=== PATIENT | female | born 1985 | race Caucasian/White ===

== ENCOUNTER 2018-12-30 11:50 | Outpatient (REF) | payer MEDICAID, SELFPAY ==
--- NOTE | 2018-12-30 10:45 | PAPFT_PTH ---
PATIENT: Shania Goff LOC: [facility] U#:[id number] AGE/SX: 33/F ROOM: RE12/30/[address]: MILTON Sauer : 1985 BED: DIS: 12/30/2018 SPEC #: [id number] RECD: 12/30/18 13:02 STATUS: PANKAJHarpreet MEIER #: [id number] PAOLA: 12/30/18 10:[address]: Evon Dean [facility] Cytology RECD BY: Claudia Phelan ENTERED: 12/30/18 13:02 SP TYPE: PAPFT OTHR DR: Jen Montanez Tissues: 1 - CX/ENDOCX FOR PAP SMEARS Procedures: PAP THIN PREP/UVM Screening HPV DNA PROBE Comments: [id number]
[2018-12-31 14:43] LABS: Chlamydia Result Negative; GC Result Negative; Specimen Description CERVIX
== END 2018-12-30 12:10 ==
LOC: LBN 11:50
PROVIDERS: PCP Nurse Practitioner; Visit Provider Nurse Practitioner Family
DX: Z11.3 Encounter for screening for infections with a predominantly sexual mode of transmission (principal); Z12.4 Encounter for screening for malignant neoplasm of cervix; Z11.51 Encounter for screening for human papillomavirus (HPV)
CPT/HCPCS: 87491; 87591; 88142; 87624

== ENCOUNTER 2019-02-08 19:37 | Emergency (ER) | payer MEDICAID, SELFPAY ==
[2019-02-08 19:40] VITALS: BP 183/101; PULSE 92; RESP 16; TEMP 36.7; O2SAT 100
--- NOTE | 2019-02-08 19:51 | ED.GENADUL_ITS ---
Discharge Plan Disposition Patient Disposition: HOME Condition: Stable Discharge Details Chief Complaint: Cellulitis Clinical Impression: Paronychia Primary Care Provider: Jen Montanez ED Provider: Iam Hobbs Home Meds and New Rx's Prescriptions: New sulfamethoxazole-trimethoprim [Bactrim DS] 800-160 mg tablet 1 tab PO BID Qty: 14 RF: 0 No Action medroxyprogesterone [Depo-Provera] 150 mg/mL suspension 150 mg IM Q 12 WEEKS Qty: 1 RF: 3 lisinopril 10 MG tablet 10 mg PO DAILY RF: 0 Discharge Instructions Instructions: Paronychia (ED) Additional Instructions: follow up with your primary care provider within 1-2 weeks. You should have your blood pressure rechecked as it was elevated here if you have redness spreading down the finger or severe worsening pain return to the emergency department Medical Decision Making pt comes in after she has had distal left middle finger redness and today squeeze the area aroud the fingernail and had discharge so came here. no fevers or systmeic symptoms, arrives in no distress. The distal dorsal left middle finger around the nail bed is red and there is no longer fluctuance in the area that she drains. No pain on finger bed so doubt felmehrdad. Suspect she had a paronychia that she drained prior to arrival. Will start abx, advised f/u with pcp and return precautions given Differential Diagnosis paronychia, cellulitis HPI General Mode of arrival: ambulatory . Date/Time Provider Initiated Documentation: 02/08/19 19:44 . Limitations to Documentation: no limitations . Information obtained by: patient . History of Present Illness 33 year old F presents to the emergency department with the chief complaint of left middle finger redness, described as moderate, Quality is described as aching, and is localized to the left and upper extremity. Patient started experiencing this week(s) (1) and it has been constant. No relieving factors improve symptom(s), No exacerbating factors reported . Related Data Home Medications Medication Instructions Recorded Confirmed lisinopril 10 mg PO DAILY tab-cap 03/09/16 02/08/19 medroxyprogesterone 150 mg/mL 150 mg IM Q 12 WEEKS #1 vial 10/02/18 02/08/19 intramuscular suspension sulfamethoxazole-trimethoprim 1 tab PO BID #14 tab 02/08/19 [Bactrim DS] Previous Rx's Medication Instructions Recorded medroxyprogesterone 150 mg/mL 150 mg IM Q 12 WEEKS #1 vial 10/02/18 intramuscular suspension sulfamethoxazole-trimethoprim 1 tab PO BID #14 tab 02/08/19 [Bactrim DS] Allergies Allergy/AdvReac Type Severity Reaction Status Date / Time No Known Drug Allergies Allergy Verified 02/08/19 19:45 General Stated Complaint: Cellulitis RICHARD: 4 Review of Systems Review of Systems All systems reviewed & are unremarkable except as noted in HPI and below Constitutional Denies chills, Denies fever(s) and Denies weakness Cardiovascular Denies chest pain and Denies dyspnea Respiratory Denies cough and Denies dyspnea Gastrointestinal Denies abdominal pain, Denies nausea and Denies vomiting Neurologic Denies weakness [facility] Social History Smoking/Tobacco Use Status: Never Alcohol Intake: current Alcohol Intake frequency: holidays/special occasions only Drug use: Never Do you feel safe at home: Yes Do you feel safe in your relationship?: Yes Female Reproductive History Menstrual control method: progesterone injection History History 4 Para 3 Hx # Term Pregnancies Multiple births Hx # Pregnancies Ectopic pregnancies AB induced Hx Number of Living Children AB spontaneous Exam Const General: no acute distress Orientation: alert HENMT Head: normal to inspection Ears: external ears normal General nose exam: external nose normal Mouth: moist mucous membranes Eyes General: appearance normal, both eyes and all related structures Neck Neck: normal visual inspection Resp Effort & Inspection: normal respiratory effort and able to speak in complete sentences Cardio Rate: regular rate Skin General skin exam: elasticity normal Neuro General: alert and oriented x3 Extrem General: normal capillary refill Psych Mental Status: mental status grossly normal Course Vital Signs Temperature 36.7 C 02/08/19 19:40 Pulse 92 H 02/08/19 19:40 Respiratory Rate 16 02/08/19 19:40 Blood Pressure 183/101 H 02/08/19 19:40 Pulse Oximetry 100 02/08/19 19:40 Temperature 36.7 C 02/08/19 19:40 Temperature Source Skin 02/08/19 19:40 Pulse 92 H 02/08/19 19:40 Respiratory Rate 16 02/08/19 19:40 Respiratory Effort Non-Labored 02/08/19 19:43 Blood Pressure 183/101 H 02/08/19 19:40 Pulse Oximetry 100 02/08/19 19:40 Pain Level 6 02/08/19 19:40
[2019-02-08 20:08] VITALS: BP 156/95; PULSE 70; RESP 16
[2019-02-08] MEDS: Sulfameth/Trimeth DS TAB 1 TAB PO (20:08)
== END 2019-02-08 20:10 | disposition home or self-care (01) ==
PROVIDERS: Emergency Provider Emergency Medicine; PCP Nurse Practitioner
DX: L03.012 Cellulitis of left finger (principal)
CPT/HCPCS: 99283

== ENCOUNTER 2019-04-29 11:51 | Outpatient (CLI) | payer MEDICAID, SELFPAY ==
[2019-04-29 19:46] LABS: ALT 29 U/L (14-59); AST 14 U/L (15-37); Alkaline Phosphatase 74 U/L (46-116); BUN 17 mg/dL (7-18); Bilirubin, Total 0.5 mg/dL (0.2-1.0); CREATININE 0.91 mg/dL (0.55-1.02); Calculated LDL 100 mg/dL; Chloride 105 mmol/L (98-107); Cholesterol 164 mg/dL (50-200); Glucose 89 mg/dL (70-100); HDL Cholesterol 38 mg/dL (40-60); Sodium 141 mmol/L (136-145); Total Protein 6.9 g/dL (6.4-8.2); Triglyceride 133 mg/dL (30-150)
== END 2019-04-29 12:11 ==
PROVIDERS: PCP Nurse Practitioner; Visit Provider Nurse Practitioner
DX: I10 Essential (primary) hypertension (principal)
CPT/HCPCS: 80053; 80061

== ENCOUNTER 2019-06-25 11:04 | Outpatient (REF) | payer MEDICAID, SELFPAY ==
--- NOTE | 2019-06-25 11:00 | ENDO_PTH ---
PATIENT: Shania Goff LOC: [facility] U#:[id number] AGE/SX: 34/F ROOM: RE06/25/[address]: Isabelle Barrera : 1985 BED: DIS: 06/25/2019 SPEC #: [id number] RECD: 06/25/19 13:07 STATUS: EMILI REQ #: [id number] PAOLA: 06/25/19 11:[address]: Isabelle Barrera DEPT: Surgical Specimen RECD BY: Claudia Phelan ENTERED: 06/25/19 13:07 SP TYPE: Endo OTHR DR: Jen Montanez Tissues: 1 - ENDOCERVICAL BX/CURRETTE Procedures: GROSS AND MICRO LEVEL 4 Comments: [id number]
== END 2019-06-25 11:24 ==
LOC: LBN 11:04
PROVIDERS: PCP Nurse Practitioner; Visit Provider Obstetrics & Gynecology Gynecology
DX: N87.9 Dysplasia of cervix uteri, unspecified (principal); R87.810 Cervical high risk human papillomavirus (HPV) DNA test positive
CPT/HCPCS: 88305

== ENCOUNTER 2019-08-09 12:04 | Emergency (ER) | payer MEDICAID, SELFPAY ==
[2019-08-09 12:16] VITALS: BP 176/98; PULSE 97; RESP 18; TEMP 36.8; O2SAT 99
[2019-08-09 12:19] LABS: Bilirubin Negative (Negative); Blood Trace-lysed (Negative); Clarity Clear (Clear); Glucose Negative (Negative); Ketones Negative (Negative); Leukocyte Esterase Trace (Negative); Nitrite Negative (Negative); Urobilinogen 0.2 EU/dL (Up TO 0.2); pH 6.5 (5-8)
[2019-08-09 12:28] LABS: Epithelial Cells Few HPF (Negative); Other Cells Few Transitional (Negative); RBC Negative HPF (0-2); WBC 0-2 HPF (0-5)
[2019-08-09 12:29] LABS: Bacteria Negative HPF (Negative); C & S Indicated? No/Sq. Contamination; Casts Negative LPF (Negative); Crystals Negative HPF (Negative); Mucus Negative (Negative)
--- NOTE | 2019-08-09 12:38 | ED.GENADUL_ITS ---
Discharge Plan Disposition Patient Disposition: HOME Condition: Stable Discharge Details Chief Complaint: Urinary Clinical Impression: Vomiting, Abdominal pain, Cholelithiasis Primary Care Provider: Jen Montanez ED Provider: Krissy Correia Home Meds and New Rx's Prescriptions: No Action Mirena 20 mcg/24 hours (5 yrs) 52 mg intrauterine device 1 device IY ONCE RF: 0 lisinopril 10 MG tablet 10 mg PO DAILY RF: 0 Medical Decision Making 1230 -- 34-year-old female presents with 5 days of vomiting, upper abdominal pain and lower back pain. She states she has a history of kidney stones and states this seems similar. She states she has vomited 1-3 times daily which is mainly consisted of food or bile. States her upper abdominal pain is intermittent, sharp and stabbing. She admits to urinary frequency but states she has been drinking more water and denies any dysuria or hematuria. She admits to normal bowel movements and denies any diarrhea. Denies any known fever. Blood pressure hypertensive, otherwise vitals within normal limits. Afebrile. She appears nontoxic. Tenderness to palpation of upper abdomen and bilateral CVA tenderness. Urinalysis obtained on arrival and notes trace leukocyte esterase and trace blood but no obvious other source of infection. Differential diagnosis includes gastritis, peptic ulcer disease, cholelithiasis, cholecystitis, kidney stone, etc. Will place an IV, bolus IV fluids, screening labs, CT renal colic and give a dose of Zofran, Pepcid, GI cocktail as well as Toradol. 1420 --labs and imaging reviewed. White blood cell count 11. Potassium 3.4. Lipase within normal limits. CT noted findings suspicious for noncalcified gallstone or sludge at the neck of the gallbladder. No pericholecystic fluid or biliary ductal dilatation. Bilateral nonobstructing renal calculi but no ureteral calculi or hydronephrosis. Patient states she feels somewhat better. Discussed that labs are reassuring and that presentation may not be consistent with acute cholecystitis. Contacted radiology and will attempt to obtain gallbladder ultrasound. If unavailable, patient states she feels fine to return to the hospital tomorrow for gallbladder ultrasound. Medical Records Medical records reviewed: Yes I reviewed the patient's medical records. Imaging Data Radiologic Study: Radiologist's impression: Addendum created by Mary Alcantar MD on 08/09/2019 2:12:31 PM EST There is an error in the impression. The impression should read: 1.Bilateral nonobstructing renal calculi. No ureteral calculi or hydronephrosis. 2. Findings suspicious for non-calcified gallstone or sludge at neck of gallbladder. No evidence of pericholecystic fluid nor biliary ductal dilatation. Initial report created on 08/09/2019 2:10:40 PM EST PROCEDURE INFORMATION: Exam: CT Abdomen And Pelvis Without Contrast Exam date and time: 08/09/2019 1:02 PM Age: 34 years old Clinical indication: Localized; Patient HX: Upper abdominal pain, lower back pain, gross hematuria x2 days, HX of kidney stones, no surgeries, not . TECHNIQUE: Imaging protocol: Computed tomography of the abdomen and pelvis without contrast. Radiation optimization: All CT scans at this facility use at least one of these dose optimization techniques: automated exposure control; mA and/or kV adjustment per patient size (includes targeted exams where dose is matched to clinical indication); or iterative reconstruction. COMPARISON: No relevant prior studies available. FINDINGS: Lungs: No significant abnormality is identified at the lung bases. Liver: No focal intrahepatic abnormality is identified. The superior aspect of the liver was not included in the [id number]. Gallbladder and bile ducts: There is possible low-density gallstone or sludge within the gallbladder. This is particularly seen at the neck of the gallbladder. There is no evidence of pericholecystic fluid There is no evidence of biliary ductal dilatation. Pancreas: Pancreas is unremarkable. Spleen: Superior aspect of the spleen was not included in [id number]. The spleen is otherwise unremarkable. Adrenals: Adrenals are unremarkable. Kidneys and ureters: Bilateral nonobstructing renal calculi are noted. On the left, there is a calculus in the left mid kidney. It measures approximately 4-5 mm in maximum diameter on series 5 image 37. On the right, there is a calculus at the lower pole of the right kidney measuring approximately 4 mm in diameter on sagittal reformatted image 80. No ureteral calculi or hydronephrosis is identified. There is no evidence of a discrete renal cortical mass. Stomach and bowel: Evaluation of the bowel is limited without oral, IV contrast but there is no evidence of bowel obstruction, mass or pneumatosis. There are a few scattered colonic diverticuli but no evidence of acute diverticulitis. Appendix: There are no findings to suggest acute appendicitis Intraperitoneal space: No free fluid focal collections or free intraperitoneal air. Vasculature: Vascular calcification is noted within the abdomen, pelvis. The aorta is non-aneurysmal. Lymph nodes: There are small mesenteric, retroperitoneal nodes which are not enlarged by size criteria Bladder: Urinary bladder is unremarkable. No bladder calculi Reproductive: The uterus is anteverted. Intrauterine device is noted. There is no significant adnexal abnormality identified. Bones/joints: Degenerative disc disease at L5-S1. No acute or destructive bony abnormality is identified. Soft tissues: Small fat containing umbilical hernia. IMPRESSION: Bilateral nonobstructing renal calculi. No ureteral calculi or hydronephrosis. Patient has had prior cystectomy. No significant biliary ductal dilatation. HPI General Mode of arrival: ambulatory . Date/Time Provider Initiated Documentation: 08/09/19 12:30 . Limitations to Documentation: no limitations . Information obtained by: patient . History of Present Illness 34 year old F presents to the emergency department with the chief complaint of vomiting, abdominal pain, back pain , Quality is described as stabbing and sharp, and is localized to the back and abdomen. Patient reports radiation to back. Patient started experiencing this day(s) (5) and it has been intermittent. No relieving factors improve symptom(s), No exacerbating factors reported . Patient notes loss of appetite; denies fever/chills, malaise, nausea/vomiting and shortness of breath. Patient did receive the following treatments prior to arrival, none Related Data Home Medications Medication Instructions Recorded Confirmed lisinopril 10 mg PO DAILY tab-cap 03/09/16 08/09/19 levonorgestrel 20 mcg/24 hours (5 1 device IY ONCE 07/09/19 08/09/19 yrs) 52 mg intrauterine device Allergies Allergy/AdvReac Type Severity Reaction Status Date / Time No Known Drug Allergies Allergy Verified 08/06/19 09:56 General Stated Complaint: Urinary RICHARD: 4 Review of Systems All systems reviewed & are unremarkable except as noted in HPI and below Constitutional Constitutional: Reports as per HPI, Denies chills and Denies fever(s) Eyes Eyes: Denies blurry vision ENT Ears, Nose, Mouth, and Throat: Denies dizziness, Denies sore throat and Denies throat swelling Cardiovascular Cardiovascular: Denies chest pain and Denies dyspnea Respiratory Respiratory: Denies cough and Denies dyspnea Gastrointestinal Gastrointestinal: Reports abdominal pain, Denies diarrhea and Reports vomiting Genitourinary Genitourinary: Denies hematuria and Denies dysuria Musculoskeletal Musculoskeletal: Reports back pain and Denies numbness Integumentary/Breasts Skin/Breast: Denies lesions and Denies rash Neurologic Neurologic: Denies dizziness, Denies focal weakness and Denies numbness Allergic/Immunologic Allergic/Immunologic: Denies throat swelling [facility] Medical History (Updated 08/09/19 @ 17:24 by Krissy Correia DO) ASCUS with positive high risk HPV (Resolved 08/10/15) Body mass index (BMI) of 40.0 to 49.9 (Chronic) 06/25/2019 Contraception (Acute 04/11/15) 06/25/2019 Depo-Provera times ~ 5 years after of youngest child. Patient counseled regarding Mirena IUD. Hypertension (Acute 07/07/15) Social History (Updated 06/25/19 @ 16:40 by Isabelle Barrera MD) Smoking/Tobacco Use Status: Never Alcohol Intake: current Alcohol Intake frequency: holidays/special occasions only Drug use: Never Household members: children and other Details: Not relationship. 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 Sexually active: No (Not in relationship) Do you feel safe at home: Yes Do you feel safe in your relationship?: Yes Female Reproductive History Menstrual control method: progesterone injection History History 4 Para 3 Hx # Term Pregnancies Multiple births Hx # Pregnancies Ectopic pregnancies AB induced Hx Number of Living Children AB spontaneous Exam Const General: cooperative, healthy appearing and no acute distress HENMT Head: normal to inspection Face and sinus: normal facial exam Eyes General: appearance normal, both eyes and all related structures EOM: EOM intact bilaterally Neck Neck: normal visual inspection and No submandibular swelling Lymphatic: no lymphadenopathy noted Chest Chest: normal inspection of the chest and no tenderness Resp Effort & Inspection: normal respiratory effort and able to speak in complete sentences Auscultation: clear to auscultation bilaterally Cardio Rate: regular rate Rhythm: regular rhythm GI Inspection: normal to inspection and obesity Palpation: soft, not firm, not rigid and tender in the epigastrum, in the LUQ and in the RUQ Auscultation: hypoactive bowel sounds Back/Spine/Pelvis Back: CVA tenderness (b/l ) Thoracic/Lumbar Spine: paraspinal tenderness (b/l lumbar) Skin General skin exam: no rashes or lesions noted Neuro General: alert, awake and oriented x3 Cognition: normal cognition Speech: speech normal Motor: muscle tone normal throughout Sensory Exam: no sensory deficits noted Extrem General: normal to inspection, full ROM, normal capillary refill, no calf tenderness bilaterally and no edema Psych Appearance: grossly normal Mental Status: mental status grossly normal Speech and Movement: speech and movement normal Affect: normal affect Course Vital Signs Vital signs: Vital Signs Temperature 98.2 F 08/09/19 12:16 Pulse 97 H 08/09/19 12:16 Respiratory Rate 18 08/09/19 12:16 Blood Pressure 176/98 H 08/09/19 12:16 Pulse Oximetry 99 08/09/19 12:16 Temperature 98.2 F 08/09/19 12:16 Temperature Source Skin 08/09/19 12:16 Pulse 97 H 08/09/19 12:16 Respiratory Rate 18 08/09/19 12:16 Respiratory Effort Non-Labored 08/09/19 12:19 Blood Pressure 176/98 H 08/09/19 12:16 Blood Pressure Position Sitting 08/09/19 12:16 Pulse Oximetry 99 08/09/19 12:16 Oxygen Delivery Method Room Air 08/09/19 12:16 Oxygen Flow Rate 0 08/09/19 12:16 Pain Level 9 08/09/19 12:16 Lab/Test Results Lab/Test Results: Laboratory Tests Range/Units 08/09/19 12:14 Urine Color (Yellow) Yellow Urine Clarity (Clear) Clear Urine pH (5-8) 6.5 Ur Specific [place] (1.005-1.025) 1.010 Urine Protein (Negative) mg/dL Negative Urine Ketones (Negative) mg/dL Negative Urine Blood (Negative) Trace-lysed H Urine Nitrite (Negative) Negative Urine Bilirubin (Negative) Negative Urine Urobilinogen (Up TO 0.2) EU/dL 0.2 Ur Leukocyte Esterase (Negative) Trace H Urine RBC (0-2) HPF Negative Urine WBC (0-5) HPF 0-2 Ur Epithelial Cells (Negative) HPF Few Urine Crystals (Negative) HPF Negative Urine Bacteria (Negative) HPF Negative Urine Casts (Negative) LPF Negative Urine Mucus (Negative) Negative Urine Other (Negative) Few transitional Ur Culture Indicated? No/sq. contamination Urine Glucose (Negative) mg/dL Negative
--- NOTE | 2019-08-09 13:29 | DI.CT_ITS ---
EXAM: CT RENAL COLIC WO CLINICAL HISTORY: upper abd pain, lower back pain. TECHNIQUE: Imaging Protocol: Axial computed tomography images with coronal and sagittal reformatted images were created and reviewed. CONTRAST MATERIAL: Intravenous: Omnipaque 350 Contrast volume:0 mL contrast route:IV - Oral: No COMPARISON: ABD PELVIS WITH CONTRAST from 11/21/2011 FINDINGS: ABDOMEN: Lung Bases: Normal where visualized. Liver: Normal density. No measurable mass. Dome not included. Gallbladder and biliary tract: Sludge or low-density stones seen within the gallbladder. No biliary ductal dilatation. Pancreas: Normal density, no abnormal calcifications or inflammatory process. Spleen: Normal. Kidneys: Normal size, contour and axis. There are bilateral nonobstructing stones. No masses seen. N o ureterolithiasis or hydronephrosis. Adrenal glands: No masses seen. Abdominal Aorta: Abdominal portion non-dilated. PELVIS: Bladder: Symmetric distention, no gross wall thickening. Bowel: No obstruction or bowel wall thickening. Colonic diverticulosis but no evidence of acute diver ticulitis. Normal appendix. Peritoneal cavity: No ascites, collection or mesenteric inflammatory response. Bones: Mild degenerative changes. Lymph nodes: Unremarkable. Reproductive organs: There is an intrauterine device in place. Otherwise unremarkable. IMPRESSION: 1. Bilateral nonobstructing nephrolithiasis. No ureterolithiasis or hydronephrosis. 2. Sludge or low-density stones within the gallbladder. No biliary ductal dilatation. Ultrasound ma y be considered for further evaluation. DATA REPOSITORY: All CT scans at this facility are submitted to the National Radiology Data Registry (NRDR) Dose Index Registry (DIR) with the [employer] (ACR). RADIATION OPTIMIZATION: All CT scans at this facility use at least one of these dose optimization te chniques: automated exposure control; mA and/or kV adjustment per patient size (includes targeted exa ms where dose is matched to clinical indication); or iterative reconstruction.
[2019-08-09] MEDS: FAMOTIDINE 20 MG/50 ML BAG 200 MG IVPB (13:38)
[2019-08-09] MEDS: Ondansetron 4 MG/2 ML VIAL IVP (13:39)
[2019-08-09] MEDS: Normal Saline 1,000 ML 1000 ML IV (13:39)
[2019-08-09] MEDS: Normal Saline Flush 10 ML SYR IVP (13:40)
[2019-08-09 13:45] LABS: Abs Immature Grans 0.04 k/cumm (0.0-0.09); Absolute Basophil Count 0.02 k/cumm (0.0-0.2); Absolute Eosinophil Count 0.14 k/cumm (0.0-0.7); Absolute Lymphocyte Count 2.69 k/cumm (1.2-3.4); Absolute Monocyte Count 0.88 k/cumm (0.11-0.7); Basophils % 0.2; Eosinophils % 1.3; HCT 38.1 % (36.0-46.0); HGB 13.1 g/dL (12.0-15.5); Immature Grans % 0.4 %; Lymphocytes % 24.3; Mean Corp. HGB Concentration 34.4 g/dL (32.0-36.0); Mean Corpuscular Hemoglobin 30.1 pg (27.0-33.0); Mean Corpuscular Volume 87.6 fL (80-95); Mean Platelet Volume 10.1 fL (8.0-11.0); Neutrophils % 65.8; Platelet Count 268 x1000/uL (130-400); RBC 4.35 m/cumm (4.00-5.20); RBC Distribution Width 12.8 % (11.7-14.6); White Blood Cell Count 11.06 k/cumm (4.4-10.8)
[2019-08-09 13:50] LABS: Absolute Neutrophil Count 7.28 k/cumm (1.2-6.7)
[2019-08-09 13:54] LABS: ALT 38 U/L (14-59); AST 22 U/L (15-37); Albumin 4.1 g/dL (3.4-5.0); Alkaline Phosphatase 84 U/L (46-116); Anion Gap 11.1 mmol/L (3-11); BUN 9 mg/dL (7-18); Bilirubin, Total 0.5 mg/dL (0.2-1.0); CO2 26.9 mmol/L (21.0-32.0); CREATININE 0.93 mg/dL (0.55-1.02); Calcium 9.2 mg/dL (8.5-10.1); Chloride 103 mmol/L (98-107); Glucose 97 mg/dL (74-106); Lipase 113 U/L (73-393); Potassium 3.4 mmol/L (3.5-5.1); Sodium 141 mmol/L (136-145); Total Protein 7.5 g/dL (6.4-8.2)
--- NOTE | 2019-08-09 14:08 | DI.VRAD_ITS ---
Addendum created by Mary Alcantar MD on 08/09/2019 2:12:31 PM EST There is an error in the impression. The impression should read: 1.Bilateral nonobstructing renal calculi. No ureteral calculi or hydronephrosis. 2. Findings suspicious for non-calcified gallstone or sludge at neck of gallbladder. No evidence of pericholecystic fluid nor biliary ductal dilatation. Initial report created on 08/09/2019 2:10:40 PM EST PROCEDURE INFORMATION: Exam: CT Abdomen And Pelvis Without Contrast Exam date and time: 08/09/2019 1:02 PM Age: 34 years old Clinical indication: Localized; Patient HX: Upper abdominal pain, lower back pain, gross hematuria x2 days, HX of kidney stones, no surgeries, not . TECHNIQUE: Imaging protocol: Computed tomography of the abdomen and pelvis without contrast. Radiation optimization: All CT scans at this facility use at least one of these dose optimization techniques: automated exposure control; mA and/or kV adjustment per patient size (includes targeted exams where dose is matched to clinical indication); or iterative reconstruction. COMPARISON: No relevant prior studies available. FINDINGS: Lungs: No significant abnormality is identified at the lung bases. Liver: No focal intrahepatic abnormality is identified. The superior aspect of the liver was not included in the [id number]. Gallbladder and bile ducts: There is possible low-density gallstone or sludge within the gallbladder. This is particularly seen at the neck of the gallbladder. There is no evidence of pericholecystic fluid There is no evidence of biliary ductal dilatation. Pancreas: Pancreas is unremarkable. Spleen: Superior aspect of the spleen was not included in [id number]. The spleen is otherwise unremarkable. Adrenals: Adrenals are unremarkable. Kidneys and ureters: Bilateral nonobstructing renal calculi are noted. On the left, there is a calculus in the left mid kidney. It measures approximately 4-5 mm in maximum diameter on series 5 image 37. On the right, there is a calculus at the lower pole of the right kidney measuring approximately 4 mm in diameter on sagittal reformatted image 80. No ureteral calculi or hydronephrosis is identified. There is no evidence of a discrete renal cortical mass. Stomach and bowel: Evaluation of the bowel is limited without oral, IV contrast but there is no evidence of bowel obstruction, mass or pneumatosis. There are a few scattered colonic diverticuli but no evidence of acute diverticulitis. Appendix: There are no findings to suggest acute appendicitis Intraperitoneal space: No free fluid focal collections or free intraperitoneal air. Vasculature: Vascular calcification is noted within the abdomen, pelvis. The aorta is non-aneurysmal. Lymph nodes: There are small mesenteric, retroperitoneal nodes which are not enlarged by size criteria Bladder: Urinary bladder is unremarkable. No bladder calculi Reproductive: The uterus is anteverted. Intrauterine device is noted. There is no significant adnexal abnormality identified. Bones/joints: Degenerative disc disease at L5-S1. No acute or destructive bony abnormality is identified. Soft tissues: Small fat containing umbilical hernia. IMPRESSION: Bilateral nonobstructing renal calculi. No ureteral calculi or hydronephrosis. Patient has had prior cystectomy. No significant biliary ductal dilatation. Dictated and Authenticated by: Mary Alcantar MD. Ordering:CORNELIA Rey MD
[2019-08-09] MEDS: Ketorolac 30 MG/ML VIAL IVP (14:11)
[2019-08-09] MEDS: Ondansetron O.D.T. 4 MG TABEF, 3 TABS/BTL PO (17:37)
== END 2019-08-09 18:15 | disposition home or self-care (01) ==
PROVIDERS: Emergency Provider Physician Assistant; PCP Nurse Practitioner
DX: M54.5 Low back pain (principal); R11.2 Nausea with vomiting, unspecified; R10.10 Upper abdominal pain, unspecified; K80.20 Calculus of gallbladder without cholecystitis without obstruction; Z87.442 Personal history of urinary calculi; I10 Essential (primary) hypertension
CPT/HCPCS: 36415; 80053; 81025; 83690; 96361; 96374; 96375; 99284; 74176; 81003; 81015; 85025; 99285; J1885; J2405

== ENCOUNTER 2019-08-12 02:07 | Outpatient (CLI) | payer MEDICAID, SELFPAY ==
--- NOTE | 2019-08-12 08:16 | DI.US_ITS ---
EXAM: US ABDOMEN LIMITED CLINICAL HISTORY: RUQ PAIN, VOMITING, GALLSTONE ON CT TECHNIQUE: Ultrasound abdomen performed using standard protocol. COMPARISON: SURVEY*(P) from 05/07/2011 FINDINGS: LIVER: Hepatomegaly. 19 cm. Hepatopetal flow through the portal vein. GALLBLADDER: 3.5 cm., Immobile gallstone in the neck of the gallbladder. No evidence of wall thicken ing. No pericholecystic fluid identified. KIDNEYS: The right kidney is normal in size. No evidence of renal calculi. No evidence of hydronephr osis. No renal mass or cyst identified. BILIARY SYSTEM: Common bile duct measures 5.1 mm. No intrahepatic biliary ductal dilation. VILLELA'S SIGN: Negative. PANCREAS: Normal where visualized. ABDOMINAL AORTA AND IVC: Visualized portions normal caliber. ASCITES: None seen. IMPRESSION: 3.5 cm, immobile gallstone in the neck of the gallbladder. No biliary ductal dilatation.
== END 2019-08-12 02:27 ==
PROVIDERS: PCP Nurse Practitioner; Visit Provider Physician Assistant
DX: R10.11 Right upper quadrant pain (principal); R11.10 Vomiting, unspecified; K80.70 Calculus of gallbladder and bile duct without cholecystitis without obstruction; K80.50 Calculus of bile duct without cholangitis or cholecystitis without obstruction; R10.13 Epigastric pain; I10 Essential (primary) hypertension
CPT/HCPCS: 96372; 99284; 76705; 81003; 81015; 99283

== ENCOUNTER 2019-08-12 08:24 | Emergency (ER) | payer MEDICAID, SELFPAY ==
[2019-08-12 08:29] VITALS: BP 155/103; PULSE 98; RESP 18; TEMP 36.7; O2SAT 99
--- NOTE | 2019-08-12 08:45 | ED.GENADUL_ITS ---
Discharge Plan Disposition Patient Disposition: HOME Condition: Good Discharge Details Chief Complaint: Abd Prob Clinical Impression: Biliary colic Primary Care Provider: Jen Montanez ED Provider: Yvon Plunkett Home Meds and New Rx's Prescriptions: New ondansetron HCl [Zofran] 4 mg tablet 4 mg PO Q8H Qty: 20 RF: 0 hydrocodone-acetaminophen [[place]] 5-325 mg tablet 1 tab PO BID PRN (Reason: pain) Qty: 7 RF: 0 No Action Mirena 20 mcg/24 hours (5 yrs) 52 mg intrauterine device 1 device IY ONCE RF: 0 lisinopril 10 MG tablet 10 mg PO DAILY RF: 0 Discharge Instructions Instructions: Abdominal Pain (ED) Additional Instructions: At this time your symptoms are still concerning for mild biliary colic. At this time the gallbladder otherwise looks well, however if additional stones just position it could cause problems. If you note continued or worsening of your pain, or change in your symptoms please return immediately. Please continue to drink plenty of fluids, recommending 10 to 12 cups of water per day. Avoid fatty and greasy foods. You can take 1000 mg of Tylenol every 6 hours and 600 mg of ibuprofen every 6 hours. You can alternate between the 2. If you notice any worsening of your symptoms, or any new symptoms such as vomiting, diarrhea, fever, chills, shortness of breath, chest pain, numbness, weakness, or fainting , please return immediately to the emergency department for reevaluation. Please follow up with your primary care provider as soon as possible for reassessment and reevaluation. As always, it was a pleasure participating in your medical care today. Referrals: Fabrice Joseph I [ NON-[facility] STAFF PHYSICIAN] - Jen Montanez [Primary Care Provider] - Medical Decision Making This is a 34-year-old female with no significant past medical history who presents for mild nausea, mild epigastric pain, very mild bilateral low back pain. Patient was seen and assessed on 08/09/2019, at that time she had a CT scan positive for few small stones in the kidneys, but no evidence of urolithiasis in the ureters, urinalysis is negative. Gallbladder did show evidence of a small gallstone in the neck of the gallbladder with no evidence of cholecystitis. Labs are otherwise unremarkable. Patient was discharged with plans for follow- up ultrasound today on 08/12. Ultrasound was performed today, and per radiology there is continued evidence of small amount of sludge and a gallstone in the neck of the gallbladder, but no evidence of gallbladder dilatation, or acute cholecystitis. Negative Porras sign sonographically. Kidneys were also unremarkable on limited ultrasound. Patient states that her nausea and vomiting has notably improved, but she is also eating less fatty foods. She still does admit to mild achiness in the epigastric region, in conjunction with mild low back pain which she states feels identical to her previous kidney stones. She denies any pain in the right lower abdominal quadrant, she denies any blood in the stool. She does think that she is seeing a small amount of blood in her urine. She states that the pain is slightly improved but still present would like something additional for the pain. Exam demonstrates no evidence of an acute surgical abdomen. Negative Porras sign both sonographically and clinically. No pain at McBurney's point, vital signs are stable. Laboratory work-up on her last visit just 2-1/2 days ago showed no evidence of renal dysfunction, and unremarkable urinalysis, normal bilirubin. With a continued normal ultrasonography, in conjunction with no clinical evidence of jaundice, Porras sign, or other abnormalities see no indication clinically at this time for repeat labs. I feel her signs and symptoms are clinically consistent with mild biliary colic and this does appear to be improving. We will schedule surgical follow-up for her, recommend continue Tylenol and Motrin, prescribed a few additional [place] only as needed for breakthrough pain. We will reevaluate with a urinalysis to make sure there is no evidence of infection, otherwise I would recommend continued NSAID therapy and hydration at home for potential kidney stones. With normal renal function on her recent testing, and a normal ultrasound on evaluation of the kidneys in conjunction with a otherwise unremarkable CT scan just 3 days ago I see no indication for repeat labs or imaging in regards to this. 10:11 AM Patient's urinalysis is negative for significant abnormality aside for trace ketones. No evidence of infection or significant RBCs. Patient's pain is notably improved. At this time she would still like to hold off on labs and imaging. We will give Zofran, and a few [place] to go. We will schedule outpatient surgical follow-up for the patient. Discussed red flags which to return. Signs and symptoms appear clinically consistent with mild biliary colic. I have extensively reviewed the treatment plan and discharge instructions with the patient. I have addressed all patient concerns at this time. The patient was made aware of what symptoms to monitor for that would warrant a return to the emergency department. Discussed the plan with the patient, they demonstrate verbal understanding and agreement with our assessment and plan at this time. IMPRESSION: Bilateral nonobstructing renal calculi. No ureteral calculi or hydronephrosis. Patient has had prior cystectomy. No significant biliary ductal dilatation. Dictated and Authenticated by: Mary Alcantar MD. Ordering:CORNELIA Rey MD HPI General Date/Time Provider Initiated Documentation: 08/12/19 08:26 . HPI Narrative: This is a 34-year-old female with no significant past medical history who presents for mild nausea, mild epigastric pain, very mild bilateral low back pain. Patient was seen and assessed on 08/09/2019, at that time she had a CT scan positive for few small stones in the kidneys, but no evidence of urolithiasis in the ureters, urinalysis is negative. Gallbladder did show evidence of a small gallstone in the neck of the gallbladder with no evidence of cholecystitis. Labs are otherwise unremarkable. Patient was discharged with plans for follow- up ultrasound today on 08/12. Ultrasound was performed today, and per radiology there is continued evidence of small amount of sludge and a gallstone in the neck of the gallbladder, but no evidence of gallbladder dilatation, or acute cholecystitis. Negative Porras sign sonographically. Kidneys were also unrema rkable on limited ultrasound. Patient states that her nausea and vomiting has notably improved, but she is also eating less fatty foods. She still does admit to mild achiness in the epigastric region, in conjunction with mild low back pain which she states feels identical to her previous kidney stones. She denies any pain in the right lower abdominal quadrant, she denies any blood in the stool. She does think that she is seeing a small amount of blood in her urine. She states that the pain is slightly improved but still present would like something additional for the pain. She has no other complaints at this time. She denies any red flags of fever, bilious vomiting, chills, or other complaints. Related Data Home Medications Medication Instructions Recorded Confirmed lisinopril 10 mg PO DAILY tab-cap 03/09/16 08/12/19 levonorgestrel 20 mcg/24 hours (5 1 device IY ONCE 07/09/19 08/12/19 yrs) 52 mg intrauterine device hydrocodone-acetaminophen [[place]] 1 tab PO BID PRN #7 tab 08/12/19 ondansetron HCl [Zofran] 4 mg PO Q8H #20 tab 08/12/19 Previous Rx's Medication Instructions Recorded hydrocodone-acetaminophen [[place]] 1 tab PO BID PRN #7 tab 08/12/19 ondansetron HCl [Zofran] 4 mg PO Q8H #20 tab 08/12/19 Allergies Allergy/AdvReac Type Severity Reaction Status Date / Time No Known Drug Allergies Allergy Verified 08/12/19 08:44 General Stated Complaint: Abd Prob RICHARD: 3 Review of Systems All systems reviewed & are unremarkable except as noted in HPI and below PFSH Medical History (Updated 08/12/19 @ 10:12 by Yvon Plunkett DO) ASCUS with positive high risk HPV (Resolved 08/10/15) Body mass index (BMI) of 40.0 to 49.9 (Chronic) 06/25/2019 Contraception (Acute 04/11/15) 06/25/2019 Depo-Provera times ~ 5 years after of youngest child. Patient counseled regarding Mirena IUD. Hypertension (Acute 07/07/15) Social History (Updated 06/25/19 @ 16:40 by Isabelle Barrera MD) Smoking/Tobacco Use Status: Never Alcohol Intake: current Alcohol Intake frequency: holidays/special occasions only Drug use: Never Substance use type: does not use Household members: children and other Details: Not relationship. 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 3.ENT: Atraumatic external nose and ears. Moist MM. Neck: Symmetric, trachea midline, No thyromegaly. 4.CVS: +S1/S2, No murmurs or gallops. Peripheral pulses 2+ and equal in all extremities. Brisk capillary refill in all extremities. 5.RESP: Unlabored respiratory effort. Clear to auscultation bilaterally. No wheezes rales or rhonchi 6.GI: Soft, minimal epigastric tenderness, no pain at McBurney's point, negative Porras sign. No evidence of an acute surgical abdomen. No flank or CVA tenderness. 7.MSK: Normocephalic/Atraumatic, Extremities w/o deformity or ttp No cyanosis or clubbing, Normal movement of all extremities 8.Skin: Warm, Dry. No rashes or lesions. 9.Neuro: slubber runner II-XII grossly intact. Sensation grossly intact, no focal neurologic deficits. 10.Psych: (AAO) x3. Appropriate mood and affect Course Vital Signs Vital signs: Vital Signs Temperature 36.7 C 08/12/19 08:29 Pulse 98 H 08/12/19 08:29 Respiratory Rate 18 08/12/19 08:29 Blood Pressure 155/103 H 08/12/19 08:29 Pulse Oximetry 99 08/12/19 08:29 Temperature 36.7 C 08/12/19 08:29 Temperature Source Temporal Artery Scan 08/12/19 08:29 Pulse 98 H 08/12/19 08:29 Respiratory Rate 18 08/12/19 08:29 Blood Pressure 155/103 H 08/12/19 08:29 Blood Pressure Position Sitting 08/12/19 08:29 Pulse Oximetry 99 08/12/19 08:29 Oxygen Delivery Method Room Air 08/12/19 08:29 Oxygen Flow Rate 0 08/12/19 08:29 Pain Level 7 08/12/19 08:29
[2019-08-12 09:02] LABS: Bilirubin Negative (Negative); Blood Negative (Negative); Clarity Sl Cloudy (Clear); Glucose Negative (Negative); Ketones Trace mg/dL (Negative); Leukocyte Esterase Negative (Negative); Nitrite Negative (Negative); Specific Gravity >= 1.030 (1.005-1.025)
[2019-08-12 09:14] LABS: WBC 0-2 HPF (0-5)
[2019-08-12 09:15] LABS: Bacteria Rare HPF (Negative); C & S Indicated? No; Casts Negative LPF (Negative); Crystals Few Amorphous HPF (Negative); Epithelial Cells Few HPF (Negative); Mucus Heavy (Negative); RBC 0-2 HPF (0-2)
[2019-08-12 09:52] VITALS: BP 160/89; PULSE 90; RESP 16; TEMP 37; O2SAT 99
[2019-08-12] MEDS: Ondansetron O.D.T. 4 MG TABEF PO (09:58)
[2019-08-12] MEDS: Ondansetron O.D.T. 4 MG TABEF, 3 TABS/BTL PO (10:21)
--- NOTE | 2019-08-12 10:23 | NUR.NOTE ---
Referral faxed to [facility] [phone].Nursing Note:
== END 2019-08-12 10:25 | disposition home or self-care (01) ==
PROVIDERS: Emergency Provider Student in an Organized Health Care Education/Training Program; PCP Nurse Practitioner
DX: K80.50 Calculus of bile duct without cholangitis or cholecystitis without obstruction (principal); R10.13 Epigastric pain; I10 Essential (primary) hypertension
CPT/HCPCS: 96372; 99284; 81003; 81015; 99283

== ENCOUNTER 2019-08-19 14:12 | Inpatient (IN) | payer MEDICAID, SELFPAY ==
[2019-08-19] VITALS (14 sets, daily range): BP systolic 135–166; BP diastolic 79–115; PULSE 81–101; RESP 17–37; TEMP 36.4–37.9; O2SAT 94–100
--- NOTE | 2019-08-19 07:00 | W.PM.OP ---
Date of service: 08/19/19 Time of Service: 14:25 Operative Note Operative Note DATE OF PROCEDURE: 08/19/19 PRE-OP DIAGNOSIS: Biliary Cholic POST-OP DIAGNOSIS: same Bilairy cholic with acute on chronic cholecystitis PROCEDURE: Laparoscopic Cholecystectomy with cholangiogram SURGEON: Nancy Chatman ASSISTING SURGEON: Ayah Campuzano [employer]NER [employer] MANAGER: Eliza Gleason ANESTHESIA: GETA (ASA 3/ Racheal Judd, KYM) ESTIMATED BLOOD LOSS: 100 PATHOLOGY: other (Gallbladder and contents) COMPLICATIONS: None Patient was transported to: PACU Patient's condition: stable Indications: Ms. Goff is a pleasant 34 year old female who was seen in the ER for abdominal pain. She underwent a CT scan which showed kidney stones as well as a solitary stone in her Gallbladder. She returned to the ER when her pain continued and she had nausea and vomiting. US was performed which showed a 3.2 cm stone stuck in the neck of the Gallbladder. No Ductal dilatation or pericholycystic fluid was noted. NO Kidney stones noted on US She was given some hydrocodon and Zofran. She is only taking 1 hydrocodon every 10 to 12 hours so she can work. Her Nausea has resolved. Her pain is constant and radiates from the RUQ to the chest and back. She denies fevers or chills. Findings: Large and pedunculated Gallbladder. A lot of inflammation around the Gallbladder and the Cystic duct. Procedure Description: After informed consent was obtained the patient was brought to the operating room, placed in a supine position and monitors were applied. SCDs were applied to her lower extremities and she was placed under general anesthesia and intubated without difficulty. Once intubated a Carlton catheter was placed in a standard sterile fashion. Her abdomen was then prepped and draped in a sterile fashion using ChloraPrep. At this point a timeout was done and the patient's name, date of , procedure type, allergies to medications, metal in her body, antibiotic and DVT prophylaxis were reviewed. Fire risk was assessed. At this point 0.25% Bupivocaine mixed with Exparel was injected just above the umbilicus into the dermis and subcutaneous tissue. A 5 mm incision was made with an 11 blade. The skin next to the incision was grasped with penetrating towel clamps and while pulling up on the skin I attempted to place a 5 mm port. Because of the patient BMI I was having to push pretty hard to get down to the fascia, so I removed the port. The incision was lenghthened to 2 cm. Using army-navy retractors the subcutaneous tissue was retracted so I could see the fascia. The fascia was grasped with Kochers. The fascia was then opened with scissors between the Jackson's. I was then able to easily place a 5 mm port under direct visualization into the abdomen. A towel clamp was placed on the skin to close the incision around the port. The abdomen was insuflated and then 3 more ports were placed. A 12 mm port was placed in the subxiphoid area and two 5 mm ports were placed in the right upper quadrant. The liver was inspected and looked healthy. The Gallbladder was noted to be quite large and thickened. The patient's bed was then turned to the left and her head was brought up. The gallbladder could not be readily grasped due to the thickness of the wall. I then used a laparoscopic syringe to control right bile out of the gallbladder to try and collapsed wall a little bit. I then again attempted to grasp the wall but it was still quite thick so I used a laparoscopic tenaculum to be able to grasp the gallbladder. I was then able to push the gallbladder towards the right shoulder. There was omentum stuck to the right lobe of the liver. The omentum was dissected away from the liver using a LigaSure dissector. The neck of the gallbladder was identified and a 3 cm stone was noted to be stuck in the neck. I was then able to milk the stone up into the body. As I pulled the neck of the gallbladder up I saw that the duodenum was adhered to the gallbladder. Using laparoscopic scissors the adhesions were cut as far away from the small bowel as possible. The duodenum was then swept down away from the gallbladder. Using the hook dissector I started by dissecting the peritoneum away from the gallbladder wall. I was able to visualize a stricture going right into the gallbladder which looked like the cystic artery. As I dissected medially from that structure I was able to see what looked like the cystic duct. It did look quite large and thick. I worked for 30 minutes just gently dissecting around the structure wanting to make sure that this was not the common bile duct being pulled up. I then tried the Kong clamp to get a cholangiogram done but could not get it in the right location due to all of the scar tissue. I then put a Michelle catheter into a small opening just below the gallbladder into this duct. A cholangiogram was shot but it showed the common bile duct and nothing flowing up into the liver. I looked at the Michelle catheter and the balloon had slipped down into the common bile duct. Another attempt was made at pulling the Michelle catheter up into the cystic duct but we could not get the dye to flow properly into the gallbladder. Further dissection was done medially to the structure and I was able to finally find the lymph node. This was dissected away as well as a lot of fatty tissue. I was finally able to dissect the duct circumferentially noting the liver behind it. As I followed that down I noted this did look like a cystic duct it was short. I was able to see the duct going into a much larger duct that was the common bile duct. Large clips were then placed over right at the neck with the gallbladder x2 and the gallbladder was cut leaving a small amount of gallbladder with the cystic duct. No bile leak was identified. The cystic artery which in this case was lateral and posterior was again identified I did see it split as it went into the gallbladder. Clips were placed x2 distally on both branches and then cut. Using the hook dissector I was able to find a plane between the gallbladder and the liver.The gallbladder was then dissected away from the liver bed and placed into an Endo Catch bag. The 12 mm port was removed I held onto the Endo Catch bag with a Kandi. Due to the size of the stone I had to make the incision about 3 cm in size in order to pull the bag out. Once the bag with the gallbladder was removed it was sent to pathology. The fascia was group home closed with a 0 Vicryl [id number] suture and the 12 mm port was placed back into the abdomen. The abdomen was insufflated and the liver bed was inspected. There was a small amount of bleeding identified from the liver bed and this was cauterized. FloSeal was sprayed onto the liver bed and a sheet of Surgicel was applied and held in place with a Ray-Tom. The abdomen was then irrigated with 2.5 liters of normal saline until the effluent was clear. Once all the fluid was removed the Ray-Tom was pulled out of the abdomen. At this point I asked for a sponge count as I had been putting Raytek in and removing them throughout the case. The sponge count was correct at this point. A 10 [place] Aiden, ADELINA drain was then placed through the 12 mm port site and laid in the gallbladder fossa. The other end of the drain was pulled out through the 5 mm port in the right upper quadrant. Once the drain was in place the 12 mm port was removed as well as the two 5 mm ports in the right upper quadrant. No bleeding was noted from the fascia. The abdomen was deflated completely and lastly the umbilical port was removed. The subxiphoid incision was then closed with another figure of 8-0 Vicryl suture. The subcutaneous tissue was reapproximated with 3-0 Vicryl. The dermis of all 4 incisions were closed with 4-0 Vicryl. The skin was dried and Mastisol and Steri-Strips were applied to all 4 incisions. The drain was secured with 2-0 nylon suture. 4 x 4's were placed over all 4 incisions and around the drain and secured with tape. Needle, instruments and sponge counts were correct at the end of the case. The Carlton catheter was removed. At this point the patient was woken up, extubated and taken back to recovery in stable condition. There were no immediate complications. Due to the length of the case and how difficult it was the patient will be kept overnight to able to keep an eye on her drain and make sure that her pain is well controlled and she does not have any postop nausea.
--- NOTE | 2019-08-19 07:06 | PDOC.DSDIS_ITS ---
Discharge Plan Disposition Patient Disposition: HOME Condition: Good Discharge Details Reason For Visit: BILIARY COLIC Attending Provider: Nancy Chatman Primary Care Provider: Jen Montanez Home Meds and New Rx's Prescriptions: No Action hydrocodone-acetaminophen [[place]] 5-325 mg tablet 1 tab PO BID MDD 2 tabs daily PRN (Reason: pain) Qty: 7 RF: 0 scopolamine base 1 mg over 3 days patch 3 day 1 patch TD Q3D PRN (Reason: nausea and vomiting) Qty: 1 RF: 0 Mirena 20 mcg/24 hours (5 yrs) 52 mg intrauterine device 1 device IY ONCE RF: 0 lisinopril 10 MG tablet 10 mg PO DAILY RF: 0 ondansetron HCl [Zofran] 4 mg tablet 4 mg PO Q8H Qty: 20 RF: 0 Discharge Instructions Instructions: Laparoscopic Cholecystectomy (DC) Additional Instructions: Activity at Home after surgery: 1. Make sure you walk outside at least 4 times per day 2. You should be able to climb a flight of stairs 3. No driving while in pain or taking pain medications 4. No strenuous activity or heavy lifting for 2 weeks (laparoscopic surgery) or 4 weeks (open surgery) Diet, Nutrition, & wound healin. Avoid alcohol until after you are recovered from your surgery 2. Make sure to eat plenty of lean protein (meat, fish, eggs, cottage cheese, beans) 3. Eat a variety of fruits and vegetables. Eat plenty of high fiber foods to avoid constipation. 4. Drink plenty of liquids to stay hydrated and avoid constipation Pain Medications: 1. Alternate Tylenol 1000 mg and Ibuprofen 600 mg every 3 hours 2. If a narcotic has been prescribed take as directed only for breakt hrough pain For Constipation: 1. Take Milk of Magnesia or MiraLax as needed for constipation Other: 1. You may shower daily. Do not scrub the incisions 2. Do not soak the incisions for 1 week 3. You may alternate ice and heat as needed for pain and swelling Wound Care: 1. Keep the incisions clean and dry Other Services that may have been ordered: 0 Home Health- to help with dressing changes 0 Outpatient physical therapy Please call our office if you develop: 1. Fevers >101.5 2. Nausea or Vomiting 3. Worsening pain 4. Redness and thick discharge from the wounds If after hours please call the Hospital at and ask to speak to the on-call surgeon Diet:: As Tolerated
[2019-08-19] MEDS: Lactated Ringers 1,000 ML 80 ML IV ×2 (09:13→15:32)
[2019-08-19] MEDS: ceFAZolin 2 GM/50 ML BAG IVPB (10:20)
[2019-08-19] MEDS: Bupivacaine 0.25% Pres-Free 30 ML VIAL (11:01)
[2019-08-19] MEDS: Cellulose,Oxidized 4X8 1 PACKET MC (11:11)
[2019-08-19] MEDS: Omnipaque 300 MG/ML 50 ML BTL (11:49)
--- NOTE | 2019-08-19 12:32 | DI.RAD_ITS ---
EXAM: XR CHOLANGIOGRAM OPERATIVE CLINICAL HISTORY: BILIARY COLIC. TECHNIQUE: Fluoroscopy was provided for the referring physician for guidance with performing operati ve cholangiogram. COMPARISON: No exams were available for comparison FINDINGS: Please see procedure note for details. Fluoro Time: 55.6 seconds
--- NOTE | 2019-08-19 12:34 | GB_PTH ---
PATIENT: Shania Goff LOC: U#:[id number] AGE/SX: 34/F ROOM: 231 RE08/20/[address]: Nancy Chatman MD : 1985 BED: A DIS: 08/22/2019 SPEC #: [id number] RECD: 08/19/19 17:54 STATUS: EMILI REQ #: [id number] PAOLA: 08/19/19 12:[address]: Nancy Chatman DEPT: [facility] RECD BY: Claudia Phelan ENTERED: 08/19/19 17:55 SP TYPE: GB OTHR DR: Jen Montanez Tissues: 1 - GALLBLADDER Procedures: GROSS AND MICRO LEVEL 3 Comments: [id number]
[2019-08-19 13:58] LABS: Bilirubin Negative (Negative); Blood Trace-intact (Negative); Clarity Cloudy (Clear); Glucose Negative (Negative); Ketones Trace mg/dL (Negative); Leukocyte Esterase Negative (Negative); Nitrite Negative (Negative); Specific Gravity 1.025 (1.005-1.025); Urobilinogen 0.2 EU/dL (Up TO 0.2); pH 5.5 (5-8)
[2019-08-19 14:15] LABS: Bacteria Few HPF (Negative); Epithelial Cells Few HPF (Negative); Mucus Negative (Negative); Other Cells Few Renal (Negative)
[2019-08-19 14:16] LABS: C & S Indicated? C&S Done As Ordered; Casts Negative LPF (Negative)
[2019-08-19] MEDS: fentaNYL 100 MCG/2 ML VIAL IVP ×2 (14:19→15:02)
[2019-08-19] MEDS: Droperidol 5 MG/2 ML VIAL 0.625 MG IVP (14:45)
[2019-08-19] MEDS: HYDROcodone 5/Acetaminophen 325 TAB PO (15:57)
[2019-08-19] MEDS: Enoxaparin 40 MG/0.4 ML SYR SC (15:57)
[2019-08-19] MEDS: Pantoprazole 40 MG VIAL IVP (15:57)
[2019-08-19] MEDS: Normal Saline Flush 10 ML SYR IV ×2 (15:58→21:59)
--- NOTE | 2019-08-19 16:41 | NUR.NOTE ---
Nursing Note: 1521H Patient from PACU admitted to Med/surg Rm 231 via bed accompanied by PACU nurses. 4 Dressing sites to abdomen with steri strips and covered with gauze. ADELINA drain draining bright red discharge. Complaints of 7/10 pain. Vital signs taken and stable at this time.
[2019-08-19] MEDS: Lactated Ringers 1,000 ML 75 ML IV ×2 (17:28→23:26)
[2019-08-19] MEDS: Ketorolac 30 MG/ML VIAL IVP (21:59)
[2019-08-19] MEDS: Acetaminophen 325 MG TAB 650 MG PO (23:22)
[2019-08-20] MEDS: HYDROcodone 5/Acetaminophen 325 TAB PO ×3 (00:12→16:51)
[2019-08-20 04:17] VITALS: BP 165/100; PULSE 97; RESP 18; TEMP 37.7; O2SAT 94
[2019-08-20 06:48] LABS: Platelet Count 296 x1000/uL (130-400)
[2019-08-20 07:05] LABS: ALT 129 U/L (14-59); AST 58 U/L (15-37); Alkaline Phosphatase 134 U/L (46-116); Anion Gap 9.3 mmol/L (3-11); BUN 9 mg/dL (7-18); Bilirubin, Total 0.2 mg/dL (0.2-1.0); CO2 26.7 mmol/L (21.0-32.0); CREATININE 0.86 mg/dL (0.55-1.02); Calcium 8.6 mg/dL (8.5-10.1); Chloride 108 mmol/L (98-107); Glucose 105 mg/dL (74-106); Potassium 3.5 mmol/L (3.5-5.1); Sodium 144 mmol/L (136-145); Total Protein 6.5 g/dL (6.4-8.2)
[2019-08-20 07:39] VITALS: BP 175/93; PULSE 94; RESP 18; TEMP 36.9; O2SAT 95
[2019-08-20] MEDS: Lisinopril 10 MG TAB PO (07:57)
[2019-08-20] MEDS: Normal Saline Flush 10 ML SYR IV ×3 (08:27→20:53)
[2019-08-20] MEDS: Ketorolac 30 MG/ML VIAL IVP (08:27)
--- NOTE | 2019-08-20 10:33 | W.PM.PROGNOT ---
Date of Service Date of service: 08/20/19 Time of Service: 08:00 Assessment and Plan Assessment and plan (1) Cholelithiasis: Status: Acute Assessment and plan: POD #1 particularly difficult case. Lots of scaring and inflammatory reaction (2) S/P laparoscopic cholecystectomy: Status: Acute (3) Bile leak, postoperative: Status: Acute Assessment and plan: will re eval this afternoon prob is going to need ERCP and stent. will call [facility] to check availability otherwise doing very well. Subjective Subjective Interval history since last seen: Pt is doing well. no headaches. No CP or SOB. no productive cough. no dysuria. no leg pain or swelling. tolerating po's. passing gas. appropriate postOp pain. ADELINA has gold w/ bile. 125cc oupt since 6:45am today. She has been up and walking Exam Const General: cooperative, healthy appearing, comfortable, no acute distress, well developed and well groomed Nutritional Appearance: average body habitus and well nourished Orientation: alert, awake and oriented x3 HENMT Head: normal to inspection, normocephalic and atraumatic Ears: hearing grossly normal bilaterally and external ears normal General nose exam: external nose normal Face and sinus: normal facial exam and sinuses nontender Mouth: oral mucosae normal, lip normal, tongue normal and moist mucous membranes Teeth and gingiva: dentition normal Eyes General: appearance normal, both eyes and all related structures Conjunctivae: conjunctivae normal Sclera: sclerae normal Pupils: PERRL Neck Neck: normal visual inspection and full ROM Chest Chest: normal inspection of the chest Resp Effort & Inspection: normal respiratory effort, able to speak in complete sentences, no cough, no nasal flaring, not tachypneic and no use of accessory muscles Auscultation: clear to auscultation bilaterally, no rales, no rhonchi and no wheezes Cardio Jugular venous pressure: no JVD Rate: regular rate Rhythm: regular rhythm GI Inspection: normal to inspection, no edema, non-distended and incision (c/d/i. bile outpt in ADELINA ) Palpation: soft, no masses, tender (mild at incision sites ) and No ascites Auscultation: normal bowel sounds Skin General skin exam: no rashes or lesions noted Trauma: no lacerations or abrasions Neuro General: alert, oriented x3, oriented, gait normal, moves all extremities, no focal motor deficits and CN's II-XI intact bilaterally Cognition: normal cognition Speech: speech normal Gait: normal gait Motor: muscle tone normal throughout Extrem General: normal to inspection, full ROM and no clubbing, cyanosis or edema Psych Appearance: grossly normal and well kempt Mental Status: mental status grossly normal Speech and Movement: speech and movement normal Affect: normal affect Objective Objective Clinical Data: Abnormal lab results 08/19/19 08/20/19 Range/Units 13:27 06:35 Chloride 108 H (98-107) mmol/L AST 58 H (15-37) U/L ALT 129 H (14-59) U/L Alkaline Phosphatase 134 H (46-116) U/L Albumin 3.0 L (3.4-5.0) g/dL Urine Ketones Trace H (Negative) mg/dL Urine Blood Trace-intact H (Negative) Urine RBC 3-5 H (0-2) HPF Vital Signs Temperature 36.9 C 08/20/19 07:39 Temperature Source Tympanic 08/20/19 07:39 Pulse 94 H 08/20/19 07:39 Pulse Rhythm Regular 08/20/19 00:26 Respiratory Rate 18 08/20/19 07:39 Respiratory Effort Non-Labored 08/20/19 09:48 Respiratory Depth Normal 08/20/19 09:48 Respiratory Pattern Normal 08/20/19 09:48 Blood Pressure 175/93 H 08/20/19 07:39 Pulse Oximetry 95 08/20/19 07:39 Respiratory End-tidal CO2 31 08/19/19 14:57 Oxygen Delivery Method Room Air 08/20/19 10:30 Oxygen Flow Rate 0 08/20/19 10:30 Pain Level 6 08/20/19 08:27 Comment 08/19/19 23:23 Intake & Output 08/19/19 08/19/19 08/20/19 11:59 23:59 11:59 Intake Total 50 / 1044.834 994.834 / 1044.834 Output Total 3255 / 3255 185 / 185 Balance 50 / -2210.166 -2260.166 / -2210.166 -185 / -185 Weight 112.9 kg Intake: IV 50 / 944.834 894.834 / 944.834 Injectate 100 / 100 Abdomen 100 / 100 Output: Drainage 905 / 905 185 / 185 Abdomen 905 / 905 185 / 185 Urine 2350 / 2350 Other: Urine Color Pale Yellow Yellow Urine Appearance Clear Clear Urine Odor None Comment one small pink clot in urine. Emesis Description None Voiding Methods Bedside Commode Toilet Laboratory Results Plt Count 296 x1000/uL (130-400) 08/20/19 06:35 Sodium 144 mmol/L (136-145) 08/20/19 06:35 Potassium 3.5 mmol/L (3.5-5.1) 08/20/19 06:35 Chloride 108 mmol/L (98-107) H 08/20/19 06:35 Carbon Dioxide 26.7 mmol/L (21.0-32.0) 08/20/19 06:35 Anion Gap 9.3 mmol/L (3-11) 08/20/19 06:35 BUN 9 mg/dL (7-18) 08/20/19 06:35 Creatinine 0.86 mg/dL (0.55-1.02) 08/20/19 06:35 Estimated GFR/1.73 m2 >= 60.00 (mL/min/1.73m2) 08/20/19 06:35 Glucose 105 mg/dL (74-106) 08/20/19 06:35 Calcium 8.6 mg/dL (8.5-10.1) 08/20/19 06:35 Total Bilirubin 0.2 mg/dL (0.2-1.0) 08/20/19 06:35 AST 58 U/L (15-37) H 08/20/19 06:35 ALT 129 U/L (14-59) H 08/20/19 06:35 Alkaline Phosphatase 134 U/L (46-116) H 08/20/19 06:35 Total Protein 6.5 g/dL (6.4-8.2) 08/20/19 06:35 Albumin 3.0 g/dL (3.4-5.0) L 08/20/19 06:35 Urine Color Yellow (Yellow) 08/19/19 13:27 Urine Clarity Cloudy (Clear) 08/19/19 13:27 Urine pH 5.5 (5-8) 08/19/19 13:27 Ur Specific [place] 1.025 (1.005-1.025) 08/19/19 13:27 Urine Protein Negative mg/dL (Negative) 08/19/19 13:27 Urine Ketones Trace mg/dL (Negative) H 08/19/19 13:27 Urine Blood Trace-intact (Negative) H 08/19/19 13:27 Urine Nitrite Negative (Negative) 08/19/19 13:27 Urine Bilirubin Negative (Negative) 08/19/19 13:27 Urine Urobilinogen 0.2 EU/dL (Up TO 0.2) 08/19/19 13:27 Ur Leukocyte Esterase Negative (Negative) 08/19/19 13:27 Urine RBC 3-5 HPF (0-2) H 08/19/19 13:27 Urine WBC 3-5 HPF (0-5) 08/19/19 13:27 Ur Epithelial Cells Few HPF (Negative) 08/19/19 13:27 Urine Crystals Many uric acid HPF (Negative) 08/19/19 13:27 Urine Bacteria Few HPF (Negative) 08/19/19 13:27 Urine Casts Negative LPF (Negative) 08/19/19 13:27 Urine Mucus Negative (Negative) 08/19/19 13:27 Urine Other Few renal (Negative) 08/19/19 13:27 Ur Culture Indicated? C&s done as ordered 08/19/19 13:27 Urine Glucose Negative mg/dL (Negative) 08/19/19 13:27
[2019-08-20 11:10] VITALS: BP 142/89; PULSE 92; RESP 17; TEMP 37.1; O2SAT 95
[2019-08-20] MEDS: Lactated Ringers 1,000 ML 75 ML IV (12:19)
--- NOTE | 2019-08-20 14:30 | PHARADMIT ---
Addendum entered by Dudley Vasquez III 08/21/19 11:49: Pharmacy Note Subjective ERCP & stent at [facility] today. Patient to return to [facility] afterwards. Objective VS-OK Pain:02/14 No Labs Assessment Hydromorphine % Morphine given for pain. Plan Awaiting patients return. Original Note: Admission Pharmacy Clinical Review biliary colic Code Status Full Code Current Weight 112.9 kg Renally Cleared and Narrow Therapeutic Index Meds Crcl ~108.4 mL/min using adjusted body weight QTc Value / Action Taken none BP Control, Fever BP 142/89 afebrile Electrolytes reviewed Cl 108 DVT Prophylaxis enoxaparin Opiate Usage / Scheduled Bowel Regimen Ordered prn/none Plt/SCr for Heparin / Enoxaparin plt 292 SCr 0.86 INR for Warfarin n/a H/H stable, WBC/Bands h/h 12.0/35.2 wbc 9.31 Antibiotic appropriateness none Cultures and Sensitivities urine culture pending Surgical ABX d/c within 24 hr none ordered postop DM control / Insulin Dosing BG 105 none Heart Failure (Check EF%) (BEBO's, B-Block, Diuretics) lisinopril IV to PO Switch n/a Home Meds Reviewed multiple PRODUCT DIRECTOR depressants: hydrocodone/APAP, scopolamine Home Meds Not Ordered ibuorofen (has ketorolac ordered), scopolamine Comments cholecystectomy yesterday
[2019-08-20 14:31] LABS: Abs Immature Grans 0.03 k/cumm (0.0-0.09); Absolute Basophil Count 0.02 k/cumm (0.0-0.2); Absolute Eosinophil Count 0.04 k/cumm (0.0-0.7); Absolute Lymphocyte Count 2.86 k/cumm (1.2-3.4); Absolute Monocyte Count 0.74 k/cumm (0.11-0.7); Absolute Neutrophil Count 5.62 k/cumm (1.2-6.7); Basophils % 0.2; Eosinophils % 0.4; HCT 35.2 % (36.0-46.0); Immature Grans % 0.3 %; Lymphocytes % 30.7; Mean Corp. HGB Concentration 34.1 g/dL (32.0-36.0); Mean Corpuscular Hemoglobin 30.2 pg (27.0-33.0); Mean Corpuscular Volume 88.4 fL (80-95); Mean Platelet Volume 9.7 fL (8.0-11.0); Monocytes % 7.9; Neutrophils % 60.5; Platelet Count 292 x1000/uL (130-400); RBC 3.98 m/cumm (4.00-5.20); RBC Distribution Width 12.1 % (11.7-14.6); White Blood Cell Count 9.31 k/cumm (4.4-10.8)
[2019-08-20 14:59] LABS: Prothrombin Time 10.4 sec (9.3-11.0)
[2019-08-20 15:26] VITALS: BP 154/96; PULSE 92; RESP 18; TEMP 36.7; O2SAT 96
[2019-08-20] MEDS: Enoxaparin 40 MG/0.4 ML SYR SC (16:12)
[2019-08-20] MEDS: Pantoprazole 40 MG VIAL IVP (16:13)
--- NOTE | 2019-08-20 17:53 | INITIAL_ITS ---
- If Service Date Differs Date of service: 08/20/19 Time of Service: 17:53 Care Management Initial Assess REASON FOR HOSPITALIZATION:: biliary colic PAST MEDICAL HISTORY/PAST SURGICAL HISTORY:: Lap joan 08/19/19 PREVIOUS FUNCTIONAL STATUS/SOCIAL/FAMILY SUPPORTS:: Shania lives with her 3 children in a mobile home in [place], [place]. 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 Shania is independent at baseline and cares for herself and her children. CURRENT FUNCTIONAL STATUS:: Shania was sitting up in bed when CM met baylee. She was pleasant and open to conversation. She shared that she had surgery (lap joan) yesterday but that there were complications and now she needs to go to [facility] for a special procedure (ERCP with stent) tomorrow . She stated that she will need to be out of work for another 10 days. Shania denied the need for services but is a little concerned about lost time from work with resulting loss of income. She is hopeing her tax returns arrive soon to help out. ADVANCE DIRECTIVES:: none on file Has patient been provided with information about the portal?: No Did the patient sign up for the portal?: No CODE STATUS:: Full Code INSURANCE COVERAGE / FINANCIAL ISSUES:: Medicaid CURRENT HOME/COMMUNITY SERVICES/EQUIPMENT:: none PRIMARY CARE PHYSICIAN:: yary Montanez POTENTIAL DISCHARGE NEEDS:: Follow up with PCP and discharge plan of care PATIENT/FAMILY EDUCATION NEEDS:: discharge plan, limitations, Ask me Three. TRANSPORTATION:: via private vehicle with friend/family PLAN:: Shania will likely be tranferred to [facility] for a same day procedure tomorrow and return later in the day.She will be discharged home with no new services and follow up with her providers and discharge plan of care. CM will continue to support patient, family and discharge planning needs.
[2019-08-20 19:44] VITALS: BP 145/86; PULSE 80; RESP 18; TEMP 37.4; O2SAT 93
[2019-08-20] MEDS: Lactated Ringers 1,000 ML 150 ML IV (20:24)
[2019-08-20] MEDS: Ondansetron 4 MG/2 ML VIAL IVP (20:52)
[2019-08-20] MEDS: traMADol 50 MG TAB PO (20:53)
[2019-08-20 23:14] VITALS: BP 129/84; PULSE 103; RESP 18; TEMP 37.6; O2SAT 95
[2019-08-21] MEDS: Ketorolac 30 MG/ML VIAL IVP (01:52)
[2019-08-21] MEDS: Lactated Ringers 1,000 ML 150 ML IV ×2 (01:53→10:09)
[2019-08-21 03:51] VITALS: BP 150/78; PULSE 90; RESP 16; TEMP 36.9; O2SAT 95
[2019-08-21] MEDS: Lisinopril 10 MG TAB PO (07:48)
--- NOTE | 2019-08-21 07:55 | PGE_ITS ---
Documented by User: GURPREET Shaffer 08/21/19 08:02 Date of Service Date of service: 08/21/19 Time of Service: 07:55 Assessment and Plan Assessment and plan (1) S/P laparoscopic cholecystectomy: Status: Acute Assessment and plan: POD #2 Patient is feeling well this morning. Denies abdominal pain. She is scheduled to have an ERCP at [facility] later today. She has been NPO since midnight. (2) Bile leak, postoperative: Status: Acute Subjective Subjective Interval history since last seen: Patient reports that she is feeling much better today. She denies any abdominal pain at this time. Exam Const General: cooperative, healthy appearing and comfortable Orientation: alert and oriented x3 Resp Effort & Inspection: normal respiratory effort, no audible wheezes and no cough GI Inspection: normal to inspection, non-distended and incision (steri strips in place. Drain in place with bloody serous fluid ) Palpation: soft Objective Objective Clinical Data: Abnormal lab results 08/20/19 Range/Units 14:20 RBC 3.98 L (4.00-5.20) m/cumm Hct 35.2 L (36.0-46.0) % Absolute Monocytes 0.74 H (0.11-0.7) k/cumm Vital Signs Temperature 36.9 C 08/21/19 03:51 Temperature Source Temporal Artery Scan 08/21/19 03:51 Pulse 90 08/21/19 03:51 Pulse Rhythm Regular 08/21/19 01:06 Respiratory Rate 16 08/21/19 03:51 Respiratory Effort Non-Labored 08/21/19 01:06 Respiratory Depth Normal 08/21/19 01:06 Respiratory Pattern Normal 08/21/19 01:06 Blood Pressure 150/78 H 08/21/19 03:51 Pulse Oximetry 95 08/21/19 03:51 Respiratory End-tidal CO2 31 08/19/19 14:57 Oxygen Delivery Method Room Air 08/21/19 03:51 Oxygen Flow Rate 0 08/21/19 03:51 Pain Level 4 08/20/19 20:53 Comment 08/19/19 23:23 Intake & Output 08/20/19 08/21/19 08/21/19 18:59 06:59 18:59 Intake Total 1496.25 / 3211.25 1715.0 / 3211.25 Output Total 2575 / 3925 1350 / 3925 Balance -1078.75 / -713.75 365.0 / -713.75 Intake: IV 1246.25 / 2721.25 1475.0 / 2721.25 Oral 250 / 490 240 / 490 Output: Drainage 375 / 475 100 / 475 Abdomen 375 / 475 100 / 475 Urine 2200 / 3450 1250 / 3450 Other: Urine Color Yellow Yellow Urine Appearance Clear Clear Urine Odor None None Voiding Methods Toilet Toilet Laboratory Results WBC 9.31 k/cumm (4.4-10.8) 08/20/19 14:20 RBC 3.98 m/cumm (4.00-5.20) L 08/20/19 14:20 Hgb 12.0 g/dL (12.0-15.5) 08/20/19 14:20 Hct 35.2 % (36.0-46.0) L 08/20/19 14:20 MCV 88.4 fL (80-95) 08/20/19 14:20 MCH 30.2 pg (27.0-33.0) 08/20/19 14:20 MCHC 34.1 g/dL (32.0-36.0) 08/20/19 14:20 RDW 12.1 % (11.7-14.6) 08/20/19 14:20 Plt Count 292 x1000/uL (130-400) 08/20/19 14:20 MPV 9.7 fL (8.0-11.0) 08/20/19 14:20 Immature Gran % 0.3 % 08/20/19 14:20 Neutrophils % 60.5 08/20/19 14:20 Lymphocytes % 30.7 08/20/19 14:20 Monocytes % 7.9 08/20/19 14:20 Eosinophils % 0.4 08/20/19 14:20 Basophils % 0.2 08/20/19 14:20 Absolute Neutrophils 5.62 k/cumm (1.2-6.7) 08/20/19 14:20 Absolute Lymphocytes 2.86 k/cumm (1.2-3.4) 08/20/19 14:20 Absolute Monocytes 0.74 k/cumm (0.11-0.7) H 08/20/19 14:20 Absolute Eosinophils 0.04 k/cumm (0.0-0.7) 08/20/19 14:20 Absolute Basophils 0.02 k/cumm (0.0-0.2) 08/20/19 14:20 PT 10.4 sec (9.3-11.0) 08/20/19 14:20 INR 1.0 (0.9-1.1) 08/20/19 14:20 Sodium 144 mmol/L (136-145) 08/20/19 06:35 Potassium 3.5 mmol/L (3.5-5.1) 08/20/19 06:35 Chloride 108 mmol/L (98-107) H 08/20/19 06:35 Carbon Dioxide 26.7 mmol/L (21.0-32.0) 08/20/19 06:35 Anion Gap 9.3 mmol/L (3-11) 08/20/19 06:35 BUN 9 mg/dL (7-18) 08/20/19 06:35 Creatinine 0.86 mg/dL (0.55-1.02) 08/20/19 06:35 Estimated GFR/1.73 m2 >= 60.00 (mL/min/1.73m2) 08/20/19 06:35 Glucose 105 mg/dL (74-106) 08/20/19 06:35 Calcium 8.6 mg/dL (8.5-10.1) 08/20/19 06:35 Total Bilirubin 0.2 mg/dL (0.2-1.0) 08/20/19 06:35 AST 58 U/L (15-37) H 08/20/19 06:35 ALT 129 U/L (14-59) H 08/20/19 06:35 Alkaline Phosphatase 134 U/L (46-116) H 08/20/19 06:35 Total Protein 6.5 g/dL (6.4-8.2) 08/20/19 06:35 Albumin 3.0 g/dL (3.4-5.0) L 08/20/19 06:35 Urine Color Yellow (Yellow) 08/19/19 13:27 Urine Clarity Cloudy (Clear) 08/19/19 13:27 Urine pH 5.5 (5-8) 08/19/19 13:27 Ur Specific [place] 1.025 (1.005-1.025) 08/19/19 13:27 Urine Protein Negative mg/dL (Negative) 08/19/19 13:27 Urine Ketones Trace mg/dL (Negative) H 08/19/19 13:27 Urine Blood Trace-intact (Negative) H 08/19/19 13:27 Urine Nitrite Negative (Negative) 08/19/19 13:27 Urine Bilirubin Negative (Negative) 08/19/19 13:27 Urine Urobilinogen 0.2 EU/dL (Up TO 0.2) 08/19/19 13:27 Ur Leukocyte Esterase Negative (Negative) 08/19/19 13:27 Urine RBC 3-5 HPF (0-2) H 08/19/19 13:27 Urine WBC 3-5 HPF (0-5) 08/19/19 13:27 Ur Epithelial Cells Few HPF (Negative) 08/19/19 13:27 Urine Crystals Many uric acid HPF (Negative) 08/19/19 13:27 Urine Bacteria Few HPF (Negative) 08/19/19 13:27 Urine Casts Negative LPF (Negative) 08/19/19 13:27 Urine Mucus Negative (Negative) 08/19/19 13:27 Urine Other Few renal (Negative) 08/19/19 13:27 Ur Culture Indicated? C&s done as ordered 08/19/19 13:27 Urine Glucose Negative mg/dL (Negative) 08/19/19 13:27 Documented by User: Mary Paz MD 08/22/19 10:45
[2019-08-21 08:38] VITALS: BP 137/96; PULSE 94; RESP 18; TEMP 37.1; O2SAT 95
--- NOTE | 2019-08-21 08:52 | NUR.NOTE ---
Nursing Note: Phone report given to Marnie at [facility]. All questions answered
[2019-08-21] MEDS: Normal Saline Flush 10 ML SYR IV ×2 (09:26→16:47)
[2019-08-21] MEDS: Ondansetron 4 MG/2 ML VIAL IVP (09:26)
--- NOTE | 2019-08-21 09:50 | W.NUTCONSULT ---
Date of service: 08/21/19 Time of Service: 09:50 Nutritional Consult ASSESSMENT: 34 year old female s/p bile leak postoperatively s/p lap joan. Following soft surgical diet with adequate intake. BMI indicates class 3 obesity. Not at nutritional risk at this time. MONITORING AND EVALUATION: weight, po intake, labs Time Spent in Nutritional Counseling and Treatment: 0 time spent face to face
[2019-08-21 10:05] VITALS: BP 146/90; PULSE 78; RESP 22; TEMP 36.9; O2SAT 97
[2019-08-21] MEDS: Simethicone 80 MG CHEW PO (10:07)
[2019-08-21] MEDS: LORazepam 0.5 MG TAB PO (10:08)
--- NOTE | 2019-08-21 10:25 | NUR.NOTE ---
Nursing Note: Patient rang for assistance at approximately 1000 to states that she was having 8/10 mid to right sided chest pressure. VS were obtained, see VS intervention. Patient was highly anxious about the pain. Simethacone given and patient got out of bed to move around. In less than 3 minutes her pain was completely resolved. Ativan given for anxiety and pre-transfer to and back to [facility]
[2019-08-21] MEDS: HYDROmorphone 2 MG/ML VIAL 0.5 MG IVP (10:36)
--- NOTE | 2019-08-21 11:21 | W.PM.PROGNOT ---
Date of Service Date of service: 08/21/19 Time of Service: 11:21 Subjective Subjective Interval history since last seen: pt doing ok. no Cp or SOB bile from ADELINA drain still plan on ERCP and stent today at [facility] stable for transfer paperwork completed Objective Objective Clinical Data: Abnormal lab results 08/20/19 Range/Units 14:20 RBC 3.98 L (4.00-5.20) m/cumm Hct 35.2 L (36.0-46.0) % Absolute Monocytes 0.74 H (0.11-0.7) k/cumm Vital Signs Temperature 36.9 C 08/21/19 10:05 Temperature Source Tympanic 08/21/19 10:05 Pulse 78 08/21/19 10:05 Pulse Rhythm Regular 08/21/19 08:20 Respiratory Rate 22 08/21/19 10:05 Respiratory Effort Non-Labored 08/21/19 08:20 Respiratory Depth Normal 08/21/19 08:20 Respiratory Pattern Normal 08/21/19 08:20 Blood Pressure 146/90 H 08/21/19 10:05 Pulse Oximetry 97 08/21/19 10:05 Respiratory End-tidal CO2 31 08/19/19 14:57 Oxygen Delivery Method Room Air 08/21/19 10:05 Oxygen Flow Rate 0 08/21/19 10:05 Pain Level 8 08/21/19 10:36 Comment 08/19/19 23:23 Intake & Output 08/20/19 08/20/19 08/21/19 11:59 23:59 11:59 Intake Total 250 / 2388.75 2138.75 / 2388.75 1770.0 / 1770.0 Output Total 535 / 3385 2850 / 3385 630 / 630 Balance -285 / -996.25 -711.25 / -996.25 1140.0 / 1140.0 Intake: IV 1898.75 / 1898.75 1770.0 / 1770.0 Oral 250 / 490 240 / 490 Output: Drainage 235 / 485 250 / 485 80 / 80 Abdomen 235 / 485 250 / 485 80 / 80 Urine 300 / 2900 2600 / 2900 550 / 550 Other: Urine Color Yellow Yellow Yellow Urine Appearance Clear Clear Clear Urine Odor None None Comment per patient Voiding Methods Toilet Toilet Toilet Laboratory Results WBC 9.31 k/cumm (4.4-10.8) 08/20/19 14:20 RBC 3.98 m/cumm (4.00-5.20) L 08/20/19 14:20 Hgb 12.0 g/dL (12.0-15.5) 08/20/19 14:20 Hct 35.2 % (36.0-46.0) L 08/20/19 14:20 MCV 88.4 fL (80-95) 08/20/19 14:20 MCH 30.2 pg (27.0-33.0) 08/20/19 14:20 MCHC 34.1 g/dL (32.0-36.0) 08/20/19 14:20 RDW 12.1 % (11.7-14.6) 08/20/19 14:20 Plt Count 292 x1000/uL (130-400) 08/20/19 14:20 MPV 9.7 fL (8.0-11.0) 08/20/19 14:20 Immature Gran % 0.3 % 08/20/19 14:20 Neutrophils % 60.5 08/20/19 14:20 Lymphocytes % 30.7 08/20/19 14:20 Monocytes % 7.9 08/20/19 14:20 Eosinophils % 0.4 08/20/19 14:20 Basophils % 0.2 08/20/19 14:20 Absolute Neutrophils 5.62 k/cumm (1.2-6.7) 08/20/19 14:20 Absolute Lymphocytes 2.86 k/cumm (1.2-3.4) 08/20/19 14:20 Absolute Monocytes 0.74 k/cumm (0.11-0.7) H 08/20/19 14:20 Absolute Eosinophils 0.04 k/cumm (0.0-0.7) 08/20/19 14:20 Absolute Basophils 0.02 k/cumm (0.0-0.2) 08/20/19 14:20 PT 10.4 sec (9.3-11.0) 08/20/19 14:20 INR 1.0 (0.9-1.1) 08/20/19 14:20 Sodium 144 mmol/L (136-145) 08/20/19 06:35 Potassium 3.5 mmol/L (3.5-5.1) 08/20/19 06:35 Chloride 108 mmol/L (98-107) H 08/20/19 06:35 Carbon Dioxide 26.7 mmol/L (21.0-32.0) 08/20/19 06:35 Anion Gap 9.3 mmol/L (3-11) 08/20/19 06:35 BUN 9 mg/dL (7-18) 08/20/19 06:35 Creatinine 0.86 mg/dL (0.55-1.02) 08/20/19 06:35 Estimated GFR/1.73 m2 >= 60.00 (mL/min/1.73m2) 08/20/19 06:35 Glucose 105 mg/dL (74-106) 08/20/19 06:35 Calcium 8.6 mg/dL (8.5-10.1) 08/20/19 06:35 Total Bilirubin 0.2 mg/dL (0.2-1.0) 08/20/19 06:35 AST 58 U/L (15-37) H 08/20/19 06:35 ALT 129 U/L (14-59) H 08/20/19 06:35 Alkaline Phosphatase 134 U/L (46-116) H 08/20/19 06:35 Total Protein 6.5 g/dL (6.4-8.2) 08/20/19 06:35 Albumin 3.0 g/dL (3.4-5.0) L 08/20/19 06:35 Urine Color Yellow (Yellow) 08/19/19 13:27 Urine Clarity Cloudy (Clear) 08/19/19 13:27 Urine pH 5.5 (5-8) 08/19/19 13:27 Ur Specific [place] 1.025 (1.005-1.025) 08/19/19 13:27 Urine Protein Negative mg/dL (Negative) 08/19/19 13:27 Urine Ketones Trace mg/dL (Negative) H 08/19/19 13:27 Urine Blood Trace-intact (Negative) H 08/19/19 13:27 Urine Nitrite Negative (Negative) 08/19/19 13:27 Urine Bilirubin Negative (Negative) 08/19/19 13:27 Urine Urobilinogen 0.2 EU/dL (Up TO 0.2) 08/19/19 13:27 Ur Leukocyte Esterase Negative (Negative) 08/19/19 13:27 Urine RBC 3-5 HPF (0-2) H 08/19/19 13:27 Urine WBC 3-5 HPF (0-5) 08/19/19 13:27 Ur Epithelial Cells Few HPF (Negative) 08/19/19 13:27 Urine Crystals Many uric acid HPF (Negative) 08/19/19 13:27 Urine Bacteria Few HPF (Negative) 08/19/19 13:27 Urine Casts Negative LPF (Negative) 08/19/19 13:27 Urine Mucus Negative (Negative) 08/19/19 13:27 Urine Other Few renal (Negative) 08/19/19 13:27 Ur Culture Indicated? C&s done as ordered 08/19/19 13:27 Urine Glucose Negative mg/dL (Negative) 08/19/19 13:27
--- NOTE | 2019-08-21 12:25 | CMPROGNOTE_ITS ---
- If Service Date Differs Date of service: 08/21/19 Time of Service: 12:25 Care Management Progress Note S/O: Shania was transported to [facility] today for an ERCP procedure. She will return this afternoon/evening once she is stable for transfer back. Per MD, Shania is recovering well post operatively, and she is feeling better. CM was unable to visit with her as she was getting ready for transport when CM attempted to meet her. CM will continue to follow. A: Shania is a 34 year old female admitted to [facility] on 08/19/2019 for biliary colic. P: Shania is at [facility] for an ERCP. She will go down and back to [facility], returning this afternoon/evening. Anticipate she will return home once medically cleared with no additional services. CM will continue to follow and support discharge planning considerations.
--- NOTE | 2019-08-21 12:25 | PDOC.CMPRO ---
- If Service Date Differs Date of service: 08/21/19 Time of Service: 12:25 Care Management Progress Note S/O: Shania was transported to [facility] [place] for an ERCP procedure. She will return this afternoon/evening once she is stable for transfer back. Per MD, Shania is recovering well post operatively, and she is feeling better. CM was unable to visit with her as she was getting ready for transport when CM attempted to meet her. CM will continue to follow. A: Shania is a 34 year old female admitted to [facility] on 08/19/2019 for biliary colic. P: Shania is at [facility] for [place] ER[place]. She will go down and back to [facility], returning this afternoon/evening. Anticipate she will return home once medically cleared with no additional services. CM will continue to follow and support discharge planning considerations.
--- NOTE | 2019-08-21 15:01 | NUR.NOTE ---
Nursing Note: Telephone report received from Marnie at [facility]. Bile leak found and fixed, debris also removed. A plastic biliary stent and a plastic pancreatic stent were placed. Patient received an Idomethycin supp to help prevent pancreatitis. She needs to have clear liquids for a total of 4 hours post procedure so she will be getting clear liquids until 1800. In 8 weeks to needs to return to have the stents removed. heart rate post procedure in the 80-90s, last BP 140/95, SaO2 93% RA. The patient's ADELINA drain was emptied of 75cc sero-sang fluid. The patient has voided and received 1L LR while there.
[2019-08-21 16:38] VITALS: BP 161/92; PULSE 96; RESP 20; TEMP 37.6; O2SAT 93
[2019-08-21] MEDS: Enoxaparin 40 MG/0.4 ML SYR SC (16:47)
[2019-08-21] MEDS: Pantoprazole 40 MG VIAL IVP (16:47)
[2019-08-21] MEDS: Ibuprofen 600 MG TAB PO (18:43)
[2019-08-21] MEDS: Milk of Magnesia 30 ML CUP PO (18:43)
[2019-08-21 19:15] VITALS: BP 149/88; PULSE 94; RESP 18; TEMP 37.4; O2SAT 92
[2019-08-21] MEDS: Docusate Sodium 100 MG CAP PO (19:29)
[2019-08-22] MEDS: Lactated Ringers 1,000 ML 100 ML IV (00:17)
[2019-08-22 00:40] VITALS: BP 140/90; PULSE 102; RESP 23; TEMP 37.5; O2SAT 94
[2019-08-22] MEDS: Ibuprofen 600 MG TAB PO ×2 (00:42→06:43)
[2019-08-22 03:31] VITALS: BP 149/87; PULSE 93; RESP 22; TEMP 37.3; O2SAT 93
[2019-08-22 06:34] LABS: ALT 104 U/L (14-59); AST 46 U/L (15-37); Albumin 2.9 g/dL (3.4-5.0); Alkaline Phosphatase 130 U/L (46-116); Amylase 28 U/L (25-115); BUN 8 mg/dL (7-18); Bilirubin, Total 0.3 mg/dL (0.2-1.0); CREATININE 0.81 mg/dL (0.55-1.02); Calcium 8.2 mg/dL (8.5-10.1); Chloride 108 mmol/L (98-107); Glucose 95 mg/dL (74-106); Lipase 149 U/L (73-393); Potassium 3.5 mmol/L (3.5-5.1); Sodium 143 mmol/L (136-145); Total Protein 6.2 g/dL (6.4-8.2)
[2019-08-22] MEDS: Docusate Sodium 100 MG CAP PO (08:16)
[2019-08-22] MEDS: Lisinopril 10 MG TAB PO (08:16)
[2019-08-22 08:24] VITALS: BP 125/83; PULSE 91; RESP 18; TEMP 37.4; O2SAT 95
--- NOTE | 2019-08-22 10:26 | W.PM.DS.N ---
Date of service: 08/22/19 Time of Service: 10:27 DS: Diagnosis Discharge Diagnosis (1) S/P laparoscopic cholecystectomy: Status: Acute (2) Bile leak, postoperative: Status: Acute Discharge Plan Disposition Patient Disposition: HOME Condition: Good Discharge Details Reason For Visit: BILIARY COLIC Admit Date/Time: 08/20/19 15:02 Admit Provider: Nancy Chatman Attending Provider: Nancy Chatman Primary Care Provider: Jen Montanez Hospital Course Hospital Course: This patient presented for routine laparoscopic cholecystectomy for biliary colic. Intraoperatively she was found to have a significantly chronically inflamed gallbladder with difficult dissection. Due to this a drain was left. On postoperative day 1 she was noted to have bile within the drain. She was otherwise doing well. Her total bilirubin remained normal although she did have a mild elevation in her hepatocellular enzymes. The patient went down to [facility] on the for ERCP which showed a leak from the cystic duct. A stent was placed and will need to be removed in 8 weeks. On the day of discharge she was feeling well. Her pain was controlled with ibuprofen. She denied shortness of breath or cough or chest pain. She is tolerating a liquid diet. On examination her lungs were clear heart regular rate and rhythm abdomen soft and incisions healing well. Her drain had a small amount of serous sanguinous fluid in it but no bile. Home Meds and New Rx's Prescriptions: New hydrocodone-acetaminophen 5-325 mg Tablet 1 tab PO Q4H PRN PRNQty: 10 RF: 0 ibuprofen 800 mg tablet 800 mg PO Q8H PRN (Reason: pain) Qty: 30 RF: 0 hydrocodone-acetaminophen 5-325 mg tablet 1 tab PO Q4H PRN (Reason: pain) Qty: 10 RF: 0 Continued scopolamine base 1 mg over 3 days patch 3 day 1 patch TD Q3D PRN (Reason: nausea and vomiting) Qty: 1 RF: 0 Mirena 20 mcg/24 hours (5 yrs) 52 mg intrauterine device 1 device IY ONCE RF: 0 lisinopril 10 MG tablet 10 mg PO DAILY RF: 0 ondansetron HCl [Zofran] 4 mg tablet 4 mg PO Q8H Qty: 20 RF: 0 Discontinued hydrocodone-acetaminophen [[place]] 5-325 mg tablet 1 tab PO BID MDD 2 tabs daily PRN (Reason: pain) Qty: 7 RF: 0 ibuprofen 200 mg Tablet 400 mg PO Q6H PRNRF: 0 Discharge Instructions Instructions: Laparoscopic Cholecystectomy (DC) Additional Instructions: Activity at Home after surgery: 1. Make sure you walk outside at least 4 times per day 2. You should be able to climb a flight of stairs 3. No driving while in pain or taking pain medications 4. No strenuous activity or heavy lifting for 2 weeks (laparoscopic surgery) or 4 weeks (open surgery) Diet, Nutrition, & wound healin. Avoid alcohol until after you are recovered from your surgery 2. Make sure to eat plenty of lean protein (meat, fish, eggs, cottage cheese, beans) 3. Eat a variety of fruits and vegetables. Eat plenty of high fiber foods to avoid constipation. 4. Drink plenty of liquids to stay hydrated and avoid constipation Pain Medications: 1. Alternate Tylenol 1000 mg and Ibuprofen 600 mg every 3 hours 2. If a narcotic has been prescribed take as directed only for breakthrough pain For Constipation: 1. Take Milk of Magnesia or MiraLax as needed for constipation Other: 1. You may shower daily. Do not scrub the incisions 2. Do not soak the incisions for 1 week 3. You may alternate ice and heat as needed for pain and swelling Wound Care: 1. Keep the incisions clean and dry Other Services that may have been ordered: 0 Home Health- to help with dressing changes 0 Outpatient physical therapy Please call our office if you develop: 1. Fevers >101.5 2. Nausea or Vomiting 3. Worsening pain 4. Redness and thick discharge from the wounds If after hours please call the Hospital at and ask to speak to the on-call surgeon REPEAT ERCP IN 8 WEEKS TO REM[place] ST[place] [facility] [place] Referrals: Nancy Chatman MD [ [facility] STAFF PHYSICIAN] - (Return on Friday 08/25 for drain removal. Please call the office on Saturday) Activity:: Do not lift more than 15# Equipment/Supplies:: No Equipment Needed Diet:: Low fat Discharge Orders Discharge Orders: Discharge Order (Routine); Ordered 08/22/19 Ordered By: Mary Paz DS: Summary Status at Discharge Functional status at discharge: independent ambulation Overall status at discharge: patient is progressing back to baseline Mental Status: mental status grossly normal Speech and Movement: speech and movement normal Mood: congruent mood Affect: normal affect Exam Psych Mental Status: mental status grossly normal Speech and Movement: speech and movement normal Mood: congruent mood Affect: normal affect DS: Data Vitals/I&O Vitals and I&O: Vital Signs Temperature 99.3 F 08/22/19 08:24 Temperature Source Tympanic 08/22/19 08:24 Pulse 91 H 08/22/19 08:24 Pulse Rhythm Regular 08/22/19 08:25 Respiratory Rate 18 08/22/19 08:24 Respiratory Effort 08/22/19 08:25 Respiratory Depth Normal 08/22/19 08:25 Respiratory Pattern Normal 08/22/19 08:25 Blood Pressure 125/83 08/22/19 08:24 Pulse Oximetry 95 08/22/19 08:24 Respiratory End-tidal CO2 31 08/19/19 14:57 Oxygen Delivery Method Room Air 08/22/19 08:24 Oxygen Flow Rate 0 08/22/19 08:24 Pain Level 0 08/22/19 08:24 Comment 08/19/19 23:23 Intake & Output 08/21/19 08/21/19 08/22/19 11:59 23:59 11:59 Intake Total 1822.5 / 2310.0 487.5 / 2310.0 585 / 585 Output Total 630 / 1625 950 / 1625 1095 / 1095 Balance 1192.5 / 685.0 -462.5 / 685.0 -510 / -510 Intake: IV 1822.5 / 2070.0 247.5 / 2070.0 585 / 585 Oral 240 / 240 Output: Drainage 80 / 275 150 / 275 70 / 70 Abdomen 80 / 275 150 / 275 70 / 70 Urine 550 / 1350 800 / 1350 1025 / 1025 Other: Urine Color Yellow Pale Yellow Yellow Urine Appearance Clear Clear Clear Urine Odor None None Comment per patient PATIENT VOIDING INDEPENDENTLY. Stool Size Small Stool Characteristics Formed Hard Brown Voiding Methods Toilet Toilet Toilet Data Completed and Pending Labs on day of discharge: Labs from last 24 hours 08/22/19 06:03 Sodium 143 Potassium 3.5 Chloride 108 H Carbon Dioxide 26.0 Anion Gap 9.0 BUN 8 Creatinine 0.81 Estimated GFR/1.73 m2 >= 60.00 Glucose 95 Calcium 8.2 L Total Bilirubin 0.3 AST 46 H ALT 104 H Alkaline Phosphatase 130 H Total Protein 6.2 L Albumin 2.9 L Amylase 28 Lipase 149 PFSH Medical History ASCUS with positive high risk HPV (Resolved 08/10/15) Bile leak, postoperative (Acute) Body mass index (BMI) of 40.0 to 49.9 (Resolved) 06/25/2019 Contraception (Resolved 04/11/15) 06/25/2019 Depo-Provera times ~ 5 years after of youngest child. Patient counseled regarding Mirena IUD. HPV test positive (Inactive) Positive HPV since 2008. Negative colpo directed biopsies. 12/30/18 Neg pap/Pos HPV 06/25/2019: ECC- Hypertension (Resolved 07/07/15) IUD surveillance (Inactive) Surgical History H/O wisdom tooth extraction (Acute) S/P ERCP (Acute) S/P laparoscopic cholecystectomy (Acute) Family History Son Developmental delay agenesis of the corpus collosum. Severe disabilities Social History Smoking/Tobacco Use Status: Never Alcohol Intake: current Alcohol Intake frequency: holidays/special occasions only Alcohol type: other Drug use: Never Substance use type: does not use Household members: children and other Details: Not relationship. 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
== END 2019-08-22 12:00 | disposition home or self-care (01) | DRG 418 ==
LOC: MS 16:12
PROVIDERS: Surgery; Admitting Provider Surgery; PCP Nurse Practitioner; Visit Provider Surgery
PROC: 0FT44ZZ Resection of Gallbladder, Percutaneous Endoscopic Approach (ICD-10-PCS; CPT 47562; principal; 2019-08-19 10:30)
DX: K80.12 Calculus of gallbladder with acute and chronic cholecystitis without obstruction (principal); K91.89 Other postprocedural complications and disorders of digestive system; Z68.42 Body mass index [BMI] 45.0-49.9, adult; Z96.89 Presence of other specified functional implants; E66.9 Obesity, unspecified; Z98.890 Other specified postprocedural states
CPT/HCPCS: 47563; 36415; 80053; 83690; 99238; J1650; NC; 43264; 74300; 81003; 81015; 82150; 85025; 85049; 85610; 87086; 88304; A0425; A0999; G0378; J0131; J0690; J1100; J1790; J1885; J2405; J3010; Q9967

== ENCOUNTER 2020-01-01 11:48 | Outpatient (REF) | payer MEDICAID, SELFPAY ==
--- NOTE | 2020-01-01 11:20 | PAPFT_PTH ---
PATIENT: Shania Goff LOC: [facility] U#:[id number] AGE/SX: 34/F ROOM: RE01/01/[address]: MILTON Sauer : 1985 BED: DIS: 01/01/2020 SPEC #: [id number] RECD: 01/01/20 15:58 STATUS: EMILI REQ #: [id number] PAOLA: 01/01/20 11:[address]: Evon Dean DEPT: [facility] Cytology RECD BY: Claudia Phelan ENTERED: 01/01/20 15:59 SP TYPE: PAPFT OTHR DR: Jen Montanez Tissues: 1 - CX/ENDOCX FOR PAP SMEARS Procedures: PAP THIN PREP/UVM Screening HPV DNA PROBE Comments: [id number]
[2020-01-04 16:43] LABS: Chlamydia Result Negative (Negative); GC Result Negative (Negative)
== END 2020-01-01 12:08 ==
LOC: LBN 11:48
PROVIDERS: PCP Nurse Practitioner; Visit Provider Nurse Practitioner Family
DX: Z11.3 Encounter for screening for infections with a predominantly sexual mode of transmission (principal); Z12.4 Encounter for screening for malignant neoplasm of cervix; Z11.51 Encounter for screening for human papillomavirus (HPV); R87.610 Atypical squamous cells of undetermined significance on cytologic smear of cervix (ASC-US)
CPT/HCPCS: 87491; 87591; 88142; 87624

== ENCOUNTER 2020-02-12 11:33 | Outpatient (REF) | payer MEDICAID, SELFPAY ==
--- NOTE | 2020-02-12 11:20 | ENDO_PTH ---
PATIENT: Shania Goff LOC: [facility] U#:[id number] AGE/SX: 34/F ROOM: RE02/12/[address]: Isabelle Barrera : 1985 BED: DIS: 02/12/2020 SPEC #: [id number] RECD: 02/12/20 12:57 STATUS: EMILI REQ #: [id number] PAOLA: 02/12/20 11:[address]: Isabelle Barrera DEPT: Surgical Specimen RECD BY: Claudia Phelan ENTERED: 02/12/20 12:58 SP TYPE: Endo OTHR DR: Jen Montanez Tissues: 1 - ENDOCERVICAL BX/CURRETTE 2 - CERVICAL BIOPSY Procedures: GROSS AND MICRO LEVEL 4 Comments: [id number]
== END 2020-02-12 11:53 ==
LOC: LBN 11:33
PROVIDERS: PCP Nurse Practitioner; Visit Provider Obstetrics & Gynecology Gynecology
DX: R87.618 Other abnormal cytological findings on specimens from cervix uteri (principal); N72 Inflammatory disease of cervix uteri
CPT/HCPCS: 88305

== ENCOUNTER 2020-12-08 17:11 | Outpatient (REF) | payer MEDICAID, SELFPAY ==
[2020-12-12 14:57] LABS: Chlamydia Result Negative (Negative); GC Result Negative (Negative)
== END 2020-12-08 17:12 | disposition home or self-care (01) ==
LOC: LBN 17:11
PROVIDERS: PCP Nurse Practitioner; Visit Provider Nurse Practitioner Family
DX: Z11.3 Encounter for screening for infections with a predominantly sexual mode of transmission (principal)
CPT/HCPCS: 87491; 87591

== ENCOUNTER 2021-01-02 12:59 | Outpatient (REF) | payer MEDICAID, SELFPAY ==
--- NOTE | 2021-01-02 11:45 | PAPFT_PTH ---
PATIENT: Shania Goff LOC: [facility] U#:[id number] AGE/SX: 35/F ROOM: RE01/02/[address]: MILTON Sauer : 1985 BED: DIS: 01/02/2021 SPEC #: [id number] RECD: 01/02/21 18:12 STATUS: EMILI REQ #: [id number] PAOLA: 01/02/21 11:[address]: Evon Dean DEPT: [facility] Cytology RECD BY: Claudia Phelan ENTERED: 01/02/21 18:12 SP TYPE: PAPFT OTHR DR: Jen Montanez Tissues: 1 - CX/ENDOCX FOR PAP SMEARS Procedures: PAP THIN PREP/UVM Screening HPV DNA PROBE Comments: [id number]
== END 2021-01-02 13:00 | disposition home or self-care (01) ==
LOC: LBN 12:59
PROVIDERS: PCP Nurse Practitioner; Visit Provider Nurse Practitioner Family
DX: Z12.4 Encounter for screening for malignant neoplasm of cervix (principal); R87.611 Atypical squamous cells cannot exclude high grade squamous intraepithelial lesion on cytologic smear of cervix (ASC-H); Z11.51 Encounter for screening for human papillomavirus (HPV); R87.810 Cervical high risk human papillomavirus (HPV) DNA test positive
CPT/HCPCS: 88142; 87624

== ENCOUNTER 2021-01-16 18:49 | Emergency (ER) | payer MEDICAID, SELFPAY ==
[2021-01-16] VITALS (22 sets, daily range): BP systolic 150–222; BP diastolic 65–104; PULSE 88–97; RESP 16; TEMP 36.5; O2SAT 95–98
--- NOTE | 2021-01-16 19:15 | DI.CT_ITS ---
Exam(s) CT RENAL COLIC WO EXAM: CT RENAL COLIC WO CLINICAL HISTORY: Right flank pain, vomiting. TECHNIQUE: Imaging Protocol: Axial computed tomography images with coronal and sagittal reformatted images were created and reviewed. CONTRAST MATERIAL: Noncontrast COMPARISON: CT CT RENAL COLIC WO from 08/09/2019 FINDINGS: ABDOMEN: Lung Bases: Normal where visualized. Liver: Mildly enlarged. Mild hepatic steatosis.. No measurable mass. Gallbladder and biliary tract: Status post cholecystectomy. No radiodense calculus or dilation. Pancreas: Normal density, no calcifications or inflammatory process. Spleen: Normal. Kidneys: Normal size, contour and axis. 5 x 7 millimeter stone proximal right ureter causing mild hy dronephrosis. A few additional punctate nonobstructing right renal calculi are seen. There is a 5 m illimeter nonobstructing stone near the lower pole of the left kidney. No masses seen. Adrenal glands: No masses seen. Abdominal Aorta: Abdominal portion non-dilated. PELVIS: Bladder: Symmetric distention, no gross wall thickening. No bladder calculi.. Bowel: No obstruction or bowel wall thickening. Normal appendix. Mild diverticulosis sigmoid. No diverticulitis. Peritoneal cavity: No ascites, collection or mesenteric inflammatory response. Reproductive: Unremarkable. Bones: Degenerative disc changes L5-S1. IMPRESSION: 5 x 7 millimeter stone in the proximal right ureter causing mild right hydronephrosis. Additional sm all nonobstructing stones are noted bilaterally. RADIATION DOSE DELIVERED: 1,357.54mGy.cm Total DLP DATA REPOSITORY: All CT scans at this facility are submitted to the National Radiology Data Registry (NRDR) Dose Index Registry (DIR) with the [employer] (ACR). RADIATION OPTIMIZATION: All CT scans at this facility use at least one of these dose optimization te chniques: automated exposure control; mA and/or kV adjustment per patient size (includes targeted exa ms where dose is matched to clinical indication); or iterative reconstruction.
--- NOTE | 2021-01-16 19:23 | ED.GENADUL_ITS ---
Discharge Plan Disposition Patient Disposition: HOME Condition: Stable Discharge Details Clinical Impression: Acute right flank pain, Kidney calculus Primary Care Provider: Jen Montanez ED Provider: Soila Shetty Home Meds and New Rx's Prescriptions: New tamsulosin 0.4 mg capsule 0.4 mg PO QHS 7 Days Qty: 7 RF: 0 No Action Mirena 20 mcg/24 hours (5 yrs) 52 mg intrauterine device 1 device IY ONCE RF: 0 hydrochlorothiazide 12.5 mg tablet 25 mg PO DAILY RF: 0 ondansetron HCl [Zofran] 4 mg tablet 4 mg PO Q8H Qty: 20 RF: 0 ibuprofen 800 mg tablet 800 mg PO Q8H PRN (Reason: pain) Qty: 30 RF: 0 Discharge Instructions Instructions: Kidney Stones (ED) Additional Instructions: Strain all urine. Take Ibuprofen as needed every 4-6 hours for pain. Take Vicodin for sever pain. Follow up with Urology in 3-5 days. Increase oral fluids. Return for any fever, worsening vomiting, or decreased urination. Referrals: Cammie Reynoso DNP [NURSE PRACTITIONER] - Jen Montanez [Primary Care Provider] - Discharge Data Discharge Date/Time-TO BE ENTERED AT DEPARTURE: 01/16/21 21:57 Medical Decision Making <Soila Shetty - Last Filed: 01/19/21 16:18> 35 year old female presents to ED with chief c/o of Right flank pain and vomiting which began yesterday. Denies fever or chills, Denies dysuria, no vaginal bleeding or discharge. History of kidney stones. Did not take her BP medication this am. Has been taking aleve and Icy hot with little to no relief. Has an IUD, Shx includes cholecystitis. WBC shows mild Leukocytosis, at 11.96, Urine positive large blood, negative Leuks, Neg Nitrites, Neg urine preg. FINDINGS: Liver: Normal. No mass. Gallbladder and bile ducts: The gallbladder is surgically absent. Pancreas: Normal. No ductal dilation. Spleen: Normal. No splenomegaly. Adrenal glands: Normal. No mass. Kidneys and ureters: There are several 1-2 mm right renal calculi. There is a 0.5 cm right proximal ureteral calculus with moderate right hydronephrosis. There is a 0.5 cm calculus in the left kidney. No left hydronephrosis. Stomach and bowel: Unremarkable. No obstruction. No mucosal thickening. Appendix: No evidence of appendicitis. Intraperitoneal space: Unremarkable. No free air. No significant fluid collection. Vasculature: Unremarkable. No abdominal aortic aneurysm. Lymph nodes: Unremarkable. No enlarged lymph nodes. Urinary bladder: Unremarkable as visualized. Reproductive: Unremarkable as visualized. Bones/joints: Unremarkable. No acute fracture. Soft tissues: Unremarkable. IMPRESSION: 1. Right proximal ureteral calculus 0.5 cm with moderate right hydronephrosis. 2. Multiple 1-2 mm right renal calculi, left renal calculus 0.5 cm. No left hydronephrosis. Will Send home with strainer, Tamsulosin, and follow up with Urology. Discussed CT results and home care, verbalized understanding. Patient did not require pain relief while in ED. She remained hemodynamically stable. <GURPREET Oliveros - Last Filed: 01/17/21 01:22> My name attached to the chart in error. HPI <Soila Shetty - Last Filed: 01/19/21 16:18> General Mode of arrival: ambulatory . Date/Time Provider Initiated Documentation: 01/16/21 19:13 . Limitations to Documentation: no limitations . Information obtained by: patient . HPI Narrative: 35 year old female presents to ED with chief c/o of Right flank pain and vomiting which began yesterday. De nies fever or chills, Denies dysuria, no vaginal bleeding or discharge. History of kidney stones. Did not take her BP medication this am. Has been taking aleve and Icy hot with little to no relief. Has an IUD, Shx includes cholecystitis. Related Data Home Medications Medication Instructions Recorded Confirmed levonorgestrel 20 mcg/24 hours (6 1 device IY ONCE 07/09/19 01/16/21 yrs) 52 mg intrauterine device ondansetron HCl [Zofran] 4 mg PO Q8H #20 tab 08/12/19 01/16/21 ibuprofen 800 mg PO Q8H PRN #30 tab 08/22/19 01/16/21 hydrochlorothiazide 12.5 mg tablet 25 mg PO DAILY tab 12/08/20 01/16/21 tamsulosin 0.4 mg PO QHS 7 Days #7 cap 01/16/21 Previous Rx's Medication Instructions Recorded ondansetron HCl [Zofran] 4 mg PO Q8H #20 tab 08/12/19 ibuprofen 800 mg PO Q8H PRN #30 tab 08/22/19 tamsulosin 0.4 mg PO QHS 7 Days #7 cap 01/16/21 Allergies Allergy/AdvReac Type Severity Reaction Status Date / Time No Known Drug Allergies Allergy Verified 01/16/21 19:33 General Stated Complaint: Urinary RICHARD: 3 Review of Systems <Soila Shetty - Last Filed: 01/19/21 16:18> Narrative: Right flank pain, vomiting. Constitutional Constitutional: Reports as per HPI, Denies fever(s) and Reports poor appetite Cardiovascular Cardiovascular: Denies chest pain and Denies dyspnea Respiratory Respiratory: Denies dyspnea Gastrointestinal Gastrointestinal: Denies diarrhea, Reports nausea, Reports vomiting and Denies hematemesis Genitourinary Genitourinary: Denies abnormal vaginal bleeding, Reports hematuria, Denies difficulty voiding, Denies genital lesions and Reports flank pain PFS <Soila Shetty - Last Filed: 01/19/21 16:18> Medical History ASCUS with positive high risk HPV (08/10/15) Bile leak, postoperative Body mass index (BMI) of 40.0 to 49.9 06/25/2019 Contraception (04/11/15) 06/25/2019 Depo-Provera times ~ 5 years after of youngest child. Patient counseled regarding Mirena IUD. HPV test positive Positive HPV since 2008. Negative colpo directed biopsies. 12/30/18 Neg pap/Pos HPV 06/25/2019: ECC- Hypertension (07/07/15) IUD surveillance Surgical History H/O wisdom tooth extraction S/P ERCP S/P laparoscopic cholecystectomy Family History Son Developmental delay agenesis of the corpus collosum. Severe disabilities Social History Smoking/Tobacco Use Status: Never Smoking risk assessment performed?: Yes Alcohol Intake: current Alcohol Intake frequency: holidays/special occasions only Alcohol type: other Drug use: Never Substance use type: does not use Household members: children and other Details: Not relationship. 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 Appears stated age. Normal body habitus. Head: Normocephalic, no trauma. Eyes: Pupils PERRLA, Red reflex noted, EOM's intact. Eyelids symmetrical without lesions, discharge, or swelling. ENT: Bilateral TM's WNL, External ear normal to inspection, no mastoid TTP, swelling, or erythema, Nasal turbinates WNL, no nasal discharge. Normal dentition, Posterior pharynx WNL, no exudate. Chest: RRR, Normal S1, S2, distal pulses intact. Resp: Lungs clear to auscultation bilaterally, no wheezes, rales, or rhonchi. GI/: See below Musculoskeletal: Normal gait, 5/5 strength to all four extremities. Skin: No suspicious rashes or lesions. Capillary refill less than 2 sec. Neurologic: Cranial nerves II-XII intact. Alert and oriented x 3. DTR's intact. Hematologic/Lymphatic: No ecchymosis, no lymphadenopathy. GI Inspection: obesity Palpation: soft, not firm, no guarding, no masses and tender in the RLQ Auscultation: normal bowel sounds General: CVA tenderness on the right Course <Soila Connton - [facility] Filed: 01/19/21 16:18> Vital Signs Vital signs: Vital Signs Temperature 36.5 C 01/16/21 19:09 Pulse 89 01/16/21 19:09 Respiratory Rate 16 01/16/21 19:09 Blood Pressure 222/102 H 01/16/21 19:09 Pulse Oximetry 98 01/16/21 19:09 Temperature 36.5 C 01/16/21 19:09 Temperature Source Temporal Artery Scan 01/16/21 19:09 Pulse 89 01/16/21 19:09 Respiratory Rate 16 01/16/21 19:09 Respiratory Effort 01/16/21 19:17 Blood Pressure 222/102 H 01/16/21 19:09 Blood Pressure Position Sitting 01/16/21 19:09 Pulse Oximetry 98 01/16/21 19:09 Oxygen Delivery Method Room Air 01/16/21 19:09 Oxygen Flow Rate 0 01/16/21 19:09 Pain Level 7 01/16/21 19:09
[2021-01-16] MEDS: Normal Saline 1,000 ML 125 ML IV (19:29)
[2021-01-16 19:36] LABS: Abs Immature Grans 0.06 10^3/uL (0.0-0.06); Absolute Basophil Count 0.05 10^3/uL (0.0-0.2); Absolute Eosinophil Count 0.21 10^3/uL (0.0-0.7); Absolute Lymphocyte Count 3.75 10^3/uL (1.2-3.4); Absolute Monocyte Count 0.85 10^3/uL (0.1-0.8); Absolute Neutrophil Count 6.73 10^3/uL (1.2-6.7); Basophils % 0.4; Eosinophils % 1.8; HCT 39.9 % (36.0-46.0); HGB 13.9 g/dL (11.2-15.7); Immature Grans % 0.5; Lymphocytes % 32.2; MCH 30.3 pg (27.0-33.0); MCHC 34.8 % (32.0-36.0); MCV 86.9 fL (80-95); MPV 10.3 fL (8.0-11.0); Monocytes % 7.3; Neutrophils % 57.8; Nucleated RBC 0 %; Platelet Count 229 10^3/uL (130-400); RBC 4.59 10^6/uL (3.93-5.22); RDW 12.4 % (11.7-14.6); RDW-SD 39.1 fL; WBC 11.64 10^3/uL (4.4-10.8)
[2021-01-16 19:37] LABS: Bilirubin Negative (Negative); Blood Large (Negative); Clarity Cloudy (Clear); Glucose Negative (Negative); Ketones Trace mg/dL (Negative); Leukocyte Esterase Negative (Negative); Nitrite Negative (Negative); Specific Gravity >= 1.030 (1.005-1.025); Urobilinogen 0.2 EU/dL (Up TO 0.2)
[2021-01-16 19:46] LABS: ALT 30 U/L (14-59); AST 14 U/L (15-37); Albumin 3.9 g/dL (3.4-5.0); Alkaline Phosphatase 89 U/L (46-116); Anion Gap 9.6 mmol/L (3-11); BUN 17 mg/dL (7-18); Bilirubin, Total 0.2 mg/dL (0.2-1.0); CO2 27.4 mmol/L (21.0-32.0); Calcium 8.9 mg/dL (8.5-10.1); Chloride 106 mmol/L (98-107); Glucose 113 mg/dL (74-106); Potassium 3.3 mmol/L (3.5-5.1); Sodium 143 mmol/L (136-145); Total Protein 7.4 g/dL (6.4-8.2)
[2021-01-16 19:47] LABS: C & S Indicated? No/Sq. Contamination; Epithelial Cells Many HPF (Negative); RBC >50 HPF (0-2)
--- NOTE | 2021-01-16 21:09 | DI.VRAD_ITS ---
PROCEDURE INFORMATION: Exam: CT Abdomen And Pelvis Without Contrast Exam date and time: 01/16/2021 7:24 PM Age: 35 years old Clinical indication: Abdominal pain and other: R flank; Prior surgery; Surgery date: 6+ months; Surgery type: Cholecysectomy; Patient HX: Right flank pain, vomiting TECHNIQUE: Imaging protocol: Computed tomography of the abdomen and pelvis without contrast. Total images: 1264 Radiation optimization: All CT scans at this facility use at least one of these dose optimization techniques: automated exposure control; mA and/or kV adjustment per patient size (includes targeted exams where dose is matched to clinical indication); or iterative reconstruction. COMPARISON: SD US ABDOMEN LIMITED 08/12/2019 8:16 AM FINDINGS: Liver: Normal. No mass. Gallbladder and bile ducts: The gallbladder is surgically absent. Pancreas: Normal. No ductal dilation. Spleen: Normal. No splenomegaly. Adrenal glands: Normal. No mass. Kidneys and ureters: There are several 1-2 mm right renal calculi. There is a 0.5 cm right proximal ureteral calculus with moderate right hydronephrosis. There is a 0.5 cm calculus in the left kidney. No left hydronephrosis. Stomach and bowel: Unremarkable. No obstruction. No mucosal thickening. Appendix: No evidence of appendicitis. Intraperitoneal space: Unremarkable. No free air. No significant fluid collection. Vasculature: Unremarkable. No abdominal aortic aneurysm. Lymph nodes: Unremarkable. No enlarged lymph nodes. Urinary bladder: Unremarkable as visualized. Reproductive: Unremarkable as visualized. Bones/joints: Unremarkable. No acute fracture. Soft tissues: Unremarkable. IMPRESSION: 1. Right proximal ureteral calculus 0.5 cm with moderate right hydronephrosis. 2. Multiple 1-2 mm right renal calculi, left renal calculus 0.5 cm. No left hydronephrosis. Dictated and Authenticated by: Lina Read MD. Ordering:MIREILLE Cm MD
== END 2021-01-16 21:57 | disposition home or self-care (01) ==
PROVIDERS: Emergency Provider Registered Nurse Emergency; PCP Nurse Practitioner
DX: N13.2 Hydronephrosis with renal and ureteral calculous obstruction (principal); R11.2 Nausea with vomiting, unspecified; Z87.442 Personal history of urinary calculi
CPT/HCPCS: 36415; 80053; 81025; 96361; 99284; 74176; 81003; 81015; 85025; 99283

== ENCOUNTER 2021-02-01 03:05 | Outpatient (CLI) | payer MEDICAID, SELFPAY ==
[2021-02-01 10:50] LABS: Source Nasal/Nares
[2021-02-01 14:24] LABS: COVID-19 PCR Negative (Negative)
== END 2021-02-01 03:06 | disposition home or self-care (01) ==
LOC: LBO 03:05
PROVIDERS: PCP Nurse Practitioner; Visit Provider Urology
DX: Z20.822 Contact with and (suspected) exposure to COVID-19 (principal); Z01.818 Encounter for other preprocedural examination
CPT/HCPCS: 87635

== ENCOUNTER 2021-02-06 06:16 | Day surgery (SDC) | payer MEDICAID, SELFPAY ==
[2021-02-06 06:21] VITALS: BP 160/105; PULSE 99; RESP 18; TEMP 36.2; O2SAT 97
--- NOTE | 2021-02-06 06:46 | W.ANESPRE ---
General Info Date of Service Date Performed: 02/06/21 Height: 5 ft 1.81 in Weight: 110.3 kg Body Mass Index (BMI): 44.7 Surgical Procedure: Operation Date: 02/06/21 07:40 Proposed Procedures Side Surgeon p CYSTO, RETROGRADE, RT FLEX URETEROSCOPY, HOLMIUM LASER Right Bola Collier MD Meds Allergies and Home Medications Allergies Allergy/AdvReac Type Severity Reaction Status Date / Time No Known Drug Allergies Allergy Verified 01/16/21 19:33 Home Medication Medication Instructions Recorded levonorgestrel 20 mcg/24 hours (6 1 device IY ONCE 07/09/19 yrs) 52 mg intrauterine device ibuprofen 800 mg PO Q8H PRN #30 tab 08/22/19 hydrochlorothiazide 12.5 mg tablet 25 mg PO DAILY tab 12/08/20 Current Visit Medications: Current Medications Generic Name Dose Route Start Last Admin Trade Name Freq PRN Reason Stop Dose Admin Ringer's Solution 1,000 mls @ 80 mls/hr 02/06/21 06:00 IV 03/05/21 23:59 INFUSION PEGGY Cefazolin Sodium/Dextrose 2 gm in 50 mls @ 100 mls/hr 02/06/21 06:00 Ancef Duplex IVPB 02/06/21 16:00 PREOP PEGGY IV Miscellaneous Supplies 1 each 02/06/21 06:00 Iv Access IV 03/05/21 23:59 DIRECTED PEGGY Sodium Chloride 0 ml 02/06/21 06:00 Normal Saline Flush 10 Ml Syr IV 03/05/21 23:59 PRN PRN Sodium Chloride 0 ml 02/06/21 06:00 Normal Saline 10 Ml Vial IJ 03/05/21 23:59 DIRECTED PRN Sterile Water 0 ml 02/06/21 06:00 Water,Injection,Sterile 10 Ml Vial IJ 03/05/21 23:59 DIRECTED PRN PFSH Active Problems Active Problems: Problem Status Onset Code Acute right flank pain R10.9 Kidney calculus N20.0 HPV test positive Hypertension 07/07/15 I10 IUD surveillance Z30.431 S/P ERCP Z98.890 Bile leak, postoperative K91.89, K83.8 S/P laparoscopic cholecystectomy Z90.49 Abdominal pain R10.9 Cholelithiasis K80.20 Biliary colic K80.50 Medical History Medical History ASCUS with positive high risk HPV (08/10/15) Bile leak, postoperative Body mass index (BMI) of 40.0 to 49.9 06/25/2019 Contraception (04/11/15) 06/25/2019 Depo-Provera times ~ 5 years after of youngest child. Patient counseled regarding Mirena IUD. HPV test positive Positive HPV since 2008. Negative colpo directed biopsies. 12/30/18 Neg pap/Pos HPV 06/25/2019: ECC- Hypertension (07/07/15) IUD surveillance Surgical History Surgical History H/O wisdom tooth extraction S/P ERCP S/P laparoscopic cholecystectomy Tobacco Smoking/Tobacco Use Status: Never Passive smoking exposure: No Alcohol Alcohol Intake: current Alcohol intake frequency: holidays/special occasions only Alcohol type: other Substance Use Substance use: Never Substance use type: does not use Prental History History 4 Para 3 Hx # Term Pregnancies Multiple births Hx # Pregnancies Ectopic pregnancies AB induced Hx Number of Living Children AB spontaneous Vital Signs and Lab Results Vital Signs Most Recent Vital Signs in EMR: Most Recent Vital Signs Temp Pulse Resp BP Pulse Ox 36.2 C L 99 H 18 160/105 H 97 02/06/21 06:21 02/06/21 06:21 02/06/21 06:21 02/06/21 06:21 02/06/21 06:21 Lab Results Blood Type / Crossmatch: No Data to Display Complete Blood Count: White Blood Count 11.64 10^3/uL (4.4-10.8) H 01/16/21 19:21 01/16/21 Red Blood Count 4.59 10^6/uL (3.93-5.22) 01/16/21 19:21 01/16/21 Hemoglobin 13.9 g/dL (11.2-15.7) 01/16/21 19:21 01/16/21 Hematocrit 39.9 % (36.0-46.0) 01/16/21 19:21 01/16/21 Platelet Count 229 10^3/uL (130-400) 01/16/21 19:21 01/16/21 Complete Metabolic Panel: Sodium Level 143 mmol/L (136-145) 01/16/21 19:21 01/16/21 Potassium Level 3.3 mmol/L (3.5-5.1) L 01/16/21 19:21 01/16/21 Chloride Level 106 mmol/L (98-107) 01/16/21 19:21 01/16/21 Carbon Dioxide Level 27.4 mmol/L (21.0-32.0) 01/16/21 19:21 01/16/21 Blood Urea Nitrogen 17 mg/dL (7-18) 01/16/21 19:21 01/16/21 Creatinine 1.0 mg/dL (0.55-1.02) 01/16/21 19:21 01/16/21 Estimated GFR/1.73 m2 >= 60.00 (mL/min/1.73m2) 01/16/21 19:21 01/16/21 Calcium Level 8.9 mg/dL (8.5-10.1) 01/16/21 19:21 01/16/21 Albumin 3.9 g/dL (3.4-5.0) 01/16/21 19:21 01/16/21 Glucose Level 113 mg/dL (74-106) H 01/16/21 19:21 01/16/21 Liver Function Panel: Alanine Aminotransferase (ALT/SGPT) 30 U/L (14-59) 01/16/21 19:21 01/16/21 Aspartate Amino Transf (AST/SGOT) 14 U/L (15-37) L 01/16/21 19:21 01/16/21 Coagulation Panel: No Data to Display Cardiac Panel: No Data to Display Arterial Blood Gas: No Data to Display Venous Blood Gas: No Data to Display Pancreas Panel: No Data to Display Thyroid Panel: No Data to Display Infectious Disease: Coronavirus (COVID-19)(PCR) Negative (Negative) 02/01/21 10:05 02/01/21 Coronavirus 2019 Source Nasal/Nares 02/01/21 10:05 02/01/21 Blood Cultures: No Data to Display Toxicology Panel: No Data to Display Panel: No Data to Display Anesthesia Assessment and Plan Anesthesia History Personal History: PONV Family History: No Family History of Anesthesia Complications Exercise Tolerance Exercise Tolerance: Metabolic Equivalents>4 Pertinent Negatives Pertinent Negatives: No Symptoms of GERD, No Major Cardiovascular Symptoms or Complaints, No Major Pulmonary Symptoms or Complaints and No History of CVA/TIA Cardiac & Pulmonary Exam Cardiac Exam: Normal S1/S2 Heart Sounds Pulmonary Exam: Clear Bilateral Breath Sounds Airway Exam Known Difficult Airway: No Mallampati Class: 1 Mouth Opening: Normal (> 3cm) Thyromental Distance: Greater than 3 cm Neck Range of Motion: Known Cervical Instability or radiculopathy Neck Circumference: Normal Teeth Condition: Normal Dentition ASA Classification ASA Score: ASA 2 Emergency Case?: No NPO Status NPO Status: NPO Clears >2 hours, Solids >8 hours Status Status: Negative HCG Anesthesia Plan Resuscitation Status: Full Code Anesthesia Technique: General Anesthesia Airway Planned: LMA Monitors Used: Standard Monitors
[2021-02-06 06:49] VITALS: BMI 44.7
--- NOTE | 2021-02-06 06:52 | W.PM.HP.N ---
Date of service: 02/06/21 Time of Service: 06:52 Assessment and Plan Assessment and plan (1) Kidney calculus: Status: Chronic Assessment and plan: Symptomatically, I expect her stone is still in the proximal right ureter. We will plan a cystoscopy with retrograde pyelogram to identify the location of the stone, then choose a ureteroscope (either flexible or semirigid) based on stone location. We will plan holmium laser lithotripsy, but will be prepared to place a stent and preform a staged procedure if we are unable to access the stone ureteroscopically. (2) Acute right flank pain: Status: Acute History of Present Illness History of Present Illness Chief Complaint: Right ureteral stone Narrative: This is a 35-year-old woman complaint: who has a history of kidney stones. She has never required surgery for stones. She has never caught a stone to have it analyzed. She presented to the emergency room 1 week ago with right flank and abdominal pain. The pain was associated with nausea and vomiting. She did not have gross hematuria, fever or chills. As part of her evaluation, a CT scan was done. She had an obstructing proximal right ureteral stone with bilateral nonobstructing kidney stones. She was discharged with alpha blockers and analgesics. Over the past few weeks, her pain has been controlled with medications, but if she stops taking the medication, the pain comes back. She has not noticed that the pain is migrated further down the abdomen. She is not having any pain in the groin or frequency of urination. She has not passed her stone as far she is aware. She has no known history of gout or hyperparathyroid disease. She recalls at least 2 previous episodes of renal colic. Review of Systems Narrative: No fevers or chills No vision change or dysphasia No diabetes or thyroid dysfunction No shortness of breath, cough or hemoptysis No chest pain or palpitations Occasional reflux. No hepatitis, ulcers, jaundice No seizures, strokes or peripheral neuropathy No bleeding disorders or anemia No gout [facility] Medical History ASCUS with positive high risk HPV (08/10/15) Bile leak, postoperative Body mass index (BMI) of 40.0 to 49.9 06/25/2019 Contraception (04/11/15) 06/25/2019 Depo-Provera times ~ 5 years after of youngest child. Patient counseled regarding Mirena IUD. HPV test positive Positive HPV since 2008. Negative colpo directed biopsies. 12/30/18 Neg pap/Pos HPV 06/25/2019: ECC- Hypertension (07/07/15) IUD surveillance Surgical History H/O wisdom tooth extraction S/P ERCP S/P laparoscopic cholecystectomy Family History Son Developmental delay agenesis of the corpus collosum. Severe disabilities Social History Smoking/Tobacco Use Status: Never Smoking risk assessment performed?: Yes Alcohol Intake: current Alcohol Intake frequency: holidays/special occasions only Alcohol type: other Drug use: Never Substance use type: does not use Household members: children and other Details: Not relationship. 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 Sexually active: No (Not in relationship) Do you feel safe at home: Yes Do you feel safe in your relationship?: Yes Female Reproductive History Menstrual control method: progesterone injection History History 4 Para 3 Hx # Term Pregnancies Multiple births Hx # Pregnancies Ectopic pregnancies AB induced Hx Number of Living Children AB spontaneous Meds Allergies and Home Medications Allergies Allergy/AdvReac Type Severity Reaction Status Date / Time No Known Drug Allergies Allergy Verified 01/16/21 19:33 Home Medications Medication Instructions Recorded Confirmed Type levonorgestrel 20 mcg/24 hours (6 1 device IY ONCE 07/09/19 01/23/21 History yrs) 52 mg intrauterine device ibuprofen 800 mg PO Q8H PRN #30 tab 08/22/19 02/03/21 Rx hydrochlorothiazide 12.5 mg tablet 25 mg PO DAILY tab 12/08/20 02/03/21 History Exam Const General: cooperative Nutritional Appearance: obese Neck Neck: supple Resp Effort & Inspection: normal respiratory effort Auscultation: clear to auscultation bilaterally Cardio Rate: regular rate Rhythm: regular rhythm GI Palpation: soft and no masses Neuro General: patient alert, patient awake and patient oriented x3 Results Last Vital Signs Temp 36.2 C L 02/06/21 06:21 Pulse 99 H 02/06/21 06:21 Resp 18 02/06/21 06:21 BP 160/105 H 02/06/21 06:21 Pulse Ox 97 02/06/21 06:21
[2021-02-06] MEDS: Lactated Ringers 1,000 ML 80 ML IV (06:55)
[2021-02-06] MEDS: ceFAZolin 2 GM/50 ML BAG IVPB (07:44)
[2021-02-06] MEDS: Lidocaine 2% Jelly 6 ML SYR (08:00)
[2021-02-06] MEDS: Omnipaque 300 MG/ML 50 ML BTL (08:00)
--- NOTE | 2021-02-06 08:04 | DI.RAD_ITS ---
Exam(s) XR RETROGRADE IN OR EXAM: XR RETROGRADE IN OR CLINICAL HISTORY: retrograde. TECHNIQUE: 2D digital imaging was performed. COMPARISON: CT CT RENAL COLIC WO from 01/16/[address] RENAL COLIC WO from 01/16/2021 FINDINGS: Ramirez appears danica it during right ureteral retrograde study performed by the urologist. See procedure report for details. IMPRESSION: Total fluoroscopy time 39.5 seconds Total clipped of dose 17.52mGy DATA REPOSITORY: RADIATION DOSE DELIVERED:
--- NOTE | 2021-02-06 08:07 | ROE_ITS ---
Date of service: 02/06/21 Time of Service: 08:07 Operative Note Operative Note DATE OF PROCEDURE: 02/06/21 PRE-OP DIAGNOSIS: Right ureteral stone POST-OP DIAGNOSIS: same right kidney stone PROCEDURE: Cystoscopy, right retrograde pyelogram, right flexible ureteroscopy with stone extraction SURGEON: Bola Collier ANESTHESIA TYPE: Local By Surgeon and General:No Airway Refer to Anesthesia Record ESTIMATED BLOOD LOSS: 5 COMPLICATIONS: Other (stones for chemical analysis) Patient was transported to: same day Patient's condition: stable Implants: None Indications: This is a 35-year-old woman who history of bilateral kidney stones. She presented with right renal colic found to have a right proximal ureteral stone. She did not pass her stone with conservative management. As for stone manipulation Findings: Ureteral stone bumped back up into kidney during retrograde pyelogram Procedure Description: Patient was brought to the operating room on 02/06/2021. After successful induction of general anesthesia, she was placed in the dorsal lithotomy position. She was given preoperative IV antibiotics. Her genitalia and perineum were prepped and draped. 2% Xylocaine jelly was instilled into the urethra to act as a local anesthetic. A 22 Occitan rigid cystoscope was passed through the urethra into the bladder. The bladder was inspected using a 30 degree lens. Both ureteral orifices appeared normal. No blood was seen coming from either side. No stones were visualized within the bladder. The right ureteral orifice was cannulated with a 6 Occitan access catheter. Retrograde pyelogram was obtained by injecting Omnipaque through the access catheter under fluoroscopic guidance. No filling defects were seen along the course of the ureter making it likely that the stone had been bumped back up into the kidney. I then passed a guidewire through the access catheter and maneuvered the wire until the proximal end was seen in the upper pole calyx. The access catheter and cystoscope were removed. A dual-lumen catheter was then passed over the wire. A second wire was then positioned. The dual-lumen catheter was removed. We chose one of the wires as a working wire and the second is a safety wire. Ureteral access sheath was advanced over the working wire, and the working wire was removed. The flexible ureteroscope was then passed through the access sheath up the remainder of the ureter and into the renal pelvis. Each of the calyces were inspected. Into the lower pole calyces, free-floating stones were identified. The stones were grasped in a 0 tip stone basket and removed in their entirety. Each of the stones were sent to pathology for chemical analysis. We elected not to place a ureteral stent. There is no evidence of ureteral injury during the procedure. The safety wire and ureteral access sheath were removed as was the ureteroscope. She tolerated this procedure well with no complications. She was taken back to the day surgery unit in stable condition.
--- NOTE | 2021-02-06 08:12 | PDOC.DSDIS_ITS ---
Discharge Plan Disposition Patient Disposition: HOME Condition: Stable Discharge Details Admit Date/Time: 02/06/21 06:16 Admit Provider: Bola Collier Attending Provider: Bola Collier Primary Care Provider: Jen Montanez Hospital Course Hospital Course: We had reserved an ovservation bed for the patient as she has had significant nausea and vomiting requiring hospitalization after previous surgical procedures. When she awoke from this procedure/anesthetic, she felt well with n o nausea or vomiting. She was able to tolerate oral medications, so admission was not required. Home Meds and New Rx's Prescriptions: New ondansetron 8 mg tablet,disintegrating 8 mg PO Q8H PRNQty: 10 RF: 0 No Action Mirena 20 mcg/24 hours (5 yrs) 52 mg intrauterine device 1 device IY ONCE RF: 0 hydrochlorothiazide 12.5 mg tablet 25 mg PO DAILY RF: 0 ibuprofen 800 mg tablet 800 mg PO Q8H PRN (Reason: pain) Qty: 30 RF: 0 Discharge Instructions Additional Instructions: followup 4 to 6 weeks with renal US Activity:: Activity as Tolerated Equipment/Supplies:: No Equipment Needed Diet:: As Tolerated Discharge Orders Discharge Orders: Discharge Order (Routine); Ordered 02/06/21 Ordered By: Bola Collier DS: Diagnosis Discharge Diagnosis (1) Kidney calculus: Status: Chronic (2) Acute right flank pain: Status: Acute
--- NOTE | 2021-02-06 08:21 | W.ANESPOSTOP ---
Postoperative Evaluation Date, Time and Location Date Performed: 02/06/21 Time Performed: 08:22 Patient Location: Day Surgery Unit Vital Signs Most Recent Imported Vital Signs: Most Recent Vital Signs Temp Pulse Resp BP Pulse Ox 36.2 C L 99 H 18 160/105 H 97 02/06/21 06:21 02/06/21 06:21 02/06/21 06:21 02/06/21 06:21 02/06/21 06:21 Most Recent Manually Entered Vital Signs: Adult Blood Pressure: 140/100 Heart Rate: 97 Respirations: 16 Oxygen Saturation (%): 97 Temperature (C): 36.1 C Pain Score (0-10 Scale): 2 Pain Score Most Recent Pain Score: Most Recent Pain Score Pain Level 0 02/06/21 06:21 Assessment Mental Status: Arousable with meaningful communication Airway and Respiratory Function: Patent airway with normal (patient baseline) respiratory exam Cardiovascular Function: Hemodynamically Stable Hydration Status: Adequately Hydrated Nausea & Vomiting: No Nausea or Vomiting Pain: Pain is tolerable per patient Peripheral Nerve Block: Patient did not receive a nerve block
[2021-02-06 08:22] VITALS: BP 140/100; PULSE 97; RESP 16; TEMPC 36.1; O2SAT 97
[2021-02-06] MEDS: Phenazopyridine 200 MG TAB PO (08:23)
[2021-02-06 08:25] VITALS: PULSE 85; RESP 16; TEMP 36.1; O2SAT 96
[2021-02-06 08:29] VITALS: BP 140/90; PULSE 85; RESP 16; TEMP 36.3; O2SAT 99
[2021-02-10 10:11] LABS: Source: Right Ureter
== END 2021-02-06 09:25 | disposition home or self-care (01) ==
LOC: PDS 08:15 → SUR 02-07 07:40
PROVIDERS: PCP Nurse Practitioner; Visit Provider Urology
PROC: (CPT 52352; principal; 2021-02-06 07:30)
DX: N20.0 Calculus of kidney (principal); I10 Essential (primary) hypertension
CPT/HCPCS: 52352; 74420; 82365; J0690; J1100; J1885; J2001; J2405; Q9967

== ENCOUNTER 2021-02-20 14:15 | Outpatient (REF) | payer MEDICAID, SELFPAY ==
--- NOTE | 2021-02-20 13:15 | CER_PTH ---
PATIENT: Shania Goff LOC: [facility] U#:[id number] AGE/SX: 36/F ROOM: RE02/20/[address]: Isabelle Barrera : 1985 BED: DIS: 02/20/2021 SPEC #: [id number] RECD: 02/20/21 17:12 STATUS: EMILI RELili #: [id number] PAOLA: 02/20/21 13:[address]: Isabelle Barrera DEPT: Surgical Specimen RECD BY: Claudia Phelan ENTERED: 02/20/21 17:14 SP TYPE: CER BOLIVAR DR: Jen Montanez Tissues: 1 - CERVICAL BIOPSY 2 - ENDOCERVICAL BX/CURRETTE 3 - CERVICAL BIOPSY Procedures: GROSS AND MICRO LEVEL 4 Comments: [id number]
== END 2021-02-20 14:16 | disposition home or self-care (01) ==
LOC: LBN 14:15
PROVIDERS: PCP Nurse Practitioner; Visit Provider Obstetrics & Gynecology Gynecology
DX: N72 Inflammatory disease of cervix uteri (principal); R87.610 Atypical squamous cells of undetermined significance on cytologic smear of cervix (ASC-US); R87.810 Cervical high risk human papillomavirus (HPV) DNA test positive
CPT/HCPCS: 88305

== ENCOUNTER 2021-03-10 03:49 | Outpatient (CLI) | payer MEDICAID, SELFPAY ==
--- NOTE | 2021-03-10 07:00 | DI.US_ITS ---
Exam(s) US RENAL EXAM: US RENAL CLINICAL HISTORY: r/o hydronephrosis,CALCULUS PROXIMAL RT URETER, N20.1 TECHNIQUE: Ultrasound performed using standard protocol. COMPARISON: US US ABDOMEN LIMITED from 08/12/2019 FINDINGS: Renal ultrasound was performed according to the usual protocol. Right kidney measures 11.0 x 5.3 x 5 .4 cm and left kidney measures 11.5 x 5.4 x 5 point cm. There is no evidence of hydronephrosis, neph rolithiasis, or a solid renal mass. Urinary bladder is grossly unremarkable and contains 52 cc of urine. Patient was unable to void. Ureteral jets were noted bilaterally. IMPRESSION: Negative renal ultrasound. DATA REPOSITORY:
== END 2021-03-10 04:09 ==
PROVIDERS: PCP Nurse Practitioner; Visit Provider Urology
DX: N20.1 Calculus of ureter (principal)
CPT/HCPCS: 76770

== ENCOUNTER 2021-04-06 14:50 | Outpatient (REF) | payer MEDICAID, SELFPAY ==
[2021-04-08 17:01] LABS: COVID-19 RT-PCR UVMMC Result Negative (Negative)
== END 2021-04-06 14:51 | disposition home or self-care (01) ==
LOC: LBN 14:50
PROVIDERS: PCP Nurse Practitioner; Visit Provider Nurse Practitioner Pediatrics
DX: Z20.822 Contact with and (suspected) exposure to COVID-19 (principal)
CPT/HCPCS: U0003

== ENCOUNTER 2021-06-07 13:32 | Outpatient (REF) | payer MEDICAID, SELFPAY ==
[2021-06-09 11:52] LABS: COVID-19 RT-PCR UVMMC Result Negative (Negative)
== END 2021-06-07 13:33 | disposition home or self-care (01) ==
LOC: LBN 13:32
PROVIDERS: PCP Nurse Practitioner; Visit Provider Family Medicine
DX: Z20.822 Contact with and (suspected) exposure to COVID-19 (principal); J02.9 Acute pharyngitis, unspecified
CPT/HCPCS: U0003

== ENCOUNTER 2022-01-04 09:46 | Outpatient (REF) | payer MEDICAID, SELFPAY ==
--- NOTE | 2022-01-04 09:30 | PAPFT_PTH ---
PATIENT: Shania Goff LOC: [facility] U#:[id number] AGE/SX: 36/F ROOM: RE01/04/[address]: MILTON Sauer : 1985 BED: DIS: 01/04/2022 SPEC #: [id number] RECD: 01/04/22 13:06 STATUS: EMILI REQ #: [id number] PAOLA: 01/04/22 09:[address]: Evon Dean DEPT: [facility] Cytology RECD BY: Claudia Phelan ENTERED: 01/04/22 13:06 SP TYPE: PAPFT OTHR DR: Jen Montanez Tissues: 1 - CX/ENDOCX FOR PAP SMEARS Procedures: PAP THIN PREP/[facility] Screening HPV DNA PROBE Comments: [id number]
[2022-01-05 15:15] LABS: Chlamydia Result Negative (Negative); GC Result Negative (Negative)
== END 2022-01-04 09:47 | disposition home or self-care (01) ==
LOC: LBN 09:46
PROVIDERS: PCP Nurse Practitioner; Visit Provider Nurse Practitioner Family
DX: Z11.3 Encounter for screening for infections with a predominantly sexual mode of transmission (principal); Z12.4 Encounter for screening for malignant neoplasm of cervix; R87.610 Atypical squamous cells of undetermined significance on cytologic smear of cervix (ASC-US); Z11.51 Encounter for screening for human papillomavirus (HPV); R87.810 Cervical high risk human papillomavirus (HPV) DNA test positive
CPT/HCPCS: 87491; 87591; 88142; 87624

== ENCOUNTER 2022-04-02 13:10 | Outpatient (REF) | payer MEDICAID, SELFPAY ==
[2022-04-02 15:18] LABS: Abs Immature Grans 0.02 10^3/uL (0.0-0.06); Absolute Basophil Count 0.04 10^3/uL (0.0-0.2); Absolute Eosinophil Count 0.13 10^3/uL (0.0-0.7); Absolute Lymphocyte Count 2.52 10^3/uL (1.2-3.4); Absolute Monocyte Count 0.45 10^3/uL (0.1-0.8); Absolute Neutrophil Count 4.47 10^3/uL (1.2-6.7); Basophils % 0.5; Eosinophils % 1.7; HCT 39.1 % (36.0-46.0); HGB 13.8 g/dL (11.2-15.7); Immature Grans % 0.3; MCH 30.7 pg (27.0-33.0); MCHC 35.3 % (32.0-36.0); MCV 87 fL (80-95); MPV 11.2 fL (8.0-11.0); Monocytes % 5.9; Neutrophils % 58.6; Platelet Count 237 10^3/uL (130-400); RBC 4.49 10^6/uL (3.93-5.22); RDW 12.5 % (11.7-14.6); RDW-SD 39.6 fL; WBC 7.63 10^3/uL (4.4-10.8)
[2022-04-02 15:56] LABS: ALT 34 U/L (14-59); AST 16 U/L (15-37); Albumin 3.7 g/dL (3.4-5.0); Alkaline Phosphatase 79 U/L (46-116); BUN 16 mg/dL (7-18); Bilirubin, Total 0.4 mg/dL (0.2-1.0); CREATININE 0.9 mg/dL (0.55-1.02); Calculated LDL 95 mg/dL (<100); Chloride 104 mmol/L (98-107); Cholesterol 183 mg/dL (<200); Estimated GFR 83.92 (mL/min/1.73m2); Glucose 97 mg/dL (74-106); HDL Cholesterol 48 mg/dL (40-60); Potassium 3.7 mmol/L (3.5-5.1); Sodium 142 mmol/L (136-145); Total Protein 7.3 g/dL (6.4-8.2); Triglyceride 202 mg/dL (<150)
== END 2022-04-02 13:11 | disposition home or self-care (01) ==
LOC: NCHCN 13:10
PROVIDERS: PCP Nurse Practitioner; Visit Provider Nurse Practitioner Family
DX: Z00.00 Encounter for general adult medical examination without abnormal findings (principal); Z13.220 Encounter for screening for lipoid disorders; F32.A Depression, unspecified; I10 Essential (primary) hypertension; E66.9 Obesity, unspecified
CPT/HCPCS: 80053; 80061; 85025

== ENCOUNTER 2022-07-06 16:11 | Outpatient (REF) | payer MEDICAID, SELFPAY ==
[2022-07-08 11:55] LABS: COVID-19 RT-PCR UVMMC Result Negative (Negative)
== END 2022-07-06 16:12 | disposition home or self-care (01) ==
LOC: LBN 16:11
PROVIDERS: PCP Nurse Practitioner; Visit Provider Physician Assistant Medical
DX: Z20.822 Contact with and (suspected) exposure to COVID-19 (principal); J02.9 Acute pharyngitis, unspecified
CPT/HCPCS: U0003; 87081

== ENCOUNTER 2022-10-24 02:07 | Outpatient (CLI) | payer MEDICAID, SELFPAY ==
--- NOTE | 2022-10-24 06:45 | DI.US_ITS ---
Exam(s) US RENAL EXAM: US RENAL CLINICAL HISTORY: left flank pain w/ hx of renal calculi,n20.0,r10.9. TECHNIQUE: Patel scale, color and spectral Doppler were used. COMPARISON: CT CT RENAL COLIC WO from 01/16/2021 US US RENAL from 03/10/2021 FINDINGS: Renal size in cm: Right: 11.1. Left: 11.7. Echogenicity: Normal. Hydronephrosis: No right hydronephrosis. Mild left hydronephrosis. Cyst or mass: No. Nephrolithiasis: No. Other findings: None. Bladder:Normal. Ureteral jets: Right: Visualized and unremarkable. Left: Visualized and unremarkable. Prevoid vol:112 cc Postvoid vol:4 cc Renal color flow: Symmetric and within normal limits. IMPRESSION: 1. No nephrolithiasis. Small stones may not be visualized sonographically. 2. Mild left hydronephrosis. DATA REPOSITORY:
== END 2022-10-24 02:27 ==
LOC: DI 02:07
PROVIDERS: PCP Nurse Practitioner Family; Visit Provider Nurse Practitioner Gerontology
DX: N20.0 Calculus of kidney (principal); R10.9 Unspecified abdominal pain
CPT/HCPCS: 76770

== ENCOUNTER 2022-11-06 23:55 | Emergency (ER) | payer MEDICAID, SELFPAY ==
[2022-11-07] VITALS (17 sets, daily range): BP systolic 149–178; BP diastolic 94–105; PULSE 109–125; RESP 17–39; TEMP 36.9; O2SAT 91–97
--- NOTE | 2022-11-07 00:22 | W.ED.GENAD ---
Discharge Plan Disposition Patient Disposition: Home Discharge Details Clinical Impression: , Abdominal cramping, Hypomagnesemia, Hypokalemia, UTI (urinary tract infection) Primary Care Provider: JASON MOHAMUD ED Provider: Iam Hobbs Home Meds and New Rx's Prescriptions: New cephalexin 500 mg tablet 500 mg PO QID Qty: 20 0RF ondansetron 4 mg tablet,disintegrating 4 mg PO Q8H PRN (Reason: nausea and vomiting) Qty: 30 0RF potassium chloride 20 mEq tablet extended release 20 meq PO BID Qty: 20 0RF Continued Mirena 20 mcg/24 hours (5 yrs) 52 mg intrauterine device 1 device IY ONCE hydrochlorothiazide 12.5 mg tablet 25 mg PO DAILY acetaminophen [Tylenol] 325 mg capsule 325 mg PO ONCE PRN Discontinued ibuprofen 800 mg tablet 800 mg PO Q8H PRN (Reason: pain) Qty: 30 0RF Discharge Instructions Instructions: Hypokalemia (ED), Hypomagnesemia (ED) Additional Instructions: Follow up as scheduled with your obgyn and primary care provider next week you should have your potassium level rechecked, discuss this when you follow up if you develop severe pain, persistent vaginal bleeding, fevers or feel more ill return to the emergency department Medical Decision Making 37 yo female with hx of htn, who had a positive test last and lmp was at the end of September, she is not sure of exact date, who comes in with pelvic cramping and dysuria for a day. Denies fevers, chills, sharp or severe abdominal pain, no vaginal bleeding. She arrives stable though is hypertensive. She has no abdominal tenderness, no cva tenderness and appears well. Suspect cramping due to and possible cystitis, will check ua, cbc, cmp, lipase and reassess. No vaginal bleeding or severe abdominal pain so doubt ectopic at this time. pt stable, K and mag low, ua pending, pt feels improved, no longer having cramping or any abdominal discomfort. Wbc is 18 but has no fevers, no chills no other symptoms to suggest pyelo ua suspicious for uti, no fevers, still no cva tenderness and no cramping anymore. Will treat with dose of ceftriaxone and start on cephalexin. BP now 140/82 on my exam. She is taking oral mag and potassium and was given IV supplementation as well with no significant change in her mag or K levels. Given she can take oral feel she can start oral supplementation. She is requesting d/c and feel this is reasonable. She has f/u with obgyn and pcp next week and return precautions given pt requested a prescription for something for nausea which has been an issue even before , will provide script for zofran prn. Differential Diagnosis Differential Diagnosis: , uti, cystitis HPI General Mode of arrival: ambulatory. Date/Time Provider Initiated Documentation: 11/06/22 23:58. Limitations to Documentation: no limitations. Information obtained by: patient. History of Present Illness 37 year old F presents to the emergency department with the chief complaint of pelvic cramping, described as mild, Patient started experiencing this day(s) (1) and it has been constant. No relieving factors improve symptom(s), No exacerbating factors reported . Patient notes denies chest pain and shortness of breath. Patient did receive the following treatments prior to arrival, none Related Data Home Medications Medication Instructions Recorded Confirmed levonorgestrel 21 mcg/24 hours (8 1 device intrauterine ONCE 07/09/19 03/13/21 yrs) 52 mg intrauterine device (Mirena) hydrochlorothiazide 12.5 mg tablet 25 mg PO DAILY 12/08/20 03/13/21 acetaminophen 325 mg capsule 325 mg PO ONCE PRN 01/04/22 (Tylenol) cephalexin 500 mg tablet 500 mg PO QID #20 tabs 11/07/22 ondansetron 4 mg disintegrating 4 mg PO Q8H PRN nausea and 11/07/22 tablet vomiting #30 tabs potassium chloride 20 mEq 20 meq PO BID #20 tabs 11/07/22 tablet,extended release Previous Rx's Medication Instructions Recorded cephalexin 500 mg tablet 500 mg PO QID #20 tabs 11/07/22 ondansetron 4 mg disintegrating 4 mg PO Q8H PRN nausea and 11/07/22 tablet vomiting #30 tabs potassium chloride 20 mEq 20 meq PO BID #20 tabs 11/07/22 tablet,extended release Allergies Allergy/AdvReac Type Severity Reaction Status Date / Time No Known Drug Allergies Allergy Verified 01/04/22 09:08 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 Review of Systems All systems reviewed & are unremarkable except as noted in HPI and below Constitutional Constitutional: Denies chills, Denies fever(s) and Denies weakness Cardiovascular Cardiovascular: Denies chest pain and Denies dyspnea Respiratory Respiratory: Denies cough and Denies dyspnea Gastrointestinal Gastrointestinal: Denies nausea and Denies vomiting Musculoskeletal Musculoskeletal: Denies joint swelling Integumentary/Breasts Skin/Breast: Denies rash Neurologic Neurologic: Denies weakness PFSH All Active Problems (Updated 11/07/22 @ 04:13 by Iam Hobbs MD) (Acute) Abdominal cramping (Acute) Hypomagnesemia (Acute) Hypokalemia (Acute) UTI (urinary tract infection) (Acute) Acute right flank pain (Acute) Kidney calculus (Chronic) HPV test positive (Acute) Positive HPV since 2008. Negative colpo directed biopsies. 12/30/18 Neg pap/Pos HPV 06/25/2019: ECC- Hypertension (Acute 07/07/15) IUD surveillance (Acute) S/P ERCP (Acute) Bile leak, postoperative (Acute) S/P laparoscopic cholecystectomy (Acute) Abdominal pain (Acute) Cholelithiasis (Acute) Biliary colic (Acute) Medical History ASCUS with positive high risk HPV (08/10/15) Bile leak, postoperative Body mass index (BMI) of 40.0 to 49.9 06/25/2019 Contraception (04/11/15) 06/25/2019 Depo-Provera times ~ 5 years after of youngest child. Patient counseled regarding Mirena IUD. HPV test positive Positive HPV since 2008. Negative colpo directed biopsies. 12/30/18 Neg pap/Pos HPV 06/25/2019: ECC- Hypertension (07/07/15) IUD surveillance Surgical History H/O wisdom tooth extraction S/P ERCP S/P laparoscopic cholecystectomy Family History Son Developmental delay agenesis of the corpus collosum. Severe disabilities Social History (Updated 02/20/21 @ 14:01 by Isabelle Barrera MD) Smoking/Tobacco Use Status: Never Smoking risk assessment performed?: Yes Alcohol Intake: current Alcohol Intake frequency: holidays/special occasions only Alcohol type: other Drug use: Never Substance use type: does not use Household members: children and other Details: Not relationship. 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 Sexually active: No (Not in relationship) Do you feel safe at home: Yes Do you feel safe in your relationship?: Yes Female Reproductive History Menstrual control method: progesterone injection History History 4 Para 3 Hx # Term Pregnancies Multiple births Hx # Pregnancies Ectopic pregnancies AB induced Hx Number of Living Children AB spontaneous Exam Const General: no acute distress Orientation: alert HENMT Head: normal to inspection Ears: external ears normal General nose exam: external nose normal Mouth: moist mucous membranes Eyes General: appearance normal, both eyes and all related structures Neck Neck: normal visual inspection Resp Effort & Inspection: normal respiratory effort and able to speak in complete sentences Cardio Rate: regular rate GI Palpation: soft and nontender Skin General skin exam: no rashes or lesions noted Neuro General: patient alert and patient oriented x3 Extrem General: normal to inspection Psych Mental Status: mental status grossly normal Course Vital Signs Vital signs: Vital Signs Temperature 36.9 C 11/07/22 00:04 Pulse 125 H 11/07/22 00:04 Respiratory Rate 20 11/07/22 00:04 Blood Pressure 178/104 H 11/07/22 00:04 Pulse Oximetry 97 11/07/22 00:04 Temperature 36.9 C 11/07/22 00:04 Temperature Source Oral 11/07/22 00:04 Pulse 125 H 11/07/22 00:04 Respiratory Rate 20 11/07/22 00:04 Blood Pressure 178/104 H 11/07/22 00:04 Blood Pressure Position Sitting 11/07/22 00:04 Pulse Oximetry 97 11/07/22 00:04 Oxygen Delivery Method Room Air 11/07/22 00:04 Oxygen Flow Rate 0 11/07/22 00:04 Pain Level 7 11/07/22 00:09
[2022-11-07] MEDS: Normal Saline 1,000 ML 1000 ML IV (00:43)
[2022-11-07 00:44] LABS: Abs Immature Grans 0.07 10^3/uL (0.0-0.06); Absolute Basophil Count 0.04 10^3/uL (0.0-0.2); Absolute Eosinophil Count 0.04 10^3/uL (0.0-0.7); Absolute Lymphocyte Count 2.34 10^3/uL (1.2-3.4); Absolute Monocyte Count 1.02 10^3/uL (0.1-0.8); Absolute Neutrophil Count 14.76 10^3/uL (1.2-6.7); Basophils % 0.2; Eosinophils % 0.2; HCT 34.5 % (36.0-46.0); HGB 12.2 g/dL (11.2-15.7); Immature Grans % 0.4; Lymphocytes % 12.8; MCH 30.4 pg (27.0-33.0); MCHC 35.4 % (32.0-36.0); MCV 86 fL (80-95); MPV 9.6 fL (8.0-11.0); Monocytes % 5.6; Neutrophils % 80.8; Platelet Count 256 10^3/uL (130-400); RBC 4.01 10^6/uL (3.93-5.22); RDW 13.4 % (11.7-14.6); WBC 18.27 10^3/uL (4.4-10.8)
[2022-11-07 00:59] LABS: HCG Qual (Serum) Positive
[2022-11-07 01:08] LABS: ALT 36 U/L (14-59); AST 25 U/L (15-37); Albumin 3.6 g/dL (3.4-5.0); Alkaline Phosphatase 76 U/L (46-116); Anion Gap 10.3 mmol/L (3-11); Bilirubin, Total 0.5 mg/dL (0.2-1.0); CO2 26.7 mmol/L (21.0-32.0); CREATININE 1.1 mg/dL (0.55-1.02); Calcium 9.1 mg/dL (8.5-10.1); Chloride 103 mmol/L (98-107); Estimated GFR 65.96 (mL/min/1.73m2); Glucose 127 mg/dL (74-106); Lipase 40 U/L (16-77); Magnesium 1.3 mg/dL (1.8-2.4); Sodium 140 mmol/L (136-145); TSH (W/Ref FT4) 1.98 uIU/mL (0.36-3.74); Total Protein 7.1 g/dL (6.4-8.2)
[2022-11-07 01:23] LABS: BUN 16 mg/dL (7-18)
[2022-11-07 01:25] LABS: Potassium 2.9 mmol/L (3.5-5.1)
[2022-11-07 01:44] LABS: HCG Quant, Pregnancy 4789 mIU/mL (1-3)
[2022-11-07 01:46] LABS: Clarity Sl Cloudy (Clear); Specific Gravity 1.015 (1.005-1.025)
[2022-11-07 01:51] LABS: Bacteria Moderate HPF (Negative); C & S Indicated? No/Sq. Contamination; Crystals Negative HPF (Negative); Epithelial Cells Moderate HPF (Negative); Mucus Negative (Negative); WBC >50 HPF (0-5)
[2022-11-07] MEDS: Potassium Chloride 20 MEQ TABCR 40 MEQ PO (02:04)
[2022-11-07] MEDS: Magnesium Oxide 400 MG TAB 800 MG PO (02:04)
[2022-11-07] MEDS: MAGNESIUM SULFATE 1 GM/100 ML BAG IVPB (02:05)
[2022-11-07] MEDS: POTASSIUM CHLORIDE 10 MEQ/100 ML BAG 100 MEQ IVPB (02:06)
[2022-11-07 03:07] LABS: Anion Gap 11.6 mmol/L (3-11); BUN 13 mg/dL (7-18); CO2 25.4 mmol/L (21.0-32.0); CREATININE 1.1 mg/dL (0.55-1.02); Chloride 103 mmol/L (98-107); Estimated GFR 65.96 (mL/min/1.73m2); Glucose 143 mg/dL (74-106); Magnesium 1.5 mg/dL (1.8-2.4); Sodium 140 mmol/L (136-145)
[2022-11-07 03:15] LABS: Potassium 2.8 mmol/L (3.5-5.1)
[2022-11-07] MEDS: cefTRIAXone 2 GM/50 ML BAG IVPB (03:17)
[2022-11-07 03:45] LABS: CREATININE 1.1 mg/dL (0.55-1.02); Calcium 8.1 mg/dL (8.5-10.1); Chloride 106 mmol/L (98-107); Estimated GFR 65.96 (mL/min/1.73m2); Glucose 141 mg/dL (74-106); Magnesium 1.6 mg/dL (1.8-2.4); Sodium 140 mmol/L (136-145)
[2022-11-07 04:03] LABS: Potassium 2.8 mmol/L (3.5-5.1)
[2022-11-07 04:18] LABS: BUN 12 mg/dL (7-18)
== END 2022-11-07 04:26 | disposition home or self-care (01) ==
PROVIDERS: Emergency Provider Emergency Medicine; PCP Nurse Practitioner Family
DX: O99.281 Endocrine, nutritional and metabolic diseases complicating pregnancy, first trimester (principal); O23.41 Unspecified infection of urinary tract in pregnancy, first trimester; N39.0 Urinary tract infection, site not specified
CPT/HCPCS: 80048; 80053; 83690; 96361; 96365; 96367; 96368; 99284; 81003; 81015; 83735; 84443; 84702; 84703; 85025; J3475; J3480

== ENCOUNTER 2022-11-27 02:46 | Outpatient (CLI) | payer MEDICAID, SELFPAY ==
[2022-11-27 09:20] LABS: HCT 36.2 % (36.0-46.0); HGB 12.5 g/dL (11.2-15.7); MCH 30.2 pg (27.0-33.0); MCHC 34.5 % (32.0-36.0); MCV 87 fL (80-95); MPV 9.9 fL (8.0-11.0); Platelet Count 276 10^3/uL (130-400); RBC 4.14 10^6/uL (3.93-5.22); RDW 13.4 % (11.7-14.6); RDW-SD 42.2 fL; WBC 11.32 10^3/uL (4.4-10.8)
[2022-11-27 10:28] LABS: ALT 19 U/L (14-59); AST 13 U/L (15-37); Albumin 3.2 g/dL (3.4-5.0); Alkaline Phosphatase 81 U/L (46-116); BUN 9 mg/dL (7-18); Bilirubin, Total 0.3 mg/dL (0.2-1.0); CREATININE 0.9 mg/dL (0.55-1.02); Calcium 8.4 mg/dL (8.5-10.1); Chloride 102 mmol/L (98-107); Estimated GFR 83.92 (mL/min/1.73m2); Glucose 122 mg/dL (74-106); LDH 184 U/L (81-234); Potassium 3.1 mmol/L (3.5-5.1); Sodium 138 mmol/L (136-145); Total Protein 7.1 g/dL (6.4-8.2)
== END 2022-11-27 02:47 | disposition home or self-care (01) ==
LOC: LBO 02:46
PROVIDERS: PCP Nurse Practitioner Family; Visit Provider Advanced Practice Midwife
DX: O10.011 Pre-existing essential hypertension complicating pregnancy, first trimester (principal); Z34.90 Encounter for supervision of normal pregnancy, unspecified, unspecified trimester
CPT/HCPCS: 36415; 80053; 85027; 83615

== ENCOUNTER 2022-11-27 18:05 | Outpatient (REF) | payer MEDICAID, SELFPAY ==
[2022-11-27 10:47] LABS: Creatinine,Urine 123.02 mg/dL; PROTEIN 22.1 mg/dL (0.0-11.9)
[2022-11-27 10:58] LABS: Creatinine,24hr Ur 1.85 g/24hr (0.60-1.80); TOTAL PROTEIN,URINE TIMED 331.5 mg/24hr (0.0-149.1); Total Volume 1500 ml
== END 2022-11-27 18:06 | disposition home or self-care (01) ==
LOC: LBN 18:05
PROVIDERS: PCP Nurse Practitioner Family; Visit Provider Advanced Practice Midwife
DX: O10.011 Pre-existing essential hypertension complicating pregnancy, first trimester; Z3A.08 8 weeks gestation of pregnancy
CPT/HCPCS: 81050; 82570; 84155

== ENCOUNTER 2022-12-13 22:15 | Emergency (ER) | payer MEDICAID, SELFPAY ==
[2022-12-13 22:21] VITALS: BP 173/100; PULSE 85; RESP 16; TEMP 37; O2SAT 100
--- NOTE | 2022-12-13 22:30 | ED.GENADUL_ITS ---
Discharge Plan Disposition Patient Disposition: Home Condition: Stable Discharge Details Clinical Impression: Vaginal bleeding during , Threatened in first trimester Primary Care Provider: JASON MOHAMUD ED Provider: Soila Shetty Home Meds and New Rx's Prescriptions: Continued [id number] oil 400 mcg-35 mg -25 mg-5 mg tablet,chewable PO nifedipine [Procardia XL] 30 mg tablet extended release 24hr 60 mg PO DAILY labetalol 300 mg tablet 300 mg PO BID Qty: 60 4RF acetaminophen [Tylenol] 325 mg capsule 325 mg PO ONCE PRN ondansetron 4 mg tablet,disintegrating 4 mg PO Q8H PRN (Reason: nausea and vomiting) Qty: 30 0RF Discharge Instructions Instructions: Threatened Miscarriage (ED) Additional Instructions: At this time there is a risk for miscarriage due to vaginal bleeding. Please keep your CERTIFIED COURT/MEDICAL INTERPRETER appointment as previously scheduled tomorrow. The radiology department will call you to schedule you for an ultrasound preferably before your CERTIFIED COURT/MEDICAL INTERPRETER appointment. Return to the ER if you begin bleeding more than 1 pad an hour, feel dizzy or lightheaded or have any worsening abdominal pain not relieved by Tylenol. Follow up with ob/ JEWEL GAUGER/primary care provider in 1 days. Return to ED sooner if any worsening or concerns. Increase oral fluids. Referrals: Jaye Marin DO [OSTEOPATHIC DOCTOR] - 1 day Medical Decision Making 37-year-old female 5 para 3 AB 1 presents to the ER with chief complaint of vaginal spotting and cramping which began this morning. She is approximately 10 weeks . She does have a history of hypertension. She reports that she is still continuing to spot less than 1 pad an hour cramping has since resolved. Denies any dysuria nausea vomiting diarrhea or any other associated symptoms. She is hypertensive upon arrival blood pressure is 173/100. She does take labetalol 300 mg twice daily. Work-up ordered including CBC CMP, hCG quant, urinalysis. Pelvic exam performed with assistance from Jaci BHATIA, patient tolerated well. There is some discharge from the cervical os which is blood-tinged unclear if cervical os is open or closed. 7 patient does have CERTIFIED COURT/MEDICAL INTERPRETER appointment tomorrow at 2 PM will have patient present for ultrasound in the a.m. as an outpatient prior to her CERTIFIED COURT/MEDICAL INTERPRETER appointment. At this time diagnosis is threatened miscarriage. Urinalysis shows squamous contamination patient has no dysuria. Treatment not initiated at this time. White blood cells 10.97 sodium is 135 potassium 3.1 we will give potassium supplement. Outpatient US ordered. This text was generated using [employer] system, please disregard any oddities of phrase or misspellings. Medical Records Medical records reviewed: Yes I reviewed the patient's medical records. Lab Data Lab results reviewed: Yes I reviewed the patient's lab results. Labs: Laboratory Tests Range/Units 12/13/22 12/13/22 12/13/22 22:38 22:39 22:45 WBC (4.4-10.8) 10^3/uL 10.97 H RBC (3.93-5.22) 10^6/uL 3.95 Hgb (11.2-15.7) g/dL 12.0 Hct (36.0-46.0) % 34.7 L MCV (80-95) fL 88 MCH (27.0-33.0) pg 30.4 MCHC (32.0-36.0) % 34.6 RDW (11.7-14.6) % 13.2 Plt Count (130-400) 10^3/uL 228 MPV (8.0-11.0) fL 10.4 Immature Gran % 0.4 Neutrophils % 65.9 Lymphocytes % 26.0 Monocytes % 6.2 Eosinophils % 1.2 Basophils % 0.3 Nucleated RBC % (0.0-0.3) % 0.0 Absolute Neutrophils (1.2-6.7) 10^3/uL 7.23 H Absolute Lymphocytes (1.2-3.4) 10^3/uL 2.85 Absolute Monocytes (0.1-0.8) 10^3/uL 0.68 Absolute Eosinophils (0.0-0.7) 10^3/uL 0.13 Absolute Basophils (0.0-0.2) 10^3/uL 0.03 Sodium (136-145) mmol/L 135 L Potassium (3.5-5.1) mmol/L 3.1 L Chloride (98-107) mmol/L 102 Carbon Dioxide (21.0-32.0) mmol/L 25.2 Anion Gap (3-11) mmol/L 7.8 BUN (7-18) mg/dL 10 Creatinine (0.55-1.02) mg/dL 0.9 Est GFR (CKD-EPI 2020) (mL/min/1.73m2) 83.92 Glucose (74-106) mg/dL 98 Calcium (8.5-10.1) mg/dL 8.7 Total Bilirubin (0.2-1.0) mg/dL 0.3 AST (15-37) U/L 15 ALT (14-59) U/L 24 Alkaline Phosphatase (46-116) U/L 81 Total Protein (6.4-8.2) g/dL 7.4 Albumin (3.4-5.0) g/dL 3.4 Beta HCG, Quant (1-3) mIU/mL 06388 H Urine Color (Yellow) Yellow Urine Clarity (Clear) Clear Urine pH (5-8) 6.0 Ur Specific [place] (1.005-1.025) 1.015 Urine Protein (Negative) mg/dL Negative Urine Ketones (Negative) mg/dL Negative Urine Blood (Negative) Large H Urine Nitrite (Negative) Negative Urine Bilirubin (Negative) Negative Urine Urobilinogen (Up to 0.2) mg/dL 0.2 Ur Leukocyte Esterase (Negative) Trace H Urine RBC (0-2) HPF 3-5 H Urine WBC (0-5) HPF >50 H Ur Epithelial Cells (Negative) HPF Moderate Urine Crystals (Negative) HPF Negative Urine Bacteria (Negative) HPF Negative Urine Casts (Negative) LPF Negative Urine Mucus (Negative) Negative Ur Culture Indicated? No/Sq. Contamination Urine Glucose (Negative) mg/dL Negative HPI General Mode of arrival: ambulatory . Date/Time Provider Initiated Documentation: 12/13/22 22:17 . Limitations to Documentation: no limitations . Information obtained by: patient, RN notes reviewed and old records reviewed . HPI Narrative: 37-year-old female 5 para 3 AB 1 presents to the ER with chief complaint of vaginal spotting and cramping which began this morning. She is approximately 10 weeks . She does have a history of hypertension. She reports that she is still continuing to spot less than 1 pad an hour cramping has since resolved. Denies any dysuria nausea vomiting diarrhea or any other associated symptoms. She is hypertensive upon arrival blood pressure is 173/100. She does take labetalol 300 mg twice daily. Related Data Home Medications Medication Instructions Recorded Confirmed acetaminophen 325 mg capsule 325 mg PO ONCE PRN 01/04/22 12/13/22 (Tylenol) ondansetron 4 mg disintegrating 4 mg PO Q8H PRN nausea and 11/07/22 12/13/22 tablet vomiting #30 tabs [id number] 400 mcg-om3 35 mg-dha 25 tab PO 11/21/22 12/06/22 mg-epa 5 mg-fish oil chewable tablet nifedipine 30 mg tablet,extended 60 mg PO DAILY 11/21/22 12/13/22 release 24 hr (Procardia XL) labetalol 300 mg tablet 300 mg PO BID #60 tabs 12/06/22 12/13/22 Previous Rx's Medication Instructions Recorded ondansetron 4 mg disintegrating 4 mg PO Q8H PRN nausea and 11/07/22 tablet vomiting #30 tabs labetalol 300 mg tablet 300 mg PO BID #60 tabs 12/06/22 Allergies Allergy/AdvReac Type Severity Reaction Status Date / Time No Known Drug Allergies Allergy Verified 12/13/22 22:25 General 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: 3 Review of Systems All systems reviewed & are unremarkable except as noted in HPI and below Gastrointestinal Gastrointestinal: Reports abdominal pain Genitourinary Genitourinary: Reports as per HPI and Reports abnormal vaginal bleeding PFSH All Active Problems (Updated 12/13/22 @ 23:29 by Soila Shetty NP) Vaginal bleeding during (Acute) Threatened in first trimester (Acute) Proteinuria affecting (Acute) BMI 45.0-49.9, adult (Acute) Chronic hypertension affecting (Acute) Hypertension (Acute 07/07/15) Medical History Abdominal cramping Acute right flank pain ASCUS with positive high risk HPV (08/10/15) Bile leak, postoperative Biliary colic Body mass index (BMI) of 40.0 to 49.9 06/25/2019 Cholelithiasis Contraception (04/11/15) 06/25/2019 Depo-Provera times ~ 5 years after of youngest child. Patient counseled regarding Mirena IUD. HPV test positive Positive HPV since 2008. Negative colpo directed biopsies. 12/30/18 Neg pap/Pos HPV 06/25/2019: ECC- Hypokalemia Hypomagnesemia Kidney calculus Surgical History H/O wisdom tooth extraction S/P ERCP S/P laparoscopic cholecystectomy Family History Son Developmental delay agenesis of the corpus collosum. Severe disabilities Social History Smoking/Tobacco Use Status: Never Smoking risk assessment performed?: Yes Alcohol Intake: current Alcohol Intake frequency: holidays/special occasions only Alcohol type: other Drug use: Never Substance use type: does not use Household members: children and other Details: Not relationship. 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 He is special needs and he is unable to walk. Exam Narrative Exam Narrative: Constitutional: Alert and oriented x3. Appears stated age. Obese body habitus. Head: Normocephalic, no trauma. Eyes: Pupils PERRL, Red reflex noted, EOM's intact. Eyelids symmetrical without lesions, discharge, or swelling. ENT: Bilateral TM's WNL, External ear normal to inspection, no mastoid TTP, swelling, or erythema, Nasal turbinates WNL, no nasal discharge. Normal dentition, Posterior pharynx WNL, no exudate. Chest: RRR, Normal S1, S2, distal pulses intact. Resp: Lungs clear to auscultation bilaterally, no wheezes, rales, or rhonchi. Abdomen: Soft, non-distended, Normoactive bowel sounds all 4 quads. : See Pelvic exam below Musculoskeletal: Normal gait, 5/5 strength to all four extremities. Skin: No suspicious rashes or lesions. Capillary refill less than 2 sec. Neurologic: Cranial nerves II-XII intact. Alert and oriented x 3. Motor: No deficits noted. Sensory: Intact bilaterally all 4 extremities. Reflexes: DTR's intact bilaterally.. Hematologic/Lymphatic: No ecchymosis, no lymphadenopathy. Speculum Exam - Vagina: vaginal bleeding Speculum Exam - Cervix: closed and abnormal cervical discharge bloody, yellow and malodorous OB/External & Speculum: vaginal bleeding Course Vital Signs Vital signs: Vital Signs Temperature 37.0 C 12/13/22 22:21 Pulse 85 12/13/22 22:21 Respiratory Rate 16 12/13/22 22:21 Blood Pressure 173/100 H 12/13/22 22:21 Pulse Oximetry 100 12/13/22 22:21 Temperature 37.0 C 12/13/22 22:21 Temperature Source Oral 12/13/22 22:21 Pulse 85 12/13/22 22:21 Respiratory Rate 16 12/13/22 22:21 Respiratory Effort Normal 12/13/22 22:21 Blood Pressure 173/100 H 12/13/22 22:21 Blood Pressure Position Sitting 12/13/22 22:21 Pulse Oximetry 100 12/13/22 22:21 Oxygen Delivery Method Room Air 12/13/22 22:21 Oxygen Flow Rate 0 12/13/22 22:21 Pain Level 0 12/13/22 22:21
[2022-12-13 22:44] LABS: Abs Immature Grans 0.04 10^3/uL (0.0-0.06); Absolute Basophil Count 0.03 10^3/uL (0.0-0.2); Absolute Eosinophil Count 0.13 10^3/uL (0.0-0.7); Absolute Lymphocyte Count 2.85 10^3/uL (1.2-3.4); Absolute Monocyte Count 0.68 10^3/uL (0.1-0.8); Basophils % 0.3; Eosinophils % 1.2; HCT 34.7 % (36.0-46.0); Immature Grans % 0.4; MCH 30.4 pg (27.0-33.0); MCHC 34.6 % (32.0-36.0); MCV 88 fL (80-95); MPV 10.4 fL (8.0-11.0); Monocytes % 6.2; Neutrophils % 65.9; Platelet Count 228 10^3/uL (130-400); RBC 3.95 10^6/uL (3.93-5.22); RDW 13.2 % (11.7-14.6); RDW-SD 42.8 fL; WBC 10.97 10^3/uL (4.4-10.8)
[2022-12-13 22:45] LABS: Absolute Neutrophil Count 7.23 10^3/uL (1.2-6.7)
[2022-12-13 23:02] LABS: Bilirubin Negative (Negative); Blood Large (Negative); Clarity Clear (Clear); Glucose Negative (Negative); Ketones Negative (Negative); Leukocyte Esterase Trace (Negative); Nitrite Negative (Negative); Specific Gravity 1.015 (1.005-1.025); Urobilinogen 0.2 mg/dL (Up to 0.2)
[2022-12-13 23:06] LABS: Bacteria Negative HPF (Negative); C & S Indicated? No/Sq. Contamination; Casts Negative LPF (Negative); Crystals Negative HPF (Negative); Epithelial Cells Moderate HPF (Negative); Mucus Negative (Negative); WBC >50 HPF (0-5)
[2022-12-13 23:09] LABS: ALT 24 U/L (14-59); AST 15 U/L (15-37); Albumin 3.4 g/dL (3.4-5.0); Alkaline Phosphatase 81 U/L (46-116); Anion Gap 7.8 mmol/L (3-11); BUN 10 mg/dL (7-18); Bilirubin, Total 0.3 mg/dL (0.2-1.0); CO2 25.2 mmol/L (21.0-32.0); CREATININE 0.9 mg/dL (0.55-1.02); Calcium 8.7 mg/dL (8.5-10.1); Chloride 102 mmol/L (98-107); Estimated GFR 83.92 (mL/min/1.73m2); Glucose 98 mg/dL (74-106); Potassium 3.1 mmol/L (3.5-5.1); Sodium 135 mmol/L (136-145); Total Protein 7.4 g/dL (6.4-8.2)
[2022-12-13 23:53] VITALS: BP 141/75; PULSE 83; RESP 17; TEMP 37; O2SAT 98
== END 2022-12-13 23:53 | disposition home or self-care (01) ==
PROVIDERS: Emergency Provider Registered Nurse Emergency; PCP Nurse Practitioner Family
DX: O20.0 Threatened abortion (principal); Z3A.11 11 weeks gestation of pregnancy
CPT/HCPCS: 36415; 80053; 99283; 81003; 81015; 84702; 85025

== ENCOUNTER 2022-12-14 11:58 | Outpatient (CLI) | payer MEDICAID, SELFPAY ==
--- NOTE | 2022-12-14 | DI.US_ITS ---
Exam(s) US OB 1ST TRIMESTER EXAM: US OB 1ST TRIMESTER CLINICAL HISTORY: 10 WK , VAGINAL BLEEDING. COMPARISON: No exams were available for comparison TECHNIQUE: Transabdominal Transvaginal first trimester obstetrical ultrasound performed. FINDINGS: There is a single living intrauterine gestation. Estimated sonographic age based on crown-rump lengt h is 11 weeks. heart rate is 165 beats per minute. There is a 2.2 x 1.0 x 4.6 cm anechoic fluid collection adjacent to the gestational sac which may rep resent a subchorionic hemorrhage. Pelvic Measurments Uterus: 12.8 x 7.4 x 8.8 cm. There appears to be a 2.2 x 1.8 x 2.5 cm uterine fibroid. Rt Ovary: 4.3 x 2.5 x 2.8 cm Lt Ovary: 2.2 x 1.6 x 1.8 cm Composite Age: 11 weeks EDC by US: 07/05/2023 Heart Rate: 165BPM IMPRESSION: 1. Single living intrauterine gestation with estimated sonographic age of 11 weeks. 2. Small fluid collection adjacent to the gestational sac which may represent a subchorionic hemorrha ge. DATA REPOSITORY:
== END 2022-12-14 12:18 ==
LOC: DI 11:58
PROVIDERS: PCP Nurse Practitioner Family; Visit Provider Registered Nurse Emergency
DX: O26.851 Spotting complicating pregnancy, first trimester (principal)
CPT/HCPCS: 76801

== ENCOUNTER 2022-12-24 04:17 | Outpatient (CLI) | payer MEDICAID, SELFPAY ==
[2022-12-24 14:58] LABS: Panorama Kit Sent via Fed Ex
[2022-12-24 15:02] LABS: Abs Immature Grans 0.03 10^3/uL (0.0-0.06); Absolute Basophil Count 0.03 10^3/uL (0.0-0.2); Absolute Eosinophil Count 0.15 10^3/uL (0.0-0.7); Absolute Lymphocyte Count 2.11 10^3/uL (1.2-3.4); Absolute Monocyte Count 0.52 10^3/uL (0.1-0.8); Absolute Neutrophil Count 6.56 10^3/uL (1.2-6.7); Basophils % 0.3; Eosinophils % 1.6; HCT 34.5 % (36.0-46.0); HGB 12.1 g/dL (11.2-15.7); Immature Grans % 0.3; Lymphocytes % 22.4; MCH 30.6 pg (27.0-33.0); MCHC 35.1 % (32.0-36.0); MCV 87 fL (80-95); MPV 10.5 fL (8.0-11.0); Monocytes % 5.5; Neutrophils % 69.9; Platelet Count 227 10^3/uL (130-400); RBC 3.95 10^6/uL (3.93-5.22); RDW 12.9 % (11.7-14.6); RDW-SD 40.8 fL
[2022-12-24 15:42] LABS: Glucose,1 Hr (Glucola) 99 mg/dL (80-140)
[2022-12-24 15:56] LABS: TSH (W/Ref FT4) 1.02 uIU/mL (0.36-3.74)
[2022-12-25 09:15] LABS: Hepatitis B Surface Ag Negative (Negative)
[2022-12-25 09:32] LABS: Hepatitis C Ab w Rflx HCV PCR Negative (Negative)
[2022-12-25 09:46] LABS: HIV-1/2 Ag & Ab Screen Negative (Negative)
[2022-12-25 10:45] LABS: Varicella IgG Antibody Positive (See Note)
[2022-12-25 10:51] LABS: Rubella IgG Ab (UVM) Positive (See Note)
[2022-12-26 14:40] LABS: Syphilis IgG w/Reflex Nonreactive (Nonreactive)
== END 2022-12-24 04:18 | disposition home or self-care (01) ==
LOC: LBO 04:17
PROVIDERS: PCP Nurse Practitioner Family; Visit Provider Advanced Practice Midwife
DX: O09.521 Supervision of elderly multigravida, first trimester (principal); Z3A.12 12 weeks gestation of pregnancy; O10.011 Pre-existing essential hypertension complicating pregnancy, first trimester
CPT/HCPCS: 36415; 82950; 86787; 86803; 86850; 86900; 86901; 87340; 87389; 84443; 85025; 86762; 86780

== ENCOUNTER 2022-12-24 15:01 | Outpatient (REF) | payer MEDICAID, SELFPAY ==
--- NOTE | 2022-12-24 14:30 | PAPFT_PTH ---
PATIENT: Shania Goff LOC: [facility] U#:[id number] AGE/SX: 37/F ROOM: RE12/24/[address]: Lexie Schmitt CNM : 1985 BED: DIS: 12/24/2022 SPEC #: [id number] RECD: 12/24/22 17:56 STATUS: PANKAJHarpreet MEIER #: [id number] PAOLA: 12/24/22 14:[address]: Lexie Schmitt DEPT: [facility] Cytology RECD BY: Claudia Phelan ENTERED: 12/24/22 17:56 SP TYPE: PAPFT BOLIVAR DR: JASON MOHAMUD, TI Tissues: 1 - CX/ENDOCX FOR PAP SMEARS Procedures: PAP THIN PREP/[facility] Screening HPV DNA PROBE Comments: [id number] (HPV 16 & 18/45) (CHLAMYDIA/GC)
[2022-12-24 17:55] LABS: *AMPHETAMINES SCREEN URINE Negative (Negative); *BARBITURATES SCREEN URINE Negative (Negative); *BENZODIAZEPINES SCREEN URINE Negative (Negative); Cannabinoids THC Negative (Negative); Cocaine Screen,Urine Negative (Negative); METHADONE URINE SCREEN Negative (Negative); OPIATES URINE SCREEN Negative (Negative)
[2022-12-24 18:00] LABS: Tricyclic Antidepressants Negative (Negative)
[2022-12-26 12:40] LABS: Chlamydia Result Negative (Negative); GC Result Negative (Negative)
[2022-12-31 19:14] LABS: Buprenorphine Negative ng/mL (Cutoff: 5.0); Norbuprenorphine Negative ng/mL (Cutoff: 2.5)
== END 2022-12-24 15:02 | disposition home or self-care (01) ==
LOC: LBN 15:01
PROVIDERS: PCP Nurse Practitioner Family; Visit Provider Advanced Practice Midwife
DX: O98.519 Other viral diseases complicating pregnancy, unspecified trimester (principal); R87.810 Cervical high risk human papillomavirus (HPV) DNA test positive; Z3A.00 Weeks of gestation of pregnancy not specified
CPT/HCPCS: 80307; 80348; 87077; 87491; 87591; 88142; 87086; 87186; 87480; 87510; 87624; 87660

== ENCOUNTER → 2023-03-18 01:11 | Outpatient (CLI) | payer MEDICAID, SELFPAY ==
--- NOTE | 2023-03-18 06:45 | DI.US_ITS ---
Exam(s) US OB MARIBELL WEIGHT EXAM: US OB MARIBELL WEIGHT CLINICAL HISTORY: growth,chronic hypertension,O10.919. TECHNIQUE: Transabdominal obstetrical ultrasound performed. COMPARISON: US US OB 1ST TRIMESTER from 12/14/2022 FINDINGS:: Number of fetuses: One. position: Transverse, spine posterior Placental location: Posterior. No evidence of previa. BIOMETRIC DATA: BPD: 57mm = 23+3 weeks HC: 225mm = 24+3 weeks AC: 215mm = 26+ 0 weeks FL: 46 mm = 25 + 0 weeks EFW: 805 Gms = 92% Composite Age: 24+5 weeks YUE: 03 July 2023 Heart Rate: 149BPM Amniotic fluid index: 14.2 cm. Amount of fluid is visually within normal limits. IMPRESSION: size and weight are within the expected range. DATA REPOSITORY:
== END ==
PROVIDERS: PCP Nurse Practitioner Family; Visit Provider Obstetrics & Gynecology
DX: O10.919 Unspecified pre-existing hypertension complicating pregnancy, unspecified trimester (principal); Z3A.24 24 weeks gestation of pregnancy
CPT/HCPCS: 76816

== ENCOUNTER 2023-04-15 05:00 | Outpatient (CLI) | payer MEDICAID, SELFPAY ==
[2023-04-15 12:52] LABS: HCT 31.2 % (36.0-46.0); HGB 10.7 g/dL (11.2-15.7); MCH 30.6 pg (27.0-33.0); MCHC 34.3 % (32.0-36.0); MCV 89 fL (80-95); MPV 9.9 fL (8.0-11.0); Platelet Count 208 10^3/uL (130-400); RDW 13.2 % (11.7-14.6); RDW-SD 43.4 fL; WBC 11.32 10^3/uL (4.4-10.8)
[2023-04-15 13:01] LABS: Glucose,1 Hr (Glucola) 119 mg/dL (80-140)
== END 2023-04-15 05:01 | disposition home or self-care (01) ==
LOC: LBO 05:00
PROVIDERS: PCP Nurse Practitioner Family; Visit Provider Obstetrics & Gynecology
DX: O09.523 Supervision of elderly multigravida, third trimester (principal)
CPT/HCPCS: 36415; 82950; 85027

== ENCOUNTER → 2023-05-20 01:38 | Outpatient (CLI) | payer MEDICAID, SELFPAY ==
--- NOTE | 2023-05-20 07:45 | DI.US_ITS ---
Exam(s) US OB MARIBELL WEIGHT EXAM: US OB MARIBELL WEIGHT CLINICAL HISTORY: Growth,hypertension,i10,009.529. TECHNIQUE: Transabdominal obstetrical ultrasound was performed. COMPARISON: US US OB MARIBELL WEIGHT from 03/18/2023 FINDINGS: There is a single viable intrauterine gestation with cardiac activity identified-150 bpm The fetus is presently in cephalic position . Amniotic fluid: There is upper normal amount of amniotic fluid with an MARIBELL of 20.8cm. Placental location: The placenta is posterior grade 1,with no evidence of placenta previa. Dating parameters place this at approximately 33 weeks and 5 days gestational age, implying YUE of 07/03/2023. BPD measures 33 weeks and 3 days HC measures 33 weeks and 4 days AC measures 34 weeks and 1 day FL measures 33 weeks and 6 days Estimated weight is 2304 gm-5 pounds 1 ounce Fetus is at the 70th percentile on the Hadlock scale. IMPRESSION:: Viable 3rd trimester gestation, as described above. DATA REPOSITORY:
== END ==
PROVIDERS: PCP Nurse Practitioner Family; Visit Provider Obstetrics & Gynecology
DX: I10 Essential (primary) hypertension (principal); O09.523 Supervision of elderly multigravida, third trimester
CPT/HCPCS: 76816

== ENCOUNTER 2023-05-27 06:55 | Outpatient (CLI) | payer MEDICAID, SELFPAY ==
[2023-05-27 10:18] VITALS: BP 118/60; PULSE 85; TEMP 36.8
[2023-05-27 10:36] VITALS: BP 118/60; PULSE 85
--- NOTE | 2023-05-27 12:03 | W.OBNST ---
Date of service: 05/27/23 Time of Service: 11:30 NST Evaluation Reason for NST Reasons for Nonstress Test: ADVANCED MATERNAL AGE Gestational Age Gestational Age in Weeks and Days: 34 Weeks and 1Days Test and Monitor Explained Test/Monitor Explained: Test Explained, Monitor Explained and Patient Verbalized Understanding Vital Signs Blood Pressure: 118/60 Pulse: 85 Temperature: 98.2 F NST Information Date on Monitor: 05/27/23 Time on Monitor: 10:21 Date off Monitor: 05/27/23 Time off Monitor: 11:24 Total Time on Monitor: 63 NST Interventions: PO Hydration and Meal Given NST Evaluation Patient States Movement: Present FHR Baseline: 145 Variability: Moderate 6-25 bpm Accelerations: 15x15 Decelerations: None NST Results: Reactive Note Ultrasound Done: N/A. NST Note Note: See record NST Reviewed and Verified by: Taylor Enriquez
[2023-05-27 12:06] VITALS: BP 118/60; PULSE 85; TEMP 36.8
== END 2023-05-27 11:27 ==
LOC: BCD 06:57 → OBS 10:17
PROVIDERS: PCP Nurse Practitioner Family; Visit Provider Obstetrics & Gynecology
DX: O09.523 Supervision of elderly multigravida, third trimester (principal); Z3A.34 34 weeks gestation of pregnancy
CPT/HCPCS: 59025

== ENCOUNTER 2023-06-03 07:20 | Outpatient (CLI) | payer MEDICAID, SELFPAY ==
[2023-06-03 11:47] VITALS: BP 123/70; PULSE 90; TEMP 36.7
[2023-06-03 16:54] VITALS: BP 123/70; PULSE 90; TEMP 36.7
--- NOTE | 2023-06-03 16:54 | W.OBNST ---
Date of service: 06/03/23 Time of Service: 11:00 NST Evaluation Reason for NST Reasons for Nonstress Test: CHRONIC HYPERTENSION and ADVANCED MATERNAL AGE Gestational Age Gestational Age in Weeks and Days: 35 Weeks and 0Days Test and Monitor Explained Test/Monitor Explained: Test Explained, Monitor Explained and Patient Verbalized Understanding Vital Signs Blood Pressure: 123/70 Pulse: 90 Temperature: 98.1 F Urine Results Urine Protein: Negative Urine Ketones: Negative Urine Glucose: Negative Urine Blood: Negative NST Information Date on Monitor: 06/03/23 Time on Monitor: 10:05 Date off Monitor: 06/03/23 Time off Monitor: 11:30 Total Time on Monitor: 85 NST Interventions: PO Hydration, Reposition Patient and Notify Provider Contraction Frequency: Occasional BH NST Evaluation Patient States Movement: Present FHR Baseline: 140 Variability: Moderate 6-25 bpm Accelerations: 15x15 Decelerations: None NST Results: Reactive Note Ultrasound Done: N/A. NST Note Note: See record NST Reviewed and Verified by: Taylor Enriquez
== END 2023-06-03 11:10 ==
LOC: BCD 07:30 → OBS 10:10
PROVIDERS: PCP Nurse Practitioner Family; Visit Provider Obstetrics & Gynecology
DX: O13.3 Gestational [pregnancy-induced] hypertension without significant proteinuria, third trimester (principal); O09.523 Supervision of elderly multigravida, third trimester; Z3A.35 35 weeks gestation of pregnancy
CPT/HCPCS: 59025

== ENCOUNTER 2023-06-11 23:07 | Observation (INO) | payer MEDICAID, SELFPAY ==
[2023-06-11 21:21] VITALS: BP 152/97; PULSE 77; RESP 20; TEMP 36.8; O2SAT 99
[2023-06-11 21:35] VITALS: BP 152/97; PULSE 77; RESP 20; TEMP 36.8; O2SAT 99
[2023-06-11 21:40] VITALS: BP 174/91; PULSE 79
--- NOTE | 2023-06-11 21:57 | NUR.NOTE ---
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 Pt denies headache visual changes or epigastric pain. Only problem reported is chronic hypertension which she takes Procardia and Labetolol for. Last took Labetolol 1 tab at 1900. Orders enttered per Dr Marin. No edema noted. Bilateral Patellar DTR's +2, normal, negative clonus.
[2023-06-11 22:14] VITALS: BP 153/84; RESP 20
--- NOTE | 2023-06-11 22:15 | NUR.NOTE ---
Nursing Note:2124 Dr Marin called unit to check on pt's BP. updated with Pt's respiratory coldsymptoms, runny nose, no cough, reported as improving last couple of days. MD ordered Covid rapid swab.
[2023-06-11 22:16] LABS: HCT 32.9 % (36.0-46.0); HGB 11.5 g/dL (11.2-15.7); MCH 30.3 pg (27.0-33.0); MCV 87 fL (80-95); MPV 10.5 fL (8.0-11.0); Platelet Count 219 10^3/uL (130-400); RBC 3.79 10^6/uL (3.93-5.22); RDW-SD 40.6 fL; WBC 11.57 10^3/uL (4.4-10.8)
[2023-06-11 22:23] LABS: COMMENT (LAB VIEW ONLY) 149.65 mg/dL; PROTEIN 32.1 mg/dL; Prot/Crea Ur Ratio 0.21
--- NOTE | 2023-06-11 22:30 | NUR.NOTE ---
Nursing Note: called to check in on PT. New orders received
[2023-06-11 22:35] LABS: ALT 27 U/L (14-59); AST 18 U/L (15-37); Albumin 2.6 g/dL (3.4-5.0); Alkaline Phosphatase 149 U/L (46-116); Anion Gap 11.6 mmol/L (3-11); BUN 15 mg/dL (7-18); Bilirubin, Total 0.3 mg/dL (0.2-1.0); CO2 22.4 mmol/L (21.0-32.0); CREATININE 0.8 mg/dL (0.55-1.02); Calcium 9.5 mg/dL (8.5-10.1); Chloride 103 mmol/L (98-107); Estimated GFR 96.06 (mL/min/1.73m2); Glucose 84 mg/dL (74-106); Potassium 3.7 mmol/L (3.5-5.1); Sodium 137 mmol/L (136-145); Total Protein 6.8 g/dL (6.4-8.2)
--- NOTE | 2023-06-11 23:53 | HPE_ITS ---
Date of service: 06/11/23 Time of Service: 23:53 Assessment and Plan Assessment and plan (1) Chronic hypertension affecting : Status: Acute Assessment and plan: Patient is a 38-year-old female well-known to our service with history of chronic hypertension now at 36 weeks and 1 day with elevated blood pressures despite her daily doses of Procardia, 60 XL and labetalol 300 mg twice daily. I nitial laboratory studies have been normal she has a protein creatinine ratio of 0.21. She does have intermittently elevated blood pressures of greater than 160s over 90s. At this point, we will add 1 dose of labetalol, 100 mg to her additional 300 mg which she took earlier. Will perform a 24-hour urine collection, continue to monitor her blood pressures closely, and have daily nonstress tests. Will monitor for any severe features and consider labor induction if indicated. (2) BMI 45.0-49.9, adult: Status: Acute (3) Elderly multigravida, currently : Status: Acute (4) Hypertension: Status: Chronic Assessment and plan: Chronic, on labetalol 300 mg p.o. twice daily and Procardia 60 XL daily Qualifiers: Hypertension type: primary hypertension Qualified Code(s): I10 - Essential (primary) hypertension (5) Pre-eclampsia complicating hypertension: Status: Acute Assessment and plan: Intermittently elevated blood pressures despite medication, stable laboratory studies. Will perform 24-hour urine and continue to observe closely. Low threshold for labor induction. OB-HPI Labor/Delivery History of Present Illness Reason for Visit: rule out preeclampsia Chief Complaint: Signs/Symptoms Gestational HTN , Associated Signs and Symptoms of GestationalHTN: Elevated blood pressure. YUE Calculator Estimated Delivery Date Method Current WG Current Estimate 07/08/23 LMP (Certain) 36w 2d Other Estimates 07/10/23 Ultrasound #1 36w 0d 07/05/23 Ultrasound #2 36w 5d Comments: Patient called from work today with elevated blood pressure of 160/90 and feeling somewhat poorly. She has a history of chronic hypertension on medications which include labetalol, and Procardia. She was seen in the center for evaluation, she has intermittently elevated blood pressures from 150s to 160s over 80s to 90s. She is otherwise asymptomatic. Baby's been moving and active. She has occasional contractions. She denies loss of fluid. She has no headaches, visual changes, or epigastric pain. She has no edema, or changes in her bowel or bladder function or habits History of Present Expected Delivery Route/Plan - MD FOB/not pt's partner - Wilber Garcia (8 other children, 1st child w/pt) Pt's boyfriend is Ashwin, he lives in [place], no children, moving to [place] soon-karen?? Currently in jail - unlikely to be present for the delivery BG Specific Issues/Plan 1. Chronic hypertension & pre- proteinuria (>330 on 24 hr urine) - Labetalol 300 mg BID & Procardia XR 60 mg daily - Low dose ASA recommended 81mg/162mg alternating @ 12 wks - NSTs at 32wks 2. BMI 45 - Early GTT 99 3. AMA, desires cfDNA screen: low risk female, known CF negative. - MFM consult and mona sono 4. Pt's son has agenesis of the corpus colosum. - [facility] consult and mona sono. Wants to switch to [facility] 5. Interested in BTL, consent signed 05/28/23 6. BV+ and E-Coli UTI at initial OB: Flagyl 500 mg PO BID x7 days, MacroBid 100 mg PO BID x7 days 7. 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 Will need repeat colposcopic examination at 6-week . Review of Systems Narrative: Feeling somewhat poorly today All systems reviewed & are unremarkable except as noted in HPI and below Constitutional Constitutional: Reports as per HPI, Reports fatigue, Denies fever(s) and Denies poor appetite Eyes Eyes: Reports system reviewed and no additional complaints, except as documented ENT Ears, Nose, Mouth, and Throat: Reports system reviewed and no additional complaints, except as documented and Reports nasal congestion Cardiovascular Cardiovascular: Reports as per HPI, Reports system reviewed and no additional complaints, except as documented, Denies chest pain, Denies rapid heart rate, Denies edema, Denies irregular heart rhythm and Denies leg edema Respiratory Respiratory: Reports as per HPI and Denies cough Gastrointestinal Gastrointestinal: Reports as per HPI and Reports system reviewed and no additional complaints, except as documented Genitourinary Genitourinary: Reports system reviewed and no additional complaints, except as documented and Reports as per HPI Endocrine Endocrine: Reports fatigue PFSH All Active Problems (Updated 06/12/23 @ 00:02 by Jaye Marin DO) Pre-eclampsia complicating hypertension (Acute) HGSIL on Pap smear of cervix (Acute) Hypertension (Chronic 07/07/15) Family history of disorder of brain (Acute) pt's third son has agenesis of the corpus colosum Elderly multigravida, currently (Acute) Proteinuria affecting (Acute) BMI 45.0-49.9, adult (Acute) Chronic hypertension affecting (Acute) Medical History (Updated 06/12/23 @ 00:02 by Jaye Marin DO) Hypokalemia Hypomagnesemia Kidney calculus Acute right flank pain Bile leak, postoperative Biliary colic Cholelithiasis Body mass index (BMI) of 40.0 to 49.9 06/25/2019 HPV test positive Positive HPV since 2008. Negative colpo directed biopsies. 12/30/18 Neg pap/Pos HPV 06/25/2019: ECC- Contraception (04/11/15) 06/25/2019 Depo-Provera times ~ 5 years after of youngest child. Patient counseled regarding Mirena IUD. ASCUS with positive high risk HPV (08/10/15) Surgical History S/P ERCP S/P laparoscopic cholecystectomy H/O wisdom tooth extraction Family History Son Developmental delay agenesis of the corpus collosum. Severe disabilities Social History (Updated 03/04/23 @ 10:45 by Taylor Enriquez MD) Smoking/Tobacco Use Status: Never Smoking risk assessment performed?: Yes Alcohol Intake: current Alcohol Intake frequency: holidays/special occasions only Alcohol type: other Drug use: Never Substance use type: does not use Household members: children and other Details: Not relationship. Youngest son is wheelchair bound Number of Children: 3 Communication Needs: None current occupation: 02/2023. Works at [email or web address] in [place] Sexually active: Yes Do you feel safe at home: Yes Do you feel safe in your relationship?: Yes Female Reproductive History Menstrual control method: progesterone injection History History 5 Para 3 Hx # Term Pregnancies 3 Multiple births 0 Hx # Pregnancies 0 Ectopic pregnancies 0 AB induced 0 Hx Number of Living Children 3 AB spontaneous 1 Past Pregnancies Del. Date GA/Weeks # Preg Succ Route Wgt Sex Labor Lgth Anesth esia Location Prov Complic 08/20/08 38 No Yes vaginal 6 lb Male [facility] 10/03/11 39 Yes Yes vaginal 7 lb 10 oz Male [facility] 08/13/14 38 No Yes vaginal 6 lb 10 oz Male [facility] and Delivery Date: 08/20/08 Last Updated by: Lexie Schmitt IOL for hypertension [facility] Delivery Date: 10/03/11 Last Updated by: Lexie Schmitt IOL at 39 wks for HTN, [facility] Delivery Date: 08/13/14 Last Updated by: Lexie Schmitt IOL for HTN, to [facility] after for infant's agenesis of the corpus collosum, inherited from the father's family, is special needs. Hugh Meds Allergies and Home Medications Allergies Allergy/AdvReac Type Severity Reaction Status Date / Time No Known Drug Allergies Allergy Verified 05/13/23 11:26 Home Medications Medication Instructions Recorded Confirmed Type acetaminophen 325 mg capsule 325 mg PO ONCE PRN 01/04/22 06/11/23 History (Tylenol) [id number] 400 mcg-om3 35 mg-dha 25 tab PO 11/21/22 06/03/23 History mg-epa 5 mg-fish oil chewable tablet aspirin 81 mg tablet,delayed 81 mg PO DAILY #90 tabs 12/24/22 06/11/23 Rx release ondansetron 4 mg disintegrating See Rx Instructions .Route 03/01/23 06/11/23 Rx tablet .COMPLEX #30 tabs labetalol 300 mg tablet See Rx Instructions .Route 05/01/23 06/11/23 Rx .COMPLEX #180 tabs nifedipine 60 mg tablet,extended See Rx Instructions .Route 05/10/23 06/11/23 Rx release .COMPLEX #90 tabs Exam Physical Exam Vital signs: Temp Pulse Resp BP Pulse Ox 98.2 F 79 20 153/84 H 99 06/11/23 21:35 06/11/23 21:40 06/11/23 22:14 06/11/23 22:14 06/11/23 21:35 Vital Signs Reviewed: Yes Notable Details: Intermittently elevated blood pressure Constitutional Constitutional: morbidly obese and cooperative Detailed Labor and Delivery Exam Dilation: 0.5 Effacement (%): 50 station: -3 Cervix position: posterior Consistency: soft Lara Score: Cervical Points Exam 0 1 2 3 Dilation Closed 1-2cm 3-4 cm 5-6cm Effacement 0-30% 40-50% 60-70% 80% Consistency Firm Medium Soft Station -3 -2 -1,0 +1,+2 Position Posterior Mid Anterior LARA Score(Cervical Ripeness Score): 3 Amniotic Membrane Status: Intact Fetus A Heart Rate Baseline: 140 Monitor Accelerations: Present Monitor Decelerations: None Variability: Moderate (6-25 BPM) Presentation: Vertex Est. Weight: 6 lb HEENT Exam HEENT Exam: Normal Detailed Neck Exam Neck exam general surgery: Present supple; Absent swelling Respiratory Exam Respiratory Exam: Normal Cardiovascular Exam Cardiovascular Exam: Normal Abdominal Exam Abdominal Exam: Normal Exam Exam: Normal Extremities Exam Extremities Exam: Normal Detailed Neurological Exam Neurological: Present alert, oriented X3, CN II-XII intact and normal tone; Absent clonus Psychiatric Exam Psychiatric Exam: Normal Results Abnormal Lab Findings: Abnormal Labs 06/11/23 21:55 WBC 11.57 H RBC 3.79 L Hct 32.9 L Anion Gap 11.6 H Alkaline Phosphatase 149 H Albumin 2.6 L Risk Assessment Risk for Shoulder Dystocia Historical/Initial OB: NEGATIVE FOR: Pelvic Abnormality, Pre- BMI>30, Previous Shoulder Dystocia or Previous Macrosomia Risk for Pre-Eclampsia Date Initiated/Initials: Discussed with Shania 11/12/22 Yes, if one or more: POSTIVE FOR: Chronic HTN; NEGATIVE FOR: Hx Pre-E/Gest HTN, Multiple Gestation, Pre-gestational DM, Renal Disease, Systemic Lupus or APA Syndrome Yes, if 2 or more: POSITIVE FOR: Age>= 35 yrs and BMI>30; NEGATIVE FOR: Nulliparity, >10yr btwn pregnancies, ethinicty, Mother/Sister w/ Pre-E or Previous IUGR Risk for Post- Hemorrhage Initial: NEGATIVE FOR: Multiple Gestation, Previous PPH, Known Clotting Deficiency, Grand Multiparity or Anticoagulation Risks Reviewed Risks Reviewed Upon Admission: Yes
[2023-06-12] VITALS (12 sets, daily range): BP systolic 112–150; BP diastolic 68–94; PULSE 68–99; RESP 16–20; TEMP 36.4–37; O2SAT 98–99
[2023-06-12] MEDS: Labetalol 100 MG TAB PO (00:05)
[2023-06-12 00:20] LABS: Source Nasal/Nares
[2023-06-12 00:50] LABS: COVID-19 PCR POSITIVE (Negative)
--- NOTE | 2023-06-12 01:09 | NUR.NOTE ---
Nursing Note: updated with Pt Covid Pos status
[2023-06-12] MEDS: NIFEdipine-CR 30 MG TABCR 60 MG PO (08:45)
[2023-06-12] MEDS: Labetalol 100 MG TAB 300 MG PO ×2 (08:46→20:01)
[2023-06-12] MEDS: Calcium Carbonate *TUMS* 500 MG CHEW PO (18:03)
--- NOTE | 2023-06-12 23:02 | PGE_ITS ---
Date of service: 06/12/23 Time of Service: 23:02 Assessment and Plan Assessment and plan (1) COVID-19: Status: Acute Assessment and plan: Currently asymptomatic. Sxms started 6 days ago but she thought it was a cold so she didn't test. First positive test was yesterday. (2) Chronic hypertension affecting : Status: Acute Assessment and plan: HTN had previously been well controlled during most of the until yesterday. She had a normal urine protein creatinine ratio and we are awaiting a 24hr urine protein result to determine if she has preeclampsia. She has been induced at 38 or 39wks for HTN for her other 3 pregnancies. BPs have been stable, normal to mildly elevated, since her admission. Will plan induction of labor if elevated 24hr urine or d/c home with close f/u if normal. Objective Abnormal lab results 06/11/23 Range/Units 21:28 SARS-CoV-2 (PCR) POSITIVE A* (Negative) Temp Pulse Resp BP Pulse Ox 98.6 F 84 16 142/91 H 98 06/12/23 20:02 06/12/23 20:02 06/12/23 20:02 06/12/23 20:02 06/12/23 20:02 Laboratory Results WBC 11.57 10^3/uL (4.4-10.8) H 06/11/23 21:55 RBC 3.79 10^6/uL (3.93-5.22) L 06/11/23 21:55 Hgb 11.5 g/dL (11.2-15.7) 06/11/23 21:55 Hct 32.9 % (36.0-46.0) L 06/11/23 21:55 MCV 87 fL (80-95) 06/11/23 21:55 MCH 30.3 pg (27.0-33.0) 06/11/23 21:55 MCHC 35.0 % (32.0-36.0) 06/11/23 21:55 RDW 13.0 % (11.7-14.6) 06/11/23 21:55 Plt Count 219 10^3/uL (130-400) 06/11/23 21:55 MPV 10.5 fL (8.0-11.0) 06/11/23 21:55 Sodium 137 mmol/L (136-145) 06/11/23 21:55 Potassium 3.7 mmol/L (3.5-5.1) 06/11/23 21:55 Chloride 103 mmol/L (98-107) 06/11/23 21:55 Carbon Dioxide 22.4 mmol/L (21.0-32.0) 06/11/23 21:55 Anion Gap 11.6 mmol/L (3-11) H 06/11/23 21:55 BUN 15 mg/dL (7-18) 06/11/23 21:55 Creatinine 0.8 mg/dL (0.55-1.02) 06/11/23 21:55 Est GFR (CKD-EPI 2020) 96.06 (mL/min/1.73m2) 06/11/23 21:55 Glucose 84 mg/dL (74-106) 06/11/23 21:55 Calcium 9.5 mg/dL (8.5-10.1) 06/11/23 21:55 Total Bilirubin 0.3 mg/dL (0.2-1.0) 06/11/23 21:55 AST 18 U/L (15-37) 06/11/23 21:55 ALT 27 U/L (14-59) 06/11/23 21:55 Alkaline Phosphatase 149 U/L (46-116) H 06/11/23 21:55 Total Protein 6.8 g/dL (6.4-8.2) 06/11/23 21:55 Albumin 2.6 g/dL (3.4-5.0) L 06/11/23 21:55 Ur Random Creatinine 149.65 mg/dL 06/11/23 21:05 U Random Total Protein 32.1 mg/dL 06/11/23 21:05 U [place] Prot/Creat Ratio 0.21 06/11/23 21:05 COVID-19 Source Nasal/Nares 06/11/23 21:28 SARS-CoV-2 (PCR) POSITIVE (Negative) A* 06/11/23 21:28 Patient ABO/Rh O Positive 06/11/23 21:55 Antibody Screen NEGATIVE 06/11/23 21:55 Objective Narrative Objective Narrative: Still awaiting 24hr urine results due to lab order error. Subjective Interval history since last seen: Pt says she feels fine. She denies significant covid sxms. No headache/visual changes. She was hoping to get more stuff done at home before the baby comes. Results Hemoglobin/Hematocrit: Hgb 11.5 g/dL (11.2-15.7) 06/11/23 21:55 Hct 32.9 % (36.0-46.0) L 06/11/23 21:55 Abnormal Lab Findings: Abnormal Labs 06/11/23 06/11/23 21:28 21:55 WBC 11.57 H RBC 3.79 L Hct 32.9 L Anion Gap 11.6 H Alkaline Phosphatase 149 H Albumin 2.6 L SARS-CoV-2 (PCR) POSITIVE A*
[2023-06-12 23:07] LABS: PROTEIN 19.2 mg/dL (0.0-11.9)
[2023-06-12 23:08] LABS: Total Volume 1500 ml
--- NOTE | 2023-06-12 23:33 | DSE_ITS ---
Date of service: 06/12/23 Time of Service: 23:33 DS: Diagnosis Discharge Diagnosis (1) COVID-19: Status: Acute Asessment and Plan: Will need to reschedule her sono (tomorrow) until next week. She will be called with a new date tomorrow. (2) Chronic hypertension affecting : Status: Acute Asessment and Plan: BPs currently stable. No proteinuria. Asympotmatic. Will f/u for repeat BP check in the office on saturday. Likely induction next week after 37wks. Will call with any sooner concerns or changes in status. Discharge Plan Disposition Patient Disposition: Home Condition: Stable Discharge Details Reason For Visit: rule out preeclampsia Admit Date/Time: 06/11/23 23:07 Admit Provider: Jaye Marin Attending Provider: Jaye Marin Primary Care Provider: JASON MOHAMUD [facility] Course Hospital Course: Admitted at 36wks with elevated BPs. They stabilized after admission. Protein creatinine ratio was normal. She was observed for 24hrs to collect a 24hr urine protein and when that was normal she was discharged home with close follow up. Home Meds and New Rx's Prescriptions: No Action [id number] oil 400 mcg-35 mg -25 mg-5 mg tablet,chewable PO Hold Instructions: Pt Stopped/Never Started acetaminophen [Tylenol] 325 mg capsule 325 mg PO ONCE PRN aspirin 81 mg tablet,delayed release (DR/EC) 81 mg PO DAILY Qty: 90 4RF Rx Instructions: one tab daily, two tabs every other day ondansetron 4 mg tablet,disintegrating See Rx Instructions .ROUTE .COMPLEX Qty: 30 0RF Dose Instruction: dissolve 1 tablet ON THE TONGUE every 8 hours if needed for nausea and vomiting Rx Instructions: dissolve 1 tablet ON THE TONGUE every 8 hours if needed for nausea and vomiting labetalol 300 mg tablet See Rx Instructions .ROUTE .COMPLEX Qty: 180 0RF Dose Instruction: take 1 tablet by mouth twice a day Rx Instructions: take 1 tablet by mouth twice a day nifedipine 60 mg tablet extended release See Rx Instructions .ROUTE .COMPLEX Qty: 90 0RF Dose Instruction: take 1 tablet by mouth daily Rx Instructions: take 1 tablet by mouth daily Discharge Instructions Activity:: No strenuous activity Equipment/Supplies:: No Equipment Needed Diet:: As Tolerated Discharge Orders Discharge Orders: Discharge Order (Routine); Ordered 06/12/23 Ordered By: Taylor Enriquez DS: Summary Time Spent with Patient providing and/or coordinating discharge services: Less than 30 minutes Status at Discharge Functional status at discharge: independent ambulation Overall status at discharge: patient is back to baseline Mental Status: mental status grossly normal Speech and Movement: speech and movement normal Mood: congruent mood Affect: normal affect Exam Psych Mental Status: mental status grossly normal Speech and Movement: speech and movement normal Mood: congruent mood Affect: normal affect DS: Data Vitals/I&O Vitals and I&O: Vital Signs Temperature 98.6 F 06/12/23 20:02 Temperature 97.7 F 06/12/23 08:54 Temperature Source Oral 06/12/23 03:20 Temperature Source Oral 06/12/23 20:02 Pulse 85 06/12/23 23:03 Pulse 82 06/12/23 08:54 Pulse Rhythm Regular 06/12/23 21:16 Respiratory Rate 16 06/12/23 20:02 Respiratory Depth Normal 06/12/23 21:16 Blood Pressure 138/68 06/12/23 23:03 Blood Pressure 138/73 06/12/23 08:54 Blood Pressure Mean 104 06/12/23 23:01 Pulse Oximetry 98 06/12/23 20:02 Oxygen Delivery Method Room Air 06/12/23 05:07 Oxygen Flow Rate 0 06/12/23 05:07 Pain Level 0 06/12/23 05:07 Comment Patient reports no pain at this time 06/12/23 11:50 Intake & Output 06/11/23 06/12/23 06/12/23 23:59 11:59 23:59 Output Total 1050 / 1200 150 / 1200 Balance -1050 / -1200 -150 / -1200 Weight 234 lb Output: Urine 1050 / 1200 150 / 1200 Other: Urine Color Yellow Pale Yellow Urine Appearance Clear Clear Urine Odor None None Voiding Methods Toilet Toilet Data Completed and Pending Labs on day of discharge: Labs from last 24 hours 06/12/23 06/11/23 06/11/23 21:00 21:55 21:28 U Random Total Protein 19.2 H Urine Total Volume 1500 Ur Total Protein 24 Hr 288.0 H COVID-19 Source Nasal/Nares SARS-CoV-2 (PCR) POSITIVE A* Patient ABO/Rh O Positive Antibody Screen NEGATIVE 06/11/23 23:50 Vaginal/Rectal Group B Streptococcus Culture - Pending Preliminary micro results at discharge 06/11/23 23:50 Group B Streptococcus Culture - Pending Vaginal/Rectal PFSH All Active Problems (Updated 06/12/23 @ 06:56 by Jaye Marin DO) COVID-19 (Acute) Pre-eclampsia complicating hypertension (Acute) HGSIL on Pap smear of cervix (Acute) Family history of disorder of brain (Acute) pt's third son has agenesis of the corpus colosum Elderly multigravida, currently (Acute) Proteinuria affecting (Acute) BMI 45.0-49.9, adult (Acute) Chronic hypertension affecting (Acute) Hypertension (Chronic 07/07/15) Medical History (Updated 06/12/23 @ 06:56 by Jaye Marin DO) Hypokalemia Hypomagnesemia Kidney calculus Acute right flank pain Bile leak, postoperative Biliary colic Cholelithiasis Body mass index (BMI) of 40.0 to 49.9 06/25/2019 HPV test positive Positive HPV since 2008. Negative colpo directed biopsies. 12/30/18 Neg pap/Pos HPV 06/25/2019: ECC- Contraception (04/11/15) 06/25/2019 Depo-Provera times ~ 5 years after of youngest child. Patient counseled regarding Mirena IUD. ASCUS with positive high risk HPV (08/10/15) Surgical History S/P ERCP S/P laparoscopic cholecystectomy H/O wisdom tooth extraction Family History Son Developmental delay agenesis of the corpus collosum. Severe disabilities Social History (Updated 03/04/23 @ 10:45 by Taylor Enriquez MD) Smoking/Tobacco Use Status: Never Smoking risk assessment performed?: Yes Alcohol Intake: current Alcohol Intake frequency: holidays/special occasions only Alcohol type: other Drug use: Never Substance use type: does not use Household members: children and other Details: Not relationship. Youngest son is wheelchair bound Number of Children: 3 Communication Needs: None current occupation: 02/2023. Works at [employer] in [place] Sexually active: Yes Do you feel safe at home: Yes Do you feel safe in your relationship?: Yes Female Reproductive History Menstrual control method: progesterone injection History History 5 Para 3 Hx # Term Pregnancies 3 Multiple births 0 Hx # Pregnancies 0 Ectopic pregnancies 0 AB induced 0 Hx Number of Living Children 3 AB spontaneous 1 Past Pregnancies Del. Date GA/Weeks # Preg Succ Route Wgt Sex Labor Lgth Anesth esia Location Prov Complic 08/20/08 38 No Yes vaginal 6 lb Male [facility] -[facility] a 10/03/11 39 Yes Yes vaginal 7 lb 10 oz Male [facility] 08/13/14 38 No Yes vaginal 6 lb 10 oz Male [facility] and Delivery Date: 08/20/08 Last Updated by: Lexie Schmitt IOL for hypertension [facility] Delivery Date: 10/03/11 Last Updated by: Lexie Schmitt IOL at 39 wks for HTN, [facility] Delivery Date: 08/13/14 Last Updated by: Lexie Schmitt IOL for HTN, to [facility] after for 's agenesis of the corpus collosum, inherited from the father's family, is special needs. Hugh Time Spent with Patient Time Spent with Patient: <45 minutes Time was spent: preparing to see the patient(eg.review tests), obtaining and/or reviewing separately otained hiistory, ordering medications,tests, procedures, counseling the patient and care coordination
== END 2023-06-12 23:40 | disposition home or self-care (01) ==
LOC: OBS 23:28
PROVIDERS: Obstetrics & Gynecology; Admitting Provider Obstetrics & Gynecology; PCP Nurse Practitioner Family; Visit Provider Obstetrics & Gynecology
DX: O11.3 Pre-existing hypertension with pre-eclampsia, third trimester (principal); O09.523 Supervision of elderly multigravida, third trimester; Z3A.36 36 weeks gestation of pregnancy; O98.513 Other viral diseases complicating pregnancy, third trimester; U07.1 COVID-19
CPT/HCPCS: 36415; 80053; 85027; 86850; 86900; 86901; 87635; 59025; 81050; 82565; 84155; 84156; 87081; G0378

== ENCOUNTER 2023-06-14 07:09 | Outpatient (CLI) | payer MEDICAID, SELFPAY ==
[2023-06-14 13:44] VITALS: BP 131/71; PULSE 90; RESP 18; TEMP 36.9
--- NOTE | 2023-06-14 14:17 | W.OBNST ---
Date of service: 06/14/23 Time of Service: 14:17 NST Evaluation Reason for NST Reasons for Nonstress Test: CHRONIC HYPERTENSION Gestational Age Gestational Age in Weeks and Days: 36 Weeks and 5Days NST Information Date on Monitor: 06/14/23 Time on Monitor: 13:40 Date off Monitor: 06/14/23 Time off Monitor: 14:08 Total Time on Monitor: 28 NST Interventions: PO Hydration and Reposition Patient NST Evaluation Patient States Movement: Present FHR Baseline: 140 Variability: Moderate 6-25 bpm Accelerations: 15x15 Decelerations: None NST Results: Reactive Note Ultrasound Done: N/A. NST Note Note: Patient seen while on the center. heart tones are 140s, category 1, reactive NST. Stable blood pressure at 131/70. Patient will continue her home medication. Laboratory studies were drawn. Urine collected for urine protein creatinine ratio. Patient will continue to mask as she was COVID-positive at her last visit. The plan will be for repeat nonstress test and blood pressure check on 06/16/2023. Labor induction as scheduled 06/18/2023. All questions answered NST Reviewed and Verified by: Jaye Marin
[2023-06-14 14:33] LABS: Abs Immature Grans 0.08 10^3/uL (0.0-0.06); Absolute Basophil Count 0.03 10^3/uL (0.0-0.2); Absolute Lymphocyte Count 2.05 10^3/uL (1.2-3.4); Absolute Monocyte Count 0.69 10^3/uL (0.1-0.8); Absolute Neutrophil Count 7.21 10^3/uL (1.2-6.7); Basophils % 0.3; HCT 33.5 % (36.0-46.0); HGB 11.5 g/dL (11.2-15.7); Immature Grans % 0.8; Lymphocytes % 20.2; MCH 29.9 pg (27.0-33.0); MCHC 34.3 % (32.0-36.0); MCV 87 fL (80-95); MPV 10.3 fL (8.0-11.0); Monocytes % 6.8; Neutrophils % 70.9; Platelet Count 241 10^3/uL (130-400); RBC 3.85 10^6/uL (3.93-5.22); RDW 13.1 % (11.7-14.6); RDW-SD 40.9 fL; WBC 10.16 10^3/uL (4.4-10.8)
[2023-06-14 14:45] LABS: ALT 27 U/L (14-59); AST 15 U/L (15-37); Albumin 2.5 g/dL (3.4-5.0); Alkaline Phosphatase 139 U/L (46-116); Anion Gap 8.3 mmol/L (3-11); BUN 14 mg/dL (7-18); Bilirubin, Total 0.3 mg/dL (0.2-1.0); CO2 22.7 mmol/L (21.0-32.0); CREATININE 0.8 mg/dL (0.55-1.02); Calcium 8.6 mg/dL (8.5-10.1); Chloride 106 mmol/L (98-107); Estimated GFR 96.06 (mL/min/1.73m2); Glucose 95 mg/dL (74-106); Sodium 137 mmol/L (136-145); Total Protein 6.6 g/dL (6.4-8.2)
[2023-06-14 15:41] LABS: Prot/Crea Ur Ratio 0.18
== END 2023-06-14 14:20 | disposition home or self-care (01) ==
LOC: BCD 07:15 → OBS 13:35
PROVIDERS: PCP Nurse Practitioner Family; Visit Provider Obstetrics & Gynecology
DX: O10.013 Pre-existing essential hypertension complicating pregnancy, third trimester (principal); O09.513 Supervision of elderly primigravida, third trimester; Z3A.36 36 weeks gestation of pregnancy
CPT/HCPCS: 80053; 59025; 82565; 84156; 85025

== ENCOUNTER 2023-06-16 08:02 | Outpatient (CLI) | payer MEDICAID, SELFPAY ==
[2023-06-16 13:53] VITALS: BP 135/78; PULSE 90; RESP 16; TEMP 36.6; O2SAT 96
[2023-06-16 14:48] VITALS: BP 135/72; PULSE 90; TEMP 36.6
--- NOTE | 2023-06-16 20:04 | W.OBNST ---
Date of service: 06/16/23 Time of Service: 20:05 NST Evaluation Reason for NST Reasons for Nonstress Test: CHRONIC HYPERTENSION Gestational Age Gestational Age in Weeks and Days: 36 Weeks and 6Days Test and Monitor Explained Test/Monitor Explained: Test Explained, Monitor Explained and Patient Verbalized Understanding Vital Signs Blood Pressure: 135/72 Pulse: 90 Temperature: 97.9 F Urine Results Urine Protein: Negative Urine Ketones: Negative Urine Glucose: Negative Urine Blood: Negative NST Information Date on Monitor: 06/16/23 Time on Monitor: 13:20 Date off Monitor: 06/16/23 Time off Monitor: 14:40 Total Time on Monitor: 80 NST Interventions: PO Hydration, Reposition Patient and Notify Provider Contraction Frequency: Occasional NST Evaluation Patient States Movement: Present FHR Baseline: 145 Variability: Moderate 6-25 bpm Accelerations: 15x15 Decelerations: None NST Results: Reactive Note Ultrasound Done: N/A. NST Note Note: REactive NST, Category 1 strip NST Reviewed and Verified by: Jaye Marin
[2023-06-16 20:05] VITALS: BP 135/72; PULSE 90; TEMP 36.6
== END 2023-06-16 14:51 ==
LOC: BCD 08:03 → OBS 13:43
PROVIDERS: PCP Nurse Practitioner Family; Visit Provider Obstetrics & Gynecology
DX: O13.3 Gestational [pregnancy-induced] hypertension without significant proteinuria, third trimester (principal); O09.523 Supervision of elderly multigravida, third trimester; Z3A.36 36 weeks gestation of pregnancy
CPT/HCPCS: 59025

== ENCOUNTER 2023-06-18 06:05 | Inpatient (IN) | payer MEDICAID, SELFPAY ==
--- NOTE | 2023-06-16 20:13 | W.PM.OBHPL1 ---
Date of service: 06/16/23 Time of Service: 20:14 Assessment and Plan Assessment and plan (1) Elderly multigravida, currently : Status: Acute Assessment and plan: Plan labor induction with pitocin. GBS positive, will treat with PCN (2) BMI 45.0-49.9, adult: Status: Acute (3) Chronic hypertension affecting : Status: Acute Assessment and plan: continue home meds, check labs (4) Group B Streptococcus carrier, +RV culture, currently : Status: Acute OB-HPI Labor/Delivery History of Present Illness Reason for Visit: Induction Chief Complaint: Scheduled Induction of Labor Indication for Induction: Chronic Hypertension. YUE Calculator Estimated Delivery Date Method Current WG Current Estimate 07/08/23 LMP (Certain) 36w 6d Other Estimates 07/10/23 Ultrasound #1 36w 4d 07/05/23 Ultrasound #2 37w 2d History of Present Expected Delivery Route/Plan - MD FOB/not pt's partner - Wilber Garcia (8 other children, 1st child w/pt) Pt's boyfriend is Ashwin, he lives in [place], no children, moving to [place] soon-karen?? Currently in custodial - unlikely to be present for the delivery BG Specific Issues/Plan 1. Chronic hypertension & pre- proteinuria (>330 on 24 hr urine) - Labetalol 300 mg BID & Procardia XR 60 mg daily - Low dose ASA recommended 81mg/162mg alternating @ 12 wks - NSTs at 32wks 2. BMI 45 - Early GTT 99 3. AMA, desires cfDNA screen: low risk female, known CF negative. - MFM consult and mona sono 4. Pt's son has agenesis of the corpus colosum. - [facility] consult and mona sono. [place] [facility] [place]. Interested in [place], consent signed 05/28/23 6. BV+ and E-Coli UTI at initial OB: Flagyl 500 mg PO BID x7 days, MacroBid 100 mg PO BID x7 days 7. HGSIL with BV on pap - BV has been treated, colpo scheduled done 01/31/2023-unsatisfactory due to poor visualization and body habitus. Will need repeat colposcopic examination at 6-week . Narrative: Labor induction for chronic hypertension at 37 1/7 weeks Informed Consent Informed Consent: Induction of Labor Review of Systems All systems reviewed & are unremarkable except as noted in HPI and below Eyes Eyes: Reports system reviewed and no additional complaints, except as documented ENT Ears, Nose, Mouth, and Throat: Reports system reviewed and no additional complaints, except as documented Comments: some congestion post covid Cardiovascular Cardiovascular: Reports system reviewed and no additional complaints, except as documented Respiratory Respiratory: Reports system reviewed and no additional complaints, except as documented Gastrointestinal Gastrointestinal: Reports system reviewed and no additional complaints, except as documented Genitourinary Genitourinary: Reports system reviewed and no additional complaints, except as documented Musculoskeletal Musculoskeletal: Reports system reviewed and no additional complaints, except as documented Integumentary/Breasts Skin/Breast: Reports system reviewed and no additional complaints, except as documented PFSH All Active Problems (Updated 06/16/23 @ 20:21 by Jaye Marin DO) Group B Streptococcus carrier, +RV culture, currently (Acute) COVID-19 (Acute) 3rd trimester HGSIL on Pap smear of cervix (Acute) Family history of disorder of brain (Acute) pt's third son has agenesis of the corpus colosum Elderly multigravida, currently (Acute) Proteinuria affecting (Acute) BMI 45.0-49.9, adult (Acute) Chronic hypertension affecting (Acute) Medical History (Updated 06/16/23 @ 20:21 by Jaye Marin DO) Hypokalemia Hypomagnesemia Kidney calculus Acute right flank pain Bile leak, postoperative Biliary colic Cholelithiasis Body mass index (BMI) of 40.0 to 49.9 06/25/2019 HPV test positive Positive HPV since 2008. Negative colpo directed biopsies. 12/30/18 Neg pap/Pos HPV 06/25/2019: ECC- Contraception (04/11/15) 06/25/2019 Depo-Provera times ~ 5 years after of youngest child. Patient counseled regarding Mirena IUD. ASCUS with positive high risk HPV (08/10/15) Surgical History S/P ERCP S/P laparoscopic cholecystectomy H/O wisdom tooth extraction Family History Son Developmental delay agenesis of the corpus collosum. Severe disabilities Social History (Updated 03/04/23 @ 10:45 by Taylor Enriquez MD) Smoking/Tobacco Use Status: Never Smoking risk assessment performed?: Yes Alcohol Intake: current Alcohol Intake frequency: holidays/special occasions only Alcohol type: other Drug use: Never Substance use type: does not use Household members: children and other Details: Not relationship. Youngest son is wheelchair bound Number of Children: 3 Communication Needs: None current occupation: 02/2023. [place] [employer] [place] Sexually active: Yes Do you feel safe at home: Yes Do you feel safe in your relationship?: Yes Female Reproductive History Menstrual control method: progesterone injection History History 5 Para 3 Hx # Term Pregnancies 3 Multiple births 0 Hx # Pregnancies 0 Ectopic pregnancies 0 AB induced 0 Hx Number of Living Children 3 AB spontaneous 1 Past Pregnancies Del. Date GA/Weeks # Preg Succ Route Wgt Sex Labor Lgth Anesthesia Location Prov Complic 08/20/08 38 No Yes vaginal 6 lb Male [facility] 10/03/11 39 Yes Yes vaginal 7 lb 10 oz Male [facility] 08/13/14 38 No Yes vaginal 6 lb 10 oz Male [facility] Delivery Date: 08/20/08 Last Updated by: Lexie Schmitt IOL for hypertension [place] Delivery Date: 10/03/11 Last Updated by: Lexie Schmitt IOL at 39 wks for HTN, [facility] Delivery Date: 08/13/14 Last Updated by: Lexie Schmitt IOL for HTN, to [facility] after for 's agenesis of the corpus collosum, inherited from the father's family, is special needs. Hugh Meds Allergies and Home Medications Allergies Allergy/AdvReac Type Severity Reaction Status Date / Time No Known Drug Allergies Allergy Verified 05/13/23 11:26 Home Medications Medication Instructions Recorded Confirmed Type acetaminophen 325 mg capsule 325 mg PO ONCE PRN 01/04/22 06/14/23 History (Tylenol) TRN80-XD 400 mcg-om3 35 mg-dha 25 tab PO 11/21/22 06/14/23 History mg-epa 5 mg-fish oil chewable tablet aspirin 81 mg tablet,delayed 81 mg PO DAILY #90 tabs 12/24/22 06/14/23 Rx release ondansetron 4 mg disintegrating See Rx Instructions .Route 03/01/23 06/14/23 Rx tablet .COMPLEX #30 tabs labetalol 300 mg tablet See Rx Instructions .Route 05/01/23 06/14/23 Rx .COMPLEX #180 tabs nifedipine 60 mg tablet,extended See Rx Instructions .Route 05/10/23 06/14/23 Rx release .COMPLEX #90 tabs Exam Detailed Labor and Delivery Exam Pineda Score: Cervical Points Exam 0 1 2 3 Dilation Closed 1-2cm 3-4 cm 5-6cm Effacement 0-30% 40-50% 60-70% 80% Consistency Firm Medium Soft Station -3 -2 -1,0 +1,+2 Position Posterior Mid Anterior HEENT Exam HEENT Exam: Normal Neck Exam Neck Exam: Normal Respiratory Exam Respiratory Exam: Normal Cardiovascular Exam Cardiovascular Exam: Normal Abdominal Exam Abdominal Exam: Normal Extremities Exam Extremities Exam: Normal Back/Spine/Pelvis Exam Pelvis Adequate: Yes Neurological Exam Neurological Exam: Normal Psychiatric Exam Psychiatric Exam: Normal Risk Assessment Risk for Shoulder Dystocia Historical/Initial OB: NEGATIVE FOR: Pelvic Abnormality, Pre- BMI>30, Previous Shoulder Dystocia or Previous Macrosomia Risk for Pre-Eclampsia Date Initiated/Initials: Discussed with Shania 11/12/22 Yes, if one or more: POSTIVE FOR: Chronic HTN; NEGATIVE FOR: Hx Pre-E/Gest HTN, Multiple Gestation, Pre-gestational DM, Renal Disease, Systemic Lupus or APA Syndrome Yes, if 2 or more: POSITIVE FOR: Age>= 35 yrs and BMI>30; NEGATIVE FOR: Nulliparity, >10yr btwn pregnancies, ethinicty, Mother/Sister w/ Pre-E or Previous IUGR Risk for Post- Hemorrhage Initial: NEGATIVE FOR: Multiple Gestation, Previous PPH, Known Clotting Deficiency, Grand Multiparity or Anticoagulation Risks Reviewed Risks Reviewed Upon Admission: Yes
[2023-06-18] VITALS (20 sets, daily range): BP systolic 107–203; BP diastolic 63–95; PULSE 59–96; RESP 16; TEMP 36.4–37; O2SAT 97–98
[2023-06-18 07:00] LABS: HCT 34.1 % (36.0-46.0); HGB 11.9 g/dL (11.2-15.7); MCH 30.6 pg (27.0-33.0); MCHC 34.9 % (32.0-36.0); MCV 88 fL (80-95); MPV 10.6 fL (8.0-11.0); Platelet Count 275 10^3/uL (130-400); RBC 3.89 10^6/uL (3.93-5.22); RDW 12.9 % (11.7-14.6); RDW-SD 40.6 fL; WBC 10.82 10^3/uL (4.4-10.8)
[2023-06-18 07:16] LABS: ALT 22 U/L (14-59); AST 13 U/L (15-37); Albumin 2.5 g/dL (3.4-5.0); Alkaline Phosphatase 130 U/L (46-116); Anion Gap 12.2 mmol/L (3-11); BUN 14 mg/dL (7-18); Bilirubin, Total 0.3 mg/dL (0.2-1.0); CO2 20.8 mmol/L (21.0-32.0); CREATININE 0.9 mg/dL (0.55-1.02); Calcium 8.6 mg/dL (8.5-10.1); Chloride 104 mmol/L (98-107); Glucose 103 mg/dL (74-106); Potassium 3.6 mmol/L (3.5-5.1); Sodium 137 mmol/L (136-145); Total Protein 6.5 g/dL (6.4-8.2)
[2023-06-18] MEDS: Oxytocin/Normal Saline 30 UNIT/500 ML BAG 2 UNITS IV (07:38)
[2023-06-18] MEDS: Lactated Ringers 1,000 ML 125 ML IV (07:38)
[2023-06-18] MEDS: Normal Saline Flush 10 ML SYR IVP (07:38)
--- NOTE | 2023-06-18 07:46 | W.PM.OBNL1 ---
Date of service: 06/18/23 Time of Service: 07:46 Informed Consent Informed Consent: Induction of Labor Pelvic Exam Dilation: 2 Effacement (%): 60 station: -2 Cervix Position: mid Consistency: soft BISHOPS Score(Cervical Ripeness Score): 8 Contractions Monitor Mode: External Fetus A Heart Rate Baseline: 140 Presentation: Vertex Variability: Moderate (6-25 BPM) Categories: Category I FHR Rhythm: Regular Accelerations: Present Decelerations: None Assessment and Plan Assessment and plan (1) Chronic hypertension affecting : Status: Acute Assessment and plan: Stable BP this AM on Labetalol and Procardia. Labor induction starting today with Pitocin (2) Proteinuria affecting : Status: Acute (3) Group B Streptococcus carrier, +RV culture, currently : Status: Acute Assessment and plan: PCN for prophylaxis Objective Abnormal lab results 06/18/23 Range/Units 06:30 WBC 10.82 H (4.4-10.8) 10^3/uL RBC 3.89 L (3.93-5.22) 10^6/uL Hct 34.1 L (36.0-46.0) % Carbon Dioxide 20.8 L (21.0-32.0) mmol/L Anion Gap 12.2 H (3-11) mmol/L AST 13 L (15-37) U/L Alkaline Phosphatase 130 H (46-116) U/L Albumin 2.5 L (3.4-5.0) g/dL Temp Pulse Resp BP Pulse Ox 98.1 F 86 16 107/63 98 06/18/23 06:22 06/18/23 06:37 06/18/23 06:22 06/18/23 06:22 06/18/23 06:37 Laboratory Results WBC 10.82 10^3/uL (4.4-10.8) H 06/18/23 06:30 RBC 3.89 10^6/uL (3.93-5.22) L 06/18/23 06:30 Hgb 11.9 g/dL (11.2-15.7) 06/18/23 06:30 Hct 34.1 % (36.0-46.0) L 06/18/23 06:30 MCV 88 fL (80-95) 06/18/23 06:30 MCH 30.6 pg (27.0-33.0) 06/18/23 06:30 MCHC 34.9 % (32.0-36.0) 06/18/23 06:30 RDW 12.9 % (11.7-14.6) 06/18/23 06:30 Plt Count 275 10^3/uL (130-400) 06/18/23 06:30 MPV 10.6 fL (8.0-11.0) 06/18/23 06:30 Sodium 137 mmol/L (136-145) 06/18/23 06:30 Potassium 3.6 mmol/L (3.5-5.1) 06/18/23 06:30 Chloride 104 mmol/L (98-107) 06/18/23 06:30 Carbon Dioxide 20.8 mmol/L (21.0-32.0) L 06/18/23 06:30 Anion Gap 12.2 mmol/L (3-11) H 06/18/23 06:30 BUN 14 mg/dL (7-18) 06/18/23 06:30 Creatinine 0.9 mg/dL (0.55-1.02) 06/18/23 06:30 Est GFR (CKD-EPI 2020) 83.40 (mL/min/1.73m2) 06/18/23 06:30 Glucose 103 mg/dL (74-106) 06/18/23 06:30 Calcium 8.6 mg/dL (8.5-10.1) 06/18/23 06:30 Total Bilirubin 0.3 mg/dL (0.2-1.0) 06/18/23 06:30 AST 13 U/L (15-37) L 06/18/23 06:30 ALT 22 U/L (14-59) 06/18/23 06:30 Alkaline Phosphatase 130 U/L (46-116) H 06/18/23 06:30 Total Protein 6.5 g/dL (6.4-8.2) 06/18/23 06:30 Albumin 2.5 g/dL (3.4-5.0) L 06/18/23 06:30 Patient ABO/Rh O Positive 06/18/23 06:30 Antibody Screen NEGATIVE 06/18/23 06:30 Objective Narrative Objective Narrative: Doing well. BP stable today, no severe range BPS. Will begin pitocin induction of labor. AROM when able. Anticipate Subjective Interval history since last seen: Patient seen and examined, feeling well. No respiratory symptoms. Denies cephalgia, visual changes, epigastric pain. Baby moving and active Results Hemoglobin/Hematocrit: Hgb 11.9 g/dL (11.2-15.7) 06/18/23 06:30 Hct 34.1 % (36.0-46.0) L 06/18/23 06:30 Abnormal Lab Findings: Abnormal Labs 06/18/23 06:30 WBC 10.82 H RBC 3.89 L Hct 34.1 L Carbon Dioxide 20.8 L Anion Gap 12.2 H AST 13 L Alkaline Phosphatase 130 H Albumin 2.5 L
[2023-06-18] MEDS: Penicillin G POT. 5,000,000 UNITS in Normal Saline 100 ML 200 UNITS IVPB (08:11)
[2023-06-18] MEDS: Penicillin G POT. 3,000,000 UNITS in Normal Saline 50 ML 100 UNITS IVPB (11:44)
--- NOTE | 2023-06-18 13:25 | W.PM.OBNL1 ---
Date of service: 06/18/23 Time of Service: 13:25 Informed Consent Informed Consent: Induction of Labor Pelvic Exam Dilation: 2 Effacement (%): 60 station: -2 Position: OA Cervix Position: mid Consistency: soft Comments: Artificial rupture of membranes for clear fluid, copious. Fetus A Heart Rate Baseline: 145 Presentation: Vertex Variability: Moderate (6-25 BPM) Categories: Category I FHR Rhythm: Regular Accelerations: Present Decelerations: None Amniotic Membrane Status: Ruptured Assessment and Plan Assessment and plan (1) Chronic hypertension affecting : Status: Acute Assessment and plan: Induction of labor at 37 weeks and 1 day due to chronic hypertension with proteinuria. Currently on Pitocin augmentation with artificial rupture membranes for clear fluid. Status post 2 doses of penicillin for group B strep prophylaxis. Anticipate vaginal delivery. (2) Proteinuria affecting : Status: Acute (3) Elderly multigravida, currently : Status: Acute (4) Group B Streptococcus carrier, +RV culture, currently : Status: Acute Objective Abnormal lab results 06/18/23 Range/Units 06:30 WBC 10.82 H (4.4-10.8) 10^3/uL RBC 3.89 L (3.93-5.22) 10^6/uL Hct 34.1 L (36.0-46.0) % Carbon Dioxide 20.8 L (21.0-32.0) mmol/L Anion Gap 12.2 H (3-11) mmol/L AST 13 L (15-37) U/L Alkaline Phosphatase 130 H (46-116) U/L Albumin 2.5 L (3.4-5.0) g/dL Temp Pulse Resp BP Pulse Ox 98.4 F 83 16 142/86 H 98 06/18/23 11:43 06/18/23 13:18 06/18/23 06:22 06/18/23 13:18 06/18/23 06:37 Laboratory Results WBC 10.82 10^3/uL (4.4-10.8) H 06/18/23 06:30 RBC 3.89 10^6/uL (3.93-5.22) L 06/18/23 06:30 Hgb 11.9 g/dL (11.2-15.7) 06/18/23 06:30 Hct 34.1 % (36.0-46.0) L 06/18/23 06:30 MCV 88 fL (80-95) 06/18/23 06:30 MCH 30.6 pg (27.0-33.0) 06/18/23 06:30 MCHC 34.9 % (32.0-36.0) 06/18/23 06:30 RDW 12.9 % (11.7-14.6) 06/18/23 06:30 Plt Count 275 10^3/uL (130-400) 06/18/23 06:30 MPV 10.6 fL (8.0-11.0) 06/18/23 06:30 Sodium 137 mmol/L (136-145) 06/18/23 06:30 Potassium 3.6 mmol/L (3.5-5.1) 06/18/23 06:30 Chloride 104 mmol/L (98-107) 06/18/23 06:30 Carbon Dioxide 20.8 mmol/L (21.0-32.0) L 06/18/23 06:30 Anion Gap 12.2 mmol/L (3-11) H 06/18/23 06:30 BUN 14 mg/dL (7-18) 06/18/23 06:30 Creatinine 0.9 mg/dL (0.55-1.02) 06/18/23 06:30 Est GFR (CKD-EPI 2020) 83.40 (mL/min/1.73m2) 06/18/23 06:30 Glucose 103 mg/dL (74-106) 06/18/23 06:30 Calcium 8.6 mg/dL (8.5-10.1) 06/18/23 06:30 Total Bilirubin 0.3 mg/dL (0.2-1.0) 06/18/23 06:30 AST 13 U/L (15-37) L 06/18/23 06:30 ALT 22 U/L (14-59) 06/18/23 06:30 Alkaline Phosphatase 130 U/L (46-116) H 06/18/23 06:30 Total Protein 6.5 g/dL (6.4-8.2) 06/18/23 06:30 Albumin 2.5 g/dL (3.4-5.0) L 06/18/23 06:30 Patient ABO/Rh O Positive 06/18/23 06:30 Antibody Screen NEGATIVE 06/18/23 06:30 Subjective Interval history since last seen: Patient seen and examined. Feeling some contractions though not particular uncomfortable. Regular contractions every 2 to 3 minutes, Pitocin at 15. Category 1 heart rate tracing. Informed consent for artificial rupture obtained. Results Hemoglobin/Hematocrit: Hgb 11.9 g/dL (11.2-15.7) 06/18/23 06:30 Hct 34.1 % (36.0-46.0) L 06/18/23 06:30 Abnormal Lab Findings: Abnormal Labs 06/18/23 06:30 WBC 10.82 H RBC 3.89 L Hct 34.1 L Carbon Dioxide 20.8 L Anion Gap 12.2 H AST 13 L Alkaline Phosphatase 130 H Albumin 2.5 L
[2023-06-18] MEDS: Labetalol 100 MG TAB 300 MG PO (15:24)
--- NOTE | 2023-06-18 15:28 | NUR.NOTE ---
Nursing Note: Dr Marin at bedside coaching pt through contractions. BP 162/91. Pt denies symptoms. Labetalol given early with Dr Miguel approval.
--- NOTE | 2023-06-18 15:56 | PLAC_PTH ---
PATIENT: Shania Goff LOC: OBS U#:[id number] AGE/SX: 38/F ROOM: OBS.301 RE06/18/[address]: Jaye Marin DO : 1985 BED: A DIS: 06/20/2023 SPEC #: [id number] RECD: 06/19/23 12:35 STATUS: SOUT REQ #: [id number] PAOLA: 06/18/23 15:[address]: Jaye Marin DEPT: Surgical Specimen RECD BY: Claudia Phelan ENTERED: 06/19/23 12:35 SP TYPE: PLAC OTHR DR: JASON MOHAMUD NP Tissues: 1 - PLACENTA (3RD TRIMESTER) Procedures: GROSS AND MICRO LEVEL 5 Comments: [id number]
[2023-06-18] MEDS: Lidocaine 1% Multi-Dose 20 ML VIAL IJ (16:00)
--- NOTE | 2023-06-18 16:19 | W.OBDELIVERY ---
Date of service: 06/18/23 Time of Service: 16:19 OB Labor/ Delivery Information Baby A Delivery Delivery Method: Spontaneaous Presentation: Vertex Cephalic Position: Vertex Vertex Position: Left Occipital Anterior Cord Description-Baby A: 3 Vessels Amniotic Fluid: Clear Estimated Blood Loss: 310 Delivery Outcome: Liveborn Complications: none Infant Transferred: Remains with Mother Note: Patient presented this morning for labor induction at 37 weeks and 1 day due to chronic hypertension with occasional severe range blood pressures. She is known to be group B strep positive. She received 2 doses of penicillin prior to rupture of membranes. She had Pitocin augmentation of her labor with subsequent artificial rupture of membranes for clear fluid. She went on to be completely dilated and the vertex occiput anterior position she pushed the vertex over intact perineum. There is no evidence of nuchal cord. Shoulders followed with ease. Three-vessel cord was noted clamped x 2 and cut after delayed cord clamping of approximately 60 seconds. Baby was placed in the skin on the mother's chest. Cord blood sample was obtained and was sent spontaneously and was noted to be intact. On inspection of the perineum, and vaginal vault there was a small, first-degree perineal laceration which was repaired with a single stitch of 3-0 Vicryl after infiltration of 1% lidocaine. Patient tolerated this without difficulty. Fundal massage and Pitocin was used for uterine tonicity. Quantitative blood loss was 310 mL. Baby are stable and doing well in the immediate . As of note, patient did have elevated blood pressures during the second stage which have significantly improved after delivery, and with her afternoon dose of 300 mg of oral labetalol. Will continue to monitor her blood pressures closely. Providers Doctor: Jaye Marin Nurse: Laura Ruelas Nurse: Ayah Maddox Labor/Delivery Information Number of Babies in Womb: 1 Reason Steroids Not Administered: N/A Group Beta Strep: Positive Antibiotics Administered: Yes Number of Doses of Antibiotics: 2 Rubella Status: Immune Blood Type: O+ Varicella Immunity: Immune Shoulder Dystocia: No Stages of Labor Complete Dilatation Date: 06/18/23 ROM Baby A: 06/18/23 ROM Baby A: 13:14 ROM Total Time- Baby A: [id number] Delivery Date-Baby A: 06/18/23 Delivery Time-Baby A: 15:51 Placenta Delivery Date-Baby A: 06/18/23 Placenta Delivery Time-Baby A: 15:56 Labor-Stage 3 Duration: 5 minutes Placenta Status: Delivered Baby A Infant Gender: Female Gestational Status: Early Term (37-38.6 wks) Gestational Age in Weeks/Days: 37 Weeks and 1 Days Score-1 Minute Interval(Baby A) Heart Rate-1 minute: 100 BPM or Greater Respiratory Effort- 1 minute: Spontaneous/Strong Cry Muscle Tone-1 minute: Active Movement Reflex Response-1 minute: Prompt Response Color-1 minute: Pallor or Cyanosis Total Score-1 minute: 8 Score-5 Minute Interval(Baby A) Heart Rate- 5 minute: 100 BPM or Greater Respiratory Effort-5 minute: Spontaneous/Strong Cry Muscle Tone-5 minute: Active Movement Reflex Response-5 minute: Prompt Response Color-5 minute: Bluish Hands or Feet Total Score- 5 minute: 9
[2023-06-18] MEDS: Ibuprofen 600 MG TAB PO ×2 (16:37→22:36)
[2023-06-18] MEDS: Acetaminophen 325 MG TAB 650 MG PO ×2 (16:37→20:35)
[2023-06-18] MEDS: Docusate Sodium 100 MG CAP PO (22:35)
[2023-06-18] MEDS: Dibucaine 1% 28 GM TUBE TP (22:36)
[2023-06-18] MEDS: Hamamelis Leaf/Glycerin 100 EACH BOX PR (22:37)
[2023-06-19] MEDS: Acetaminophen 325 MG TAB 650 MG PO ×2 (00:24→08:33)
[2023-06-19 02:30] VITALS: BP 131/68
[2023-06-19] MEDS: Ibuprofen 600 MG TAB PO ×3 (03:44→19:40)
[2023-06-19 06:50] LABS: HCT 28.8 % (36.0-46.0); HGB 10.1 g/dL (11.2-15.7); MCH 30.7 pg (27.0-33.0); MCHC 35.1 % (32.0-36.0); MCV 88 fL (80-95); MPV 10.2 fL (8.0-11.0); Platelet Count 203 10^3/uL (130-400); RBC 3.29 10^6/uL (3.93-5.22); RDW 12.8 % (11.7-14.6); RDW-SD 40.4 fL; WBC 12.49 10^3/uL (4.4-10.8)
--- NOTE | 2023-06-19 07:43 | W.PM.OBPNV1 ---
Date of service: 07/10/23 Time of Service: 07:43 Assessment and Plan Assessment and plan (1) (normal spontaneous vaginal delivery): Status: Acute Assessment and plan: Postoperative day 1 status post vaginal delivery after labor induction due to chronic hypertension at 37 weeks with occasional elevated blood pressure into the severe range. No signs of preeclampsia. Normal care. Continue oral antihypertensives. Monitor blood pressures. Anticipate discharge 06/20/2023. (2) Chronic hypertension affecting : Status: Acute Subjective Subjective Interval history: Patient seen and examined this morning. Doing well. Blood pressures are stable. She is working on breast-feeding. Her complaint is that of fatigue. I would anticipate discharge home tomorrow, if stable, and nursing well. Continue to monitor blood pressures. All questions answered. baby status: Doing well and Strong Bonding Observed feeding status: Exclusively breast feeding Exam Physical Exam Vital signs: Temp Pulse Resp BP Pulse Ox 98.6 F 82 16 131/68 98 06/18/23 19:30 06/18/23 19:30 06/18/23 19:30 06/19/23 02:30 06/18/23 19:30 Vital Signs Reviewed: Yes Constitutional Constitutional: no acute distress HEENT Exam HEENT Exam: Normal Neck Exam Neck Exam: Normal Respiratory Exam Respiratory Exam: Normal Cardiovascular Exam Cardiovascular Exam: Normal Abdominal Exam Comments: Soft, nontender Fundal Exam Fundus: Below Umbilicus and Firm Extremities Exam Extremity Exam: Normal; negative Calf Tenderness Neurological Exam Neurological Exam: Normal Psychiatric Exam Psychiatric Exam: Normal Results Hemoglobin/Hematocrit: Hgb 10.1 g/dL (11.2-15.7) L 06/19/23 06:40 Hct 28.8 % (36.0-46.0) L 06/19/23 06:40 Abnormal Lab Findings: Abnormal Labs 06/18/23 06/19/23 06:30 06:40 WBC 10.82 H 12.49 H RBC 3.89 L 3.29 L Hgb 10.1 L Hct 34.1 L 28.8 L Carbon Dioxide 20.8 L Anion Gap 12.2 H AST 13 L Alkaline Phosphatase 130 H Albumin 2.5 L
[2023-06-19] MEDS: NIFEdipine-CR 30 MG TABCR 60 MG PO (07:54)
[2023-06-19 07:55] VITALS: BP 152/89; PULSE 96; RESP 16; TEMP 36.3; O2SAT 100
[2023-06-19] MEDS: Labetalol 100 MG TAB 300 MG PO ×2 (07:55→19:39)
[2023-06-19] MEDS: Normal Saline Flush 10 ML SYR IVP (07:56)
[2023-06-19] MEDS: Docusate Sodium 100 MG CAP PO (08:33)
[2023-06-19 11:30] VITALS: BP 133/77; PULSE 89; RESP 16; TEMP 36.5; O2SAT 96
[2023-06-19 19:45] VITALS: BP 139/74; PULSE 71; RESP 16; TEMP 36.8
[2023-06-20] MEDS: Ibuprofen 600 MG TAB PO ×2 (02:43→12:26)
[2023-06-20 05:13] VITALS: BP 125/66; PULSE 72
[2023-06-20 08:10] VITALS: BP 139/82; PULSE 77; RESP 16; TEMP 36.4; O2SAT 96
[2023-06-20] MEDS: NIFEdipine-CR 30 MG TABCR 60 MG PO (08:10)
[2023-06-20] MEDS: Labetalol 100 MG TAB 300 MG PO (08:10)
[2023-06-20 08:32] VITALS: BP 101/57; PULSE 57
--- NOTE | 2023-06-20 09:10 | W.PM.OBPNV1 ---
Date of service: 06/20/23 Time of Service: 09:11 Assessment and Plan Assessment and plan (1) (normal spontaneous vaginal delivery): Status: Acute Assessment and plan: Post day #2, doing well. D/C home today. Follow up for BP check on Saturday (2) Chronic hypertension affecting : Status: Acute Assessment and plan: Stable blood pressures. Continue home meds Subjective Subjective Interval history: Patient seen, doing well. Feeding now well Patient's Mood: Appropriate baby status: Doing well and Nursing well feeding status: Exclusively breast feeding Exam Physical Exam Vital signs: Temp Pulse Resp BP Pulse Ox 98.2 F 57 L 16 101/57 L 96 06/19/23 19:45 06/20/23 08:32 06/19/23 19:45 06/20/23 08:32 06/19/23 11:30 Vital Signs Reviewed: Yes Notable Details: Stavle blood pressures Constitutional Constitutional: no acute distress HEENT Exam HEENT Exam: Normal Respiratory Exam Respiratory Exam: Normal Cardiovascular Exam Cardiovascular Exam: Normal Abdominal Exam Comments: Normal, no pain Fundal Exam Fundus: Below Umbilicus and Firm Extremities Exam Extremity Exam: Normal; negative Calf Tenderness Neurological Exam Neurological Exam: Normal Psychiatric Exam Psychiatric Exam: Normal Results Hemoglobin/Hematocrit: Hgb 10.1 g/dL (11.2-15.7) L 06/19/23 06:40 Hct 28.8 % (36.0-46.0) L 06/19/23 06:40 Abnormal Lab Findings: Abnormal Labs 06/18/23 06/19/23 06:30 06:40 WBC 10.82 H 12.49 H RBC 3.89 L 3.29 L Hgb 10.1 L Hct 34.1 L 28.8 L Carbon Dioxide 20.8 L Anion Gap 12.2 H AST 13 L Alkaline Phosphatase 130 H Albumin 2.5 L
--- NOTE | 2023-06-20 09:36 | W.PM.OBDISCH ---
Date of service: 06/20/23 Time of Service: 09:37 DS: Diagnosis Discharge Diagnosis (1) (normal spontaneous vaginal delivery): Status: Acute Asessment and Plan: D/C for, Follow up for BP check in 24-48 hours (2) Chronic hypertension affecting : Status: Acute Asessment and Plan: continue home medications Discharge Plan Disposition Patient Disposition: Home Condition: Good Discharge Details Reason For Visit: at 37 1/7 weeks, Chronic HTN Admit Date/Time: 06/18/23 06:05 Admit Provider: Jaye Marin Attending Provider: Jaye Marin Primary Care Provider: ONE[place],[facility] Course Hospital Course: Patient presented for labor induction at 37 1/7 due to chronic HTN with occaisional elevation in the severe range, along with chronic protienuria Home Meds and New Rx's Prescriptions: Continued [id number]-casq oil 400 mcg-35 mg -25 mg-5 mg tablet,chewable PO Hold Instructions: Pt Stopped/Never Started acetaminophen [Tylenol] 325 mg capsule 325 mg PO ONCE PRN ondansetron 4 mg tablet,disintegrating See Rx Instructions .ROUTE .COMPLEX Qty: 30 0RF Dose Instruction: dissolve 1 tablet ON THE TONGUE every 8 hours if needed for nausea and vomiting Rx Instructions: dissolve 1 tablet ON THE TONGUE every 8 hours if needed for nausea and vomiting labetalol 300 mg tablet See Rx Instructions .ROUTE .COMPLEX Qty: 180 0RF Dose Instruction: take 1 tablet by mouth twice a day Rx Instructions: take 1 tablet by mouth twice a day nifedipine 60 mg tablet extended release See Rx Instructions .ROUTE .COMPLEX Qty: 90 0RF Dose Instruction: take 1 tablet by mouth daily Rx Instructions: take 1 tablet by mouth daily Discontinued aspirin 81 mg tablet,delayed release (DR/EC) 81 mg PO DAILY Qty: 90 4RF Rx Instructions: one tab daily, two tabs every other day Discharge Instructions Stand Alone Forms: BC Instructions, BC Post Vaginal Deliver Activity:: Activity as Tolerated Equipment/Supplies:: No Equipment Needed Diet:: As Tolerated Discharge Orders Discharge Orders: Discharge Order (Routine); Ordered 06/20/23 Ordered By: Jaye Marin OB:DS Summary Summary Vaginal Delivery Method: Spontaneaous Laceration Description: Perineal Laceration Extension: First Degree Contraception Discussed Contraception Discussed: Yes, Infant Gender-Baby A: Female weight: 7 lb 10.753 oz Status at Discharge Functional status at discharge: independent ambulation Overall status at discharge: patient is progressing back to baseline Mental Status: mental status grossly normal Speech and Movement: speech and movement normal Mood: congruent mood Affect: normal affect Exam Physical Exam Vital signs: Temp Pulse Resp BP Pulse Ox 98.2 F 57 L 16 101/57 L 96 06/19/23 19:45 06/20/23 08:32 06/19/23 19:45 06/20/23 08:32 06/19/23 11:30 Narrative: See exam dated 06/20/2023 PFSH All Active Problems (Updated 06/18/23 @ 16:24 by Jaye Marin DO) (normal spontaneous vaginal delivery) (Acute) Induction of labor at 37 weeks and 1 day produced a normal spontaneous vaginal delivery of a viable female infant on 06/18/2023.[place] Group B Streptococcus carrier, +RV culture, currently (Acute) COVID-19 (Acute) 3rd trimester 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 Negative colpo directed biopsies. 12/30/18 Neg pap/Pos HPV 06/25/2019: ECC- Contraception (04/11/15) 06/25/2019 Depo-Provera times ~ 5 years after of youngest child. Patient counseled regarding Mirena IUD. ASCUS with positive high risk HPV (08/10/15) Surgical History S/P ERCP S/P laparoscopic cholecystectomy H/O wisdom tooth extraction Family History Son Developmental delay agenesis of the corpus collosum. Severe disabilities Social History (Updated 03/04/23 @ 10:45 by Taylor Enriquez MD) Smoking/Tobacco Use Status: Never Smoking risk assessment performed?: Yes Alcohol Intake: current Alcohol Intake frequency: holidays/special occasions only Alcohol type: other Drug use: Never Substance use type: does not use Household members: children and other Details: Not relationship. Youngest son is wheelchair bound Housing: house Number of Children: 3 Communication Needs: None current occupation: 02/2023. Works at [employer] [place] Sexually active: Yes Do you feel safe at home: Yes Do you feel safe in your relationship?: Yes Female Reproductive History Menstrual control method: progesterone injection History History 5 Para 3 Hx # Term Pregnancies 3 Multiple births 0 Hx # Pregnancies 0 Ectopic pregnancies 0 AB induced 0 Hx Number of Living Children 3 AB spontaneous 1 Past Pregnancies Del. Date GA/Weeks # Preg Succ Route Wgt Sex Labor Lgth Anesthesia Location Prov Complic 08/20/08 38 No Yes vaginal 6 lb Male [facility] 10/03/11 39 Yes Yes vaginal 7 lb 10 oz Male [facility] 08/13/14 38 No Yes vaginal 6 lb 10 oz Male [place] Delivery Date: 08/20/08 Last Updated by: Lexie Schmitt IOL for hypertension [place] Delivery Date: 10/03/11 Last Updated by: Lexie Schmitt IOL at 39 wks for HTN, [place] Delivery Date: 08/13/14 Last Updated by: Lexie Schmitt IOL for HTN, to [facility] after for 's agenesis of the corpus collosum, inherited from the father's family, is special needs. Hugh DS: Data Vitals/I&O Vitals and I&O: Vital Signs Temperature 98.2 F 06/19/23 19:45 Temperature Source Oral 06/19/23 19:45 Pulse 57 L 06/20/23 08:32 Pulse Rhythm Regular 06/19/23 19:47 Respiratory Rate 16 06/19/23 19:45 Respiratory Depth Normal 06/18/23 19:30 Blood Pressure 101/57 L 06/20/23 08:32 Blood Pressure Mean 95 06/19/23 19:45 Pulse Oximetry 96 06/19/23 11:30 Oxygen Delivery Method Room Air 06/18/23 06:06 Oxygen Flow Rate 0 06/18/23 06:06 Pain Level 2 06/20/23 03:43 Comment gave scheduled Labetalol and Nifedipine 06/19/23 07:55 Intake & Output 06/19/23 06/19/23 06/20/23 11:59 23:59 11:59 Intake Total Balance Intake: IV Other: Urine Color Pale
[2023-06-20] MEDS: Acetaminophen 325 MG TAB 650 MG PO (10:15)
[2023-06-20 12:20] VITALS: BP 144/81; PULSE 74; RESP 16; TEMP 36.4; O2SAT 97
== END 2023-06-20 15:30 | disposition home or self-care (01) | DRG 807 ==
PROVIDERS: Admitting Provider Obstetrics & Gynecology; PCP Nurse Practitioner Family; Visit Provider Obstetrics & Gynecology
DX: Z37.0 Single live birth; O99.824 Streptococcus B carrier state complicating childbirth; O11.4 Pre-existing hypertension with pre-eclampsia, complicating childbirth; Z3A.37 37 weeks gestation of pregnancy; O70.0 First degree perineal laceration during delivery
CPT/HCPCS: 36415; 80053; 85027; 86850; 86900; 86901; 88307; J2540

== ENCOUNTER 2023-06-22 11:53 | Outpatient (CLI) | payer MEDICAID, SELFPAY ==
--- NOTE | 2023-06-22 12:35 | NUR.NOTE ---
Nursing Note: At approximately 1155 I noticed a possible contraction on the monitor, I went into assess patient and ask more in depth about contractions. Patient fell asleep mid conversation, and then I woke the patient up. Patient reported she has been feeling cramping since this morning after already being asked upon arrival and didn't anything at that time. Patient reported no vaginal bleeding or discharge. Taylor Enriquez MD notified and coming to assess patient.
[2023-06-22 13:03] VITALS: BP 121/59; PULSE 95
[2023-06-23 22:06] VITALS: BP 147/89; PULSE 97
== END 2023-06-22 13:20 | disposition home or self-care (01) ==
LOC: BCD 11:55 → OBS 12:25
PROVIDERS: PCP Nurse Practitioner Family; Visit Provider Obstetrics & Gynecology
DX: O10.93 Unspecified pre-existing hypertension complicating the puerperium (principal)
CPT/HCPCS: 99211

== ENCOUNTER 2023-07-25 13:53 | Outpatient (REF) | payer MEDICAID, SELFPAY ==
--- NOTE | 2023-07-25 13:00 | ENDO_PTH ---
PATIENT: Shania Goff LOC: [facility] U#:[id number] AGE/SX: 38/F ROOM: RE07/25/[address]: Isabelle Barrera : 1985 BED: DIS: 07/25/2023 SPEC #: [id number] RECD: 07/25/23 15:50 STATUS: EMILI RELili #: [id number] PAOLA: 07/25/23 13:[address]: Isabelle Barrera DEPT: Surgical Specimen RECD BY: Claudia Phelan ENTERED: 07/25/23 15:51 SP TYPE: Endo OTHR DR: JASON MOHAMUD, TI Tissues: 1 - ENDOCERVICAL BX/CURRETTE 2 - CERVICAL BIOPSY Procedures: GROSS AND MICRO LEVEL 4 Comments: [id number]
== END 2023-07-25 13:54 | disposition home or self-care (01) ==
LOC: LBN 13:53
PROVIDERS: PCP Nurse Practitioner Family; Visit Provider Obstetrics & Gynecology Gynecology
DX: R87.619 Unspecified abnormal cytological findings in specimens from cervix uteri (principal)
CPT/HCPCS: 88305

== ENCOUNTER 2023-07-29 04:44 | Outpatient (CLI) | payer MEDICAID, SELFPAY ==
[2023-07-29 10:43] LABS: Abs Immature Grans 0.03 10^3/uL (0.0-0.06); Absolute Basophil Count 0.04 10^3/uL (0.0-0.2); Absolute Eosinophil Count 0.26 10^3/uL (0.0-0.7); Absolute Lymphocyte Count 2.52 10^3/uL (1.2-3.4); Absolute Monocyte Count 0.38 10^3/uL (0.1-0.8); Absolute Neutrophil Count 4.89 10^3/uL (1.2-6.7); Basophils % 0.5; Eosinophils % 3.2; HCT 37.2 % (36.0-46.0); HGB 12.4 g/dL (11.2-15.7); Immature Grans % 0.4; MCH 29.3 pg (27.0-33.0); MCHC 33.3 % (32.0-36.0); MCV 88 fL (80-95); MPV 9.9 fL (8.0-11.0); Monocytes % 4.7; Neutrophils % 60.2; Platelet Count 226 10^3/uL (130-400); RBC 4.23 10^6/uL (3.93-5.22); RDW 12.1 % (11.7-14.6); RDW-SD 38.9 fL; WBC 8.12 10^3/uL (4.4-10.8)
== END 2023-07-29 04:45 | disposition home or self-care (01) ==
LOC: LBO 04:44
PROVIDERS: PCP Nurse Practitioner Family; Visit Provider Obstetrics & Gynecology Gynecology
DX: Z01.818 Encounter for other preprocedural examination (principal)
CPT/HCPCS: 36415; 86850; 86900; 86901; 85025

== ENCOUNTER 2023-07-31 06:12 | Day surgery (SDC) | payer MEDICAID, SELFPAY ==
[2023-07-31 06:15] VITALS: BP 134/82; PULSE 76; RESP 18; TEMP 36.6; O2SAT 98
--- NOTE | 2023-07-31 06:19 | W.ANESPRE ---
General Info Date of Service Date Performed: 07/31/23 Height: 5 ft 2 in Weight: 98.94 kg Body Mass Index (BMI): 39.9 Surgical Procedure: Operation Date: 07/31/23 07:40 Proposed Procedure Side Surgeon p Salpingectomy Laparoscopic Bilateral Isabelle Barrera MD Meds Allergies and Home Medications Allergies Allergy/AdvReac Type Severity Reaction Status Date / Time No Known Drug Allergies Allergy Verified 07/31/23 06:25 Home Medication Medication Instructions Recorded acetaminophen 325 mg capsule 325 mg PO ONCE PRN 01/04/22 (Tylenol) labetalol 200 mg tablet 200 mg PO BID #60 tabs 07/29/23 nifedipine 60 mg tablet,extended 60 mg PO DAILY #90 tabs 07/29/23 release oxycodone-acetaminophen 5 mg-325 1 tab PO Q6H PRN pain #5 tabs 07/29/23 mg tablet (Percocet) Current Visit Medications: Current Medications Generic Name Dose Route Start Last Admin Trade Name Freq PRN Reason Stop Dose Admin Ringer's Solution 1,000 mls @ 80 mls/hr 07/31/23 06:00 IV 07/31/23 23:59 INFUSION PEGGY IV Miscellaneous Supplies 1 each 07/31/23 06:00 Iv Access IV 07/31/23 23:59 DIRECTED PEGGY Sodium Chloride 0 ml 07/31/23 06:00 Normal Saline Flush 10 Ml Syr IV 07/31/23 23:59 PRN PRN Sodium Chloride 0 ml 07/31/23 06:00 Normal Saline 10 Ml Vial IJ 07/31/23 23:59 DIRECTED PRN Sterile Water 0 ml 07/31/23 06:00 Water,Injection,Sterile 10 Ml Vial IJ 07/31/23 23:59 DIRECTED PRN PFSH Active Problems Active Problems: Problem Status Onset Code Preoperative general physical examination Z01.818 Hx of colposcopy with cervical biopsy Z98.890 (normal spontaneous vaginal delivery) O80 HGSIL on Pap smear of cervix R87.613 Family history of disorder of brain Z82.0 Proteinuria affecting O12.10 BMI 45.0-49.9, adult Z68.42 Chronic hypertension affecting O10.919 Medical History Medical History Elderly multigravida, currently Hypokalemia Hypomagnesemia Kidney calculus Acute right flank pain Bile leak, postoperative Biliary colic Cholelithiasis Body mass index (BMI) of 40.0 to 49.9 06/25/2019 HPV test positive Positive HPV since 2008. Negative colpo directed biopsies. 12/30/18 Neg pap/Pos HPV 06/25/2019: ECC- Contraception (04/11/15) 06/25/2019 Depo-Provera times ~ 5 years after of youngest child. Patient counseled regarding Mirena IUD. ASCUS with positive high risk HPV (08/10/15) Surgical History Surgical History S/P ERCP S/P laparoscopic cholecystectomy H/O wisdom tooth extraction Tobacco Smoking/Tobacco Use Status: Never Passive smoking exposure: No Alcohol Alcohol Intake: never Substance Use Substance use: Never Substance use type: does not use Prental History History 5 Para 4 Hx # Term Pregnancies 4 Multiple births 0 Hx # Pregnancies 0 Ectopic pregnancies 0 AB induced 0 Hx Number of Living Children 4 AB spontaneous 1 Past Pregnancies Del. Date GA/Weeks # Preg Succ Route Wgt Sex Labor Lgth Anesthesia Location Prov [facility] 08/20/08 38 No Yes vaginal 2721.554 g Male [facility] 10/03/11 39 Yes Yes vaginal 3458.642 g Male [facility] 08/13/14 38 No Yes vaginal 3005.049 g Male [place] 06/18/23 37 No Yes vaginal 3486.991 g Female [facility] Delivery Date: 08/20/08 Last Updated by: Lexie Schmitt IOL for hypertension [place] Delivery Date: 10/03/11 Last Updated by: Lexie Schmitt IOL at 39 wks for HTN, [facility] Delivery Date: 08/13/14 Last Updated by: Lexie Schmitt IOL for HTN, to [facility] after for infant's agenesis of the corpus collosum, inherited from the father's family, is special needs. Hugh Vital Signs and Lab Results Vital Signs Most Recent Vital Signs in EMR: Temp Pulse Resp BP Pulse Ox 36.6 C 76 18 134/82 98 07/31/23 06:15 07/31/23 06:15 07/31/23 06:15 07/31/23 06:15 07/31/23 06:15 Lab Results Blood Type / Crossmatch: Patient ABO/Rh O Positive 07/29/23 Antibody Screen NEGATIVE 07/29/23 Complete Blood Count: White Blood Count 8.12 10^3/uL (4.4-10.8) 07/29/23 10:25 Red Blood Count 4.23 10^6/uL (3.93-5.22) 07/29/23 10:25 Hemoglobin 12.4 g/dL (11.2-15.7) 07/29/23 10:25 Hematocrit 37.2 % (36.0-46.0) 07/29/23 10:25 Platelet Count 226 10^3/uL (130-400) 07/29/23 10:25 Complete Metabolic Panel: No Data to Display Liver Function Panel: No Data to Display Coagulation Panel: No Data to Display Cardiac Panel: No Data to Display Arterial Blood Gas: No Data to Display Venous Blood Gas: No Data to Display Pancreas Panel: No Data to Display Thyroid Panel: No Data to Display Infectious Disease: No Data to Display Blood Cultures: No Data to Display Toxicology Panel: No Data to Display Panel: No Data to Display Anesthesia Assessment and Plan Anesthesia History Personal History: No History of Anesthesia Complications Family History: No Family History of Anesthesia Complications Exercise Tolerance Exercise Tolerance: Metabolic Equivalents>4 Cardiac & Pulmonary Exam Cardiac Exam: Normal S1/S2 Heart Sounds Pulmonary Exam: Clear Bilateral Breath Sounds Implantable Cardiac Device Does patient have a Pacemaker or an ICD?: No Airway Exam Known Difficult Airway: No Mallampati Class: 2 Mouth Opening: Narrow (< 3cm) Thyromental Distance: Less than 3 cm Neck Range of Motion: Known Cervical Instability or radiculopathy Neck Circumference: Normal Teeth Condition: Normal Dentition ASA Classification ASA Score: ASA 3 Emergency Case?: No NPO Status NPO Status: NPO Clears >2 hours, Solids >8 hours Status Status: Negative HCG Anesthesia Plan Resuscitation Status: Full Code Anesthesia Technique: General Anesthesia Airway Planned: Endotracheal Tube Monitors Used: Standard Monitors Preoperative Comments:: 38 yo female for slap salping. Sig PMHx: HTN (two agents), elevated BMI, never smoker. Previous Anes: - cysto, prop, natural airway, no issues. - lap joan, easy mask, srinivasan 2 grade 1. took a long time to wake she states, ended up with nausea/vomiting.
[2023-07-31 06:30] VITALS: BMI 39.9
[2023-07-31] MEDS: Lactated Ringers 1,000 ML 80 ML IV (07:18)
== END 2023-07-31 09:16 | disposition home or self-care (01) ==
LOC: SUR 06:12
PROVIDERS: PCP Nurse Practitioner Family; Visit Provider Obstetrics & Gynecology Gynecology
DX: Z53.8 Procedure and treatment not carried out for other reasons (principal)
CPT/HCPCS: 81025; J0131; J0665; J1100; J2250; J2405; J2704; J3475

== ENCOUNTER 2023-09-10 03:18 | Outpatient (CLI) | payer MEDICAID, SELFPAY ==
[2023-09-10 16:29] LABS: HCT 35.6 % (36.0-46.0); HGB 12.2 g/dL (11.2-15.7); MCHC 34.3 % (32.0-36.0); MCV 85 fL (80-95); MPV 10.1 fL (8.0-11.0); Platelet Count 252 10^3/uL (130-400); RBC 4.21 10^6/uL (3.93-5.22); RDW 12.2 % (11.7-14.6); RDW-SD 36.9 fL; WBC 7.76 10^3/uL (4.4-10.8)
[2023-09-10 17:08] LABS: HCG Qual (Serum) Negative
[2023-09-10 17:20] LABS: Anion Gap 11.2 mmol/L (3-11); BUN 23 mg/dL (7-18); CO2 25.8 mmol/L (21.0-32.0); Calcium 9.2 mg/dL (8.5-10.1); Chloride 104 mmol/L (98-107); Estimated GFR 73.49 (mL/min/1.73m2); Glucose 85 mg/dL (74-106); Potassium 3.7 mmol/L (3.5-5.1); Sodium 141 mmol/L (136-145); TSH (W/Ref FT4) 1.41 uIU/mL (0.36-3.74)
== END 2023-09-10 03:19 | disposition home or self-care (01) ==
LOC: LBO 03:18
PROVIDERS: PCP Nurse Practitioner Family; Visit Provider Obstetrics & Gynecology Gynecology
DX: Z01.818 Encounter for other preprocedural examination (principal); R63.5 Abnormal weight gain
CPT/HCPCS: 36415; 80048; 85027; 86850; 86900; 86901; 84443; 84703

== ENCOUNTER 2023-09-12 06:24 | Day surgery (SDC) | payer MEDICAID, SELFPAY ==
[2023-09-12] VITALS (12 sets, daily range): BP systolic 72–187; BP diastolic 27–118; PULSE 72–86; RESP 14–23; TEMP 36.3–36.7; O2SAT 80–97; BMI 41.8
[2023-09-12] MEDS: Lactated Ringers 1,000 ML 125 ML IV (06:56)
--- NOTE | 2023-09-12 07:01 | ANES.PREOP_ITS ---
General Info Date of Service Date Performed: 09/12/23 Height: 5 ft 2 in Weight: 103.9 kg Body Mass Index (BMI): 41.8 Surgical Procedure: Operation Date: 09/12/23 07:40 Proposed Procedure Side Surgeon p Salpingectomy Laparoscopic Bilateral Isabelle Barrera MD s Leep Cone Biopsy Isabelle Barrera MD Meds Allergies and Home Medications Allergies Allergy/AdvReac Type Severity Reaction Status Date / Time No Known Drug Allergies Allergy Other (See Verified 09/12/23 06:35 Comment) Home Medication Medication Instructions Recorded acetaminophen 325 mg capsule 325 mg PO ONCE PRN 01/04/22 (Tylenol) labetalol 200 mg tablet 200 mg PO BID #60 tabs 07/29/23 nifedipine 60 mg tablet,extended 60 mg PO DAILY #90 tabs 07/29/23 release oxycodone-acetaminophen 5 mg-325 1 tab PO Q6H PRN pain #5 tabs 07/29/23 mg tablet (Percocet) Current Visit Medications: Current Medications Generic Name Dose Route Start Last Admin Trade Name Aurelianoq PRN Reason Stop Dose Admin Ringer's Solution 1,000 mls @ 125 mls/hr 09/12/23 06:00 09/12/23 06:56 IV 09/12/23 23:59 125 mls/hr INFUSION PEGGY Administration IV Miscellaneous Supplies 1 each 09/12/23 06:00 Iv Access IV 09/12/23 23:59 DIRECTED PEGGY Sodium Chloride 0 ml 09/12/23 06:00 Normal Saline Flush 10 Ml Syr IV 09/12/23 23:59 PRN PRN Sodium Chloride 0 ml 09/12/23 06:00 Normal Saline 10 Ml Vial IJ 09/12/23 23:59 DIRECTED PRN Sterile Water 0 ml 09/12/23 06:00 Water,Injection,Sterile 10 Ml Vial IJ 09/12/23 23:59 DIRECTED PRN PFSH Active Problems Active Problems: Problem Status Onset Code DANNY II (cervical intraepithelial neoplasia II) N87.1 Weight gain R63.5 Preoperative general physical examination Z01.818 Hx of colposcopy with cervical biopsy Z98.890 (normal spontaneous vaginal delivery) O80 HGSIL on Pap smear of cervix R87.613 Family history of disorder of brain Z82.0 Proteinuria affecting O12.10 BMI 45.0-49.9, adult Z68.42 Chronic hypertension affecting O10.919 Medical History Medical History Elderly multigravida, currently Hypokalemia Hypomagnesemia Kidney calculus Acute right flank pain Bile leak, postoperative Biliary colic Cholelithiasis Body mass index (BMI) of 40.0 to 49.9 06/25/2019 HPV test positive Positive HPV since 2008. Negative colpo directed biopsies. 12/30/18 Neg pap/Pos HPV 06/25/2019: ECC- Contraception (04/11/15) 06/25/2019 Depo-Provera times ~ 5 years after of youngest child. Patient counseled regarding Mirena IUD. ASCUS with positive high risk HPV (08/10/15) Medical History Comments:: Pt reports a hard time waking up in the past, but 02/2022 it was easier than the previous time. Surgical History Surgical History S/P ERCP S/P laparoscopic cholecystectomy H/O wisdom tooth extraction Tobacco Smoking/Tobacco Use Status: Never Passive smoking exposure: No Alcohol Alcohol Intake: never Substance Use Substance use: Never Substance use type: does not use Prental History History 5 Para 4 Hx # Term Pregnancies 4 Multiple births 0 Hx # Pregnancies 0 Ectopic pregnancies 0 AB induced 0 Hx Number of Living Children 4 AB spontaneous 1 Past Pregnancies Del. Date GA/Weeks # Preg Succ Route Wgt Sex Labor Lgth Anesth esia Location Prov [facility] 08/20/08 38 No Yes vaginal 2721.554 g Male [facility] 10/03/11 39 Yes Yes vaginal 3458.642 g Male [facility] 08/13/14 38 No Yes vaginal 3005.049 g Male [place] and 06/18/23 37 No Yes vaginal 3486.991 g Female [facility] Delivery Date: 08/20/08 Last Updated by: Lexie Schmitt IOL for hypertension [place] Delivery Date: 10/03/11 Last Updated by: Lexie Schmitt IOL at 39 wks for HTN, [place] Delivery Date: 08/13/14 Last Updated by: Lexie Schmitt IOL for HTN, to [facility] after for 's agenesis of the corpus collosum, inherited from the father's family, is special needs. Hugh Vital Signs and Lab Results Vital Signs Most Recent Vital Signs in EMR: Most Recent Vital Signs Temp Pulse Resp BP Pulse Ox 36.7 C 86 14 165/105 H 80 L 09/12/23 06:25 09/12/23 06:25 09/12/23 06:25 09/12/23 06:55 09/12/23 06:55 Lab Results Blood Type / Crossmatch: Patient ABO/Rh O Positive 09/10/23 Antibody Screen NEGATIVE 09/10/23 Complete Blood Count: White Blood Count 7.76 10^3/uL (4.4-10.8) 09/10/23 16:05 Red Blood Count 4.21 10^6/uL (3.93-5.22) 09/10/23 16:05 Hemoglobin 12.2 g/dL (11.2-15.7) 09/10/23 16:05 Hematocrit 35.6 % (36.0-46.0) L 09/10/23 16:05 Platelet Count 252 10^3/uL (130-400) 09/10/23 16:05 Complete Metabolic Panel: Sodium 141 mmol/L (136-145) 09/10/23 16:05 Potassium 3.7 mmol/L (3.5-5.1) 09/10/23 16:05 Chloride 104 mmol/L (98-107) 09/10/23 16:05 Carbon Dioxide 25.8 mmol/L (21.0-32.0) 09/10/23 16:05 BUN 23 mg/dL (7-18) H 09/10/23 16:05 Creatinine 1.0 mg/dL (0.55-1.02) 09/10/23 16:05 Est GFR (CKD-EPI 2020) 73.49 (mL/min/1.73m2) 09/10/23 16:05 Calcium 9.2 mg/dL (8.5-10.1) 09/10/23 16:05 Glucose 85 mg/dL (74-106) 09/10/23 16:05 Liver Function Panel: No Data to Display Coagulation Panel: No Data to Display Cardiac Panel: No Data to Display Arterial Blood Gas: No Data to Display Venous Blood Gas: No Data to Display Pancreas Panel: No Data to Display Thyroid Panel: Thyroid Stimulating Hormone (TSH) 1.41 uIU/mL (0.36-3.74) 09/09 16:05 Infectious Disease: No Data to Display Blood Cultures: No Data to Display Toxicology Panel: No Data to Display Panel: Serum HCG, Qualitative Negative 09/10/23 16:05 Anesthesia Assessment and Plan Anesthesia History Personal History: PONV and Delayed Emergence Family History: No Family History of Anesthesia Complications Exercise Tolerance Exercise Tolerance: Metabolic Equivalents>4 Pertinent Negatives Pertinent Negatives: No Symptoms of GERD, No Major Cardiovascular Symptoms or Complaints, No Major Pulmonary Symptoms or Complaints and No History of CVA/TIA Cardiac & Pulmonary Exam Cardiac Exam: Normal S1/S2 Heart Sounds Pulmonary Exam: Clear Bilateral Breath Sounds Implantable Cardiac Device Does patient have a Pacemaker or an ICD?: No Airway Exam Known Difficult Airway: No Mallampati Class: 3 Mouth Opening: Narrow (< 3cm) Thyromental Distance: Less than 3 cm Neck Range of Motion: Known Cervical Instability or radiculopathy (pt has full ROM and denies any numbness/tingling with neck ROM) Neck Circumference: Normal Teeth Condition: Normal Dentition ASA Classification ASA Score: ASA 3 Emergency Case?: No NPO Status NPO Status: NPO Clears >2 hours, Solids >8 hours Status Status: Negative HCG Anesthesia Plan Resuscitation Status: Full Code Anesthesia Technique: General Anesthesia Airway Planned: Endotracheal Tube Monitors Used: Standard Monitors
--- NOTE | 2023-09-12 08:32 | CER_PTH ---
PATIENT: Shania Goff LOC: [facility] U#:[id number] AGE/SX: 38/F ROOM: RE09/12/[address]: Isabelle Barrera : 1985 BED: DIS: 09/12/2023 SPEC #: [id number] RECD: 09/12/23 12:46 STATUS: EMILI MEIER #: [id number] PAOLA: 09/12/23 08:[address]: Isabelle Barrera DEPT: Surgical Specimen RECD BY: Claudia Phelan ENTERED: 09/12/23 12:48 SP TYPE: BOWEN LUTZ DR: JASON MOHAMUD, COMBER TENDER Tissues: 1 - CERVICAL LEEP/LOOP 2 - FALLOPIAN TUBE (STERILIZATION) 3 - FALLOPIAN TUBE (STERILIZATION) Procedures: GROSS AND MICRO LEVEL 2 GROSS AND MICRO LEVEL 5 Comments: [id number]
[2023-09-12] MEDS: Bupivacaine 0.25% Pres-Free 30 ML VIAL (08:37)
[2023-09-12] MEDS: ePHEDrine 25 MG/5 ML Syringe IVP ×4 (09:10→09:32)
--- NOTE | 2023-09-12 10:00 | PDOC.DSDIS_ITS ---
Date of service: 09/12/23 Time of Service: 10:00 Discharge Plan Disposition Patient Disposition: Home Condition: Stable Discharge Details Reason For Visit: sterilization and LEEP Attending Provider: Isabelle Barrera Primary Care Provider: JASON MOHAMUD Home Meds and New Rx's Prescriptions: No Action oxycodone-acetaminophen [Percocet] 5-325 mg tablet 1 tab PO Q6H MDD 4 PRN (Reason: pain) Qty: 5 0RF Patient Comments: Not started, Post Op medication labetalol 200 mg tablet 200 mg PO BID Qty: 60 4RF nifedipine 60 mg tablet extended release 60 mg PO DAILY Qty: 90 3RF acetaminophen [Tylenol] 325 mg capsule 325 mg PO ONCE PRN Discharge Instructions Additional Instructions: You will have yellow and black discharge from your vagina for the next 4 weeks. Nothing in the vagina until your 4w postop visit. I recommend that you only shower until your 4 week postop visit. You have a prescription for Ibuprofen that I have called into your pharmacy. You may use the Percocet prescription that you received last week for stronger pain. Take one tablet of the 5/325mg every six hours as needed. You may take them together or alternate them. Leave the white tape on your skin. You may change the BandAid as needed. Stand Alone Forms: Anesthesia Discharge InstMichael, Angelica Valencia ([facility]) Referrals: Isabelle Barrera MD [ [facility] STAFF PHYSICIAN] - 09/24/23 4:00 pm Activity:: Activity as Tolerated Diet:: As Tolerated Discharge Orders Discharge Orders: Discharge Order (Routine); Ordered 09/12/23 Ordered By: Isabelle Barrera DS: Diagnosis Discharge Diagnosis (1) DANNY II (cervical intraepithelial neoplasia II): Status: Acute (2) Encounter for female sterilization procedure: Status: Acute (3) Hx LEEP (loop electrosurgical excision procedure), cervix, : Status: Acute
--- NOTE | 2023-09-12 10:13 | W.ANESPOSTOP ---
Postoperative Evaluation Date, Time and Location Date Performed: 09/12/23 Time Performed: 10:13 Patient Location: Day Surgery Unit Vital Signs Most Recent Imported Vital Signs: Most Recent Vital Signs Temp Pulse Resp BP Pulse Ox 36.3 C L 78 16 121/65 92 09/12/23 10:00 09/12/23 10:00 09/12/23 10:00 09/12/23 10:00 09/12/23 10:00 Pain Score Most Recent Pain Score: Most Recent Pain Score Pain Level 7 09/12/23 09:30 Assessment Mental Status: Awake (Alert & Oriented to Patient Baseline) Airway and Respiratory Function: Patent airway with normal (patient baseline) respiratory exam Cardiovascular Function: Hemodynamically Stable Hydration Status: Adequately Hydrated Nausea & Vomiting: No Nausea or Vomiting Pain: Pain is tolerable per patient Peripheral Nerve Block: Patient did not receive a nerve block
[2023-09-12] MEDS: oxyCODONE 5 mg/Acetaminophen 325 mg TAB 1 TAB PO (10:44)
--- NOTE | 2023-09-12 16:31 | W.PM.OP ---
Date of service: 09/12/23 Time of Service: 16:31 Operative Note Operative Note DATE OF PROCEDURE: 09/12/23 PRE-OP DIAGNOSIS: undesired fertility. CIN2 PROCEDURE: laparoscopic bilateral salpingectomy, loop electrocautery excision procedure SURGEON: Isabelle Barrera ASSISTING SURGEON: Jaye Marin Refer to Anesthesia Record ESTIMATED BLOOD LOSS: 5 PATHOLOGY: other (bilateral fallopian tubes. Cervical excision specimen) COMPLICATIONS: None Patient was transported to: PACU Patient's condition: stable Indications: 38yo female who desires permanent sterilization. 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 Findings: Nl uterus, normal adnexa, normal upper abdomen. Normal appearing cervix. The procedure was not performed with the assistance of acetic acid. Procedure Description: Patient was taken to the operating room where she was placed in the dorsal supine position and endotracheal anesthesia was administered without difficulty. SCDs were in place. She was then placed in the dorsolithotomy position. A surgical timeout was performed. She was prepped and draped in the usual sterile fashion. A bivalve speculum was placed in the vagina and the cervix was visualized and grasped with a single-tooth tenaculum. A [employer] uterine manipulator was inserted into the cervix and left in place. Attention was turned to the abdomen and the the umbilical fold was infiltrated with 0.25% Marcaine without epinephrine and 12 mm vertical skin incision was made in the umbilicus. Through this incision a Veres needle connected to carbon dioxide gas was inserted into the abdomen and intra-abdominal placement confirmed by drop in the intra-abdominal pressure. Once a pneumoperitoneum was established a 12 mm Visiport trocar was introduced into the abdomen under direct visualization. The patient was then placed in Trendelenburg and 2 sites on the abdomen approximately 6 cm diagonal to the right of and left of the umbilical incision were transilluminated the skin infiltrated with 0.25% Marcaine incised with a scalpel and under direct visualization two 5 mm ports were placed in the right and left lower quadrants respectively. The abdomen was inspected with the above-noted findings. The left fallopian tube located and followed out to its fimbriated end and a LigaSure electrocautery device was used to clamp cauterize and transect the fimbria from the left mesosalpinx to the level of the left uterine cornua. The left fallopian tube was then delivered through the 10 mm umbilical port and passed off of the operative field. A similar technique was carried out on the right fallopian tube without difficulty. The right fallopian tube was then delivered through the umbilical port. Both fallopian tube pedicles were inspected and noted to be hemostatic. Under direct visualization the two 5 mm ports were removed, pneumoperitoneum reduced, and the umbilical port removed. The fascia of the umbilical port site was reapproximated with interrupted suture of 0 Vicryl. The skin of all trocar sites was reapproximated with 4-0 Monocryl and covered with dry sterile dressings. An insulated Graves speculum with attached smoke removal device was inserted into the vagina. The face of the cervix was infiltrated with a solution of 0.25% Marcaine with dilute Epinephrine for a total of 6 cc. The cervix was grasped with an insulated tenaculum and a 20 mm x 10 mm radius loop electrode was attached to electrocautery with a cutting current of 45. A single specimen of the ectocervix was removed and a single pass from the 3:00 to 9 o'clock position. The sample was collected and placed in formalin. The insulated tenaculum was removed. A ball electrode was then applied to the LEEP bed with a current of 50 coag/1 cutting with satisfactory hemostasis achieved. The LEEP bed was then treated with application of Monsel's paste with excellent hemostasis achieved. After final inspection of the cervical excision site instruments were removed from the patient's vagina. The patient was awakened extubated and transported to recovery area in stable condition. All sponge lap needle counts are correct x2.
== END 2023-09-12 11:16 | disposition home or self-care (01) ==
PROVIDERS: PCP Nurse Practitioner Family; Visit Provider Obstetrics & Gynecology Gynecology
PROC: (CPT 58661; principal; 2023-09-12 07:30)
PROC: 0UBC7ZZ Excision of Cervix, Via Natural or Artificial Opening (ICD-10-PCS; CPT 57522; 2023-09-12 07:30)
DX: N87.1 Moderate cervical dysplasia (principal); Z30.2 Encounter for sterilization
CPT/HCPCS: 58661; 57461; 88302; 88307; J0131; J0665; J1100; J1885; J2001; J2405; J2704

== ENCOUNTER 2024-09-08 12:36 | Outpatient (CLI) | payer MEDICAID, SELFPAY ==
[2024-09-08 17:20] LABS: Hemoglobin A1C 5.5 % (<5.7)
[2024-09-08 17:30] LABS: Microalb ug/mg Crea 9.6 ug/mg Cr
[2024-09-08 17:56] LABS: Anion Gap 10.9 mmol/L (3-11); BUN 19 mg/dL (7-18); CO2 28.1 mmol/L (21.0-32.0); CREATININE 1.1 mg/dL (0.55-1.02); Calcium 8.9 mg/dL (8.5-10.1); Calculated LDL 98 mg/dL (<100); Chloride 103 mmol/L (98-107); Cholesterol 181 mg/dL (<200); Estimated GFR 65.14 (mL/min/1.73m2); Glucose 97 mg/dL (74-106); HDL Cholesterol 55 mg/dL (>or=50); Potassium 3.3 mmol/L (3.5-5.1); Sodium 142 mmol/L (136-145); Triglyceride 144 mg/dL (<150)
== END 2024-09-08 12:37 | disposition home or self-care (01) ==
LOC: LBO 12:37
PROVIDERS: PCP Nurse Practitioner Family; Visit Provider Nurse Practitioner Family
DX: I10 Essential (primary) hypertension (principal); Z68.42 Body mass index [BMI] 45.0-49.9, adult; Z13.220 Encounter for screening for lipoid disorders
CPT/HCPCS: 36415; 80048; 80061; 82043; 82570; 83036

== ENCOUNTER 2024-09-21 15:46 | Outpatient (REF) | payer MEDICAID, SELFPAY ==
--- NOTE | 2024-09-21 15:30 | PAPFT_PTH ---
PATIENT: Shania Goff LOC: [facility] U#:[id number] AGE/SX: 39/F ROOM: RE09/21/[address]: Latrice Hobbs NP : 1985 BED: DIS: 09/21/2024 SPEC #: [id number] RECD: 09/21/24 16:50 STATUS: EMILI REQ #: [id number] PAOLA: 09/21/24 15:[address]: Anjel LUKE,Latrice DEPT: [facility] Cytology RECD BY: Claudia Phelan ENTERED: 09/21/24 16:50 SP TYPE: PAPFT OTHR DR: JASON MOHAMUD NP Tissues: 1 - CX/ENDOCX FOR PAP SMEARS Procedures: PAP THIN PREP/UVM Screening HPV DNA PROBE Comments: [id number] (HPV 16 & 18/45) (CHLAMYDIA/GC)
[2024-09-22 11:59] LABS: Chlamydia Result Negative (Negative); GC Result Negative (Negative)
== END 2024-09-21 15:47 | disposition home or self-care (01) ==
LOC: LBN 15:46
PROVIDERS: PCP Nurse Practitioner Family; Visit Provider Nurse Practitioner Women's Health
DX: Z11.51 Encounter for screening for human papillomavirus (HPV) (principal); Z01.419 Encounter for gynecological examination (general) (routine) without abnormal findings; Z11.3 Encounter for screening for infections with a predominantly sexual mode of transmission; N76.0 Acute vaginitis
CPT/HCPCS: 87491; 87591; 88142; 87624